=== PATIENT | male | born 1955 | race Caucasian/White ===

== ENCOUNTER 2019-08-01 16:35 | Inpatient (IN) | payer MEDICAID ==
[~2019-08-01] VITALS: Ht 182.9 cm; Wt 83.2 kg
[2019-08-01 17:11] LABS: BASO # 0.1 x10^3/uL (0.0-0.2); BASO % 1 % (0-3); EOS # 0.1 x10^3/uL (0.0-0.7); EOS % 1 % (0-3); HEMATOCRIT 40.9 % (39.0-53.0); HEMOGLOBIN 14.5 g/dL (13.0-17.5); LYMPH # 2.7 x10^3/uL (1.0-4.8); LYMPH % 33 % (24-48); MEAN CORPUSCULAR HEMOGLOBIN 32 pg (25-35); MEAN CORPUSCULAR HGB CONC 36 g/dL (31-37); MEAN CORPUSCULAR VOLUME 89 fL (79-100); MONO # 0.9 x10^3/uL (0.0-1.1); MONO % 11 % (0-9); NEUT # 4.4 x10^3/uL (1.8-7.7); NEUT % 54 % (31-73); PLATELET COUNT 96 x10^3/uL (140-400); RED BLOOD COUNT 4.58 x10^6/uL (4.30-5.70); RED CELL DISTRIBUTION WIDTH 13.9 % (11.5-14.5); WHITE BLOOD COUNT 8.2 x10^3/uL (4.0-11.0)
[2019-08-01] MEDS ORDERED: IV NORMAL SALINE 1000ML BAG 1,000 ML IV ONE (17:15)
[2019-08-01 17:21] LABS: PROTHROMBIN TIME PATIENT 13.3 SEC (11.7-14.0)
[2019-08-01 17:48] LABS: ALBUMIN 2.9 g/dL (3.4-5.0); ALBUMIN/GLOBULIN RATIO 0.9 (1.0-1.7); CALCIUM 7.8 mg/dL (8.5-10.1); CREATININE 0.8 mg/dL (0.7-1.3); TOTAL BILIRUBIN 0.6 mg/dL (0.2-1.0); TOTAL PROTEIN 6.3 g/dL (6.4-8.2)
[2019-08-01 17:53] LABS: POTASSIUM 2.7 mmol/L (3.5-5.1)
[2019-08-01 17:57] LABS: FREE T4 0.86 ng/dL (0.76-1.46); THYROID STIM HORMONE (TSH) 0.34 uIU/mL (0.358-3.74)
--- NOTE | 2019-08-01 18:23 | PHYS DOC ---
Past Medical History Past Medical History: A-Fib, Arthritis, Hypertension Additional Past Medical Histor: DDD Past Surgical History: No Surgical History Smoking Status: Never Smoker Alcohol Use: Heavy General Adult EDM: Chief Complaint: ALCOHOL INTOXICATION HPI: HPI: Patient is a 64 year old male who was brought here by EMS due to alcohol intoxication. Patient was found sleeping in front of a liquor store. EMS were called, he admitted to drinking heavy amount of whiskey today. Patient is h omeless he been outside in the heat, sustained some sunburn on his extremities. Patient said he has a history of hypertension, atrial fibrillation. Patient denies any abdominal pain, no nausea vomiting, no suicidal ideation. Patient denies any cough or fever. Patient denies any headache, no neck pain. Patient denies being fallen after he drank alcohol. Review of Systems: Review of Systems: Constitutional: Denies fever or chills. [] Eyes: Denies change in visual acuity. [] HENT: Denies nasal congestion or sore throat. [] Respiratory: Denies cough or shortness of breath. [] Cardiovascular: Denies chest pain or edema. [] GI: Denies abdominal pain, nausea, vomiting, bloody stools or diarrhea. [] : Denies dysuria. [] Musculoskeletal: Denies back pain or joint pain. [] Integument: Denies rash. [] Neurologic: Denies headache, focal weakness or sensory changes. [] Endocrine: Denies polyuria or polydipsia. [] Lymphatic: Denies swollen glands. [] Psychiatric: Denies depression or anxiety. [] Heart Score: Risk Factors: Risk Factors: DM, Current or recent (<one month) smoker, HTN, HLP, family history of CAD, obesity. Risk Scores: Score 0 - 3: 2.5% MACE over next 6 weeks - Discharge Home Score 4 - 6: 20.3% MACE over next 6 weeks - Admit for Clinical Observation Score 7 - 10: 72.7% MACE over next 6 weeks - Early Invasive Strategies Current Medications: Current Medications Medications (Trade) Dose Ordered Sig/Zander Start Time Stop Time Status Last Admin Dose Admin Calcium Chloride (Calcium Chloride) 1,000 mg 1X ONCE 08/01/19 18:30 08/01/19 18:31 Diltiazem HCl (Cardizem Iv Push) 20 mg 1X ONCE 08/01/19 18:30 08/01/19 18:31 Lorazepam (Ativan Inj) 1 mg 1X ONCE 08/01/19 18:00 08/01/19 18:01 DC Potassium Chloride (Klor-Con) 80 meq 1X ONCE 08/01/19 18:30 08/01/19 18:31 Sodium Chloride 1,000 ml @ 1,000 mls/hr 1X ONCE 08/01/19 17:15 08/01/19 18:14 DC 08/01/19 17:15 1,000 MLS/HR Allergies: Allergies: Allergies Coded Allergies Type Severity Reaction Last Updated Verified No Known Drug Allergies 08/01/19 No Physical Exam: PE: Constitutional: Well developed, well nourished, no acute distress, non-toxic appearance. [] HENT: Normocephalic, atraumatic, bilateral external ears normal, oropharynx moist, no oral exudates, nose normal. [] Eyes: PERRLA, EOMI, conjunctiva normal, no discharge. [] Neck: Normal range of motion, no tenderness, supple, no stridor. [] Cardiovascular: Rapid heart rate with irregular rhythm, no murmur [] Lungs & Thorax: Bilateral breath sounds clear to auscultation [] Abdomen: Bowel sounds normal, soft, no tenderness, no masses, no pulsatile masses. [] Skin: Warm, dry,erythema, sunburn pattern, 1st degree on upper and lower extremities, no blisters. Back: No tenderness, no CVA tenderness. [] Extremities: pitting edema in lower extremities, 3 plus. No bony tenderness, no deformity. Neurologic: Alert and oriented X 3, normal motor function, normal sensory function, no focal deficits noted. [] Psychologic: Affect normal, judgement normal, mood normal. [] Current Patient Data: Labs: Laboratory Tests Test 08/01/19 16:45 08/01/19 17:15 White Blood Count 8.2 x10^3/uL (4.0-11.0) Red Blood Count 4.58 x10^6/uL (4.30-5.70) Hemoglobin 14.5 g/dL (13.0-17.5) Hematocrit 40.9 % (39.0-53.0) Mean Corpuscular Volume 89 fL (79-100) Mean Corpuscular Hemoglobin 32 pg (25-35) Mean Corpuscular Hemoglobin Concent 36 g/dL (31-37) Red Cell Distribution Width 13.9 % (11.5-14.5) Platelet Count 96 x10^3/uL (140-400) L Neutrophils (%) (Auto) 54 % (31-73) Lymphocytes (%) (Auto) 33 % (24-48) Monocytes (%) (Auto) 11 % (0-9) H Eosinophils (%) (Auto) 1 % (0-3) Basophils (%) (Auto) 1 % (0-3) Neutrophils # (Auto) 4.4 x10^3/uL (1.8-7.7) Lymphocytes # (Auto) 2.7 x10^3/uL (1.0-4.8) Monocytes # (Auto) 0.9 x10^3/uL (0.0-1.1) Eosinophils # (Auto) 0.1 x10^3/uL (0.0-0.7) Basophils # (Auto) 0.1 x10^3/uL (0.0-0.2) Prothrombin Time 13.3 SEC (11.7-14.0) Prothrombin Time INR 1.1 (0.8-1.1) Activated Partial Thromboplast Time 26 SEC (24-38) Sodium Level 147 mmol/L (136-145) H Potassium Level 2.7 mmol/L (3.5-5.1) *L Chloride Level 109 mmol/L (98-107) H Carbon Dioxide Level 22 mmol/L (21-32) Anion Gap 16 (6-14) H Blood Urea Nitrogen 8 mg/dL (8-26) Creatinine 0.8 mg/dL (0.7-1.3) Estimated GFR (Cockcroft-Gault) 98.0 BUN/Creatinine Ratio 10 (6-20) Glucose Level 101 mg/dL (70-99) H Calcium Level 7.8 mg/dL (8.5-10.1) L Total Bilirubin 0.6 mg/dL (0.2-1.0) Aspartate Amino Transferase (AST) 44 U/L (15-37) H Alanine Aminotransferase (ALT) 32 U/L (16-63) Alkaline Phosphatase 106 U/L (46-116) Troponin I Quantitative 0.037 ng/mL (0.000-0.055) DQ-Brw-U-Type Natriuretic Peptide 543 pg/mL (0-124) H Total Protein 6.3 g/dL (6.4-8.2) L Albumin 2.9 g/dL (3.4-5.0) L Albumin/Globulin Ratio 0.9 (1.0-1.7) L Lipase 144 U/L (73-393) Thyroid Stimulating Hormone (TSH) 0.340 uIU/mL (0.358-3.74) L Free Thyroxine 0.86 ng/dL (0.76-1.46) Ethyl Alcohol Level 384 mg/dL (0-10) H Laboratory Tests 08/01/19 16:45 Laboratory Tests 08/01/19 17:15 Vital Signs: Vital Signs Date Time Temp Pulse Resp B/P (MAP) Pulse Ox O2 Delivery O2 Flow Rate FiO2 08/01/19 17:11 99 16 128/72 (90) 95 Room Air 08/01/19 16:35 99.4 99.4 EKG: EKG: EKG was done at 1647, heart rate of 138 bpm, atrial fibrillation with RVR. No ST segment elevation. [] Radiology/Procedures: Radiology/Procedures: [][facility] [address] [place] [address] IMAGING REPORT Signed PATIENT: THONY GRIGGS ACCOUNT: [id number] : 1955 LOCATION: ER AGE: 64 SEX: M EXAM STATUS: PRE ER ORD. PHYSICIAN: WINDY DE JESUS DO REASON: soa PROCEDURE: CHEST AP ONLY CHEST AP ONLY 08/01/2019 6:03 PM INDICATION: Shortness of air COMPARISON: None available TECHNIQUE: Portable frontal view of the chest is provided. FINDINGS: The cardiomediastinal silhouette is within normal limits. Lungs are clear. There are no significant pleural effusions. There is no pulmonary vascular congestion. No pneumothorax. No suspicious osseous abnormality. IMPRESSION: There is no acute cardiopulmonary process. Electronically signed by: Collin Ortiz MD (08/01/2019 6:29 PM) [facility] DICTATED and SIGNED BY: COLLIN ORTIZ MD DATE: 08/01/19 1829 Course & Med Decision Making: Course & Med Decision Making Pertinent Labs and Imaging studies reviewed. (See chart for details) Patient is a 64-year-old male who is homeless, intoxicated, found to have atrial fibrillation with RVR, history of A. fib. His potassium level was low, patient was given 80 mEq of potassium p.o., he was given Cardizem IV bolus and drip. Patient was given IV fluids, he will be admitted to hospital for treatment. Critical care time was [45] minutes which includes time at bedside, spent in discussion of patient's care with specialist and/or family members, with interpretation of laboratory and/or radiological studies and is exclusive of procedures. Dragon Disclaimer: Dragon Disclaimer: This electronic medical record was generated, in whole or in part, using a voice recognition dictation system. Departure Departure Impression: Primary Impression: Atrial fibrillation with RVR Additional Impressions: Alcohol intoxication Hypokalemia Disposition: ADMITTED INPATIENT Admitting Physician: APRYL (Dr. Schultz) Condition: IMPROVED Justicifation of Admission Dx: Justifications for Admission: Justification of Admission Dx: N/A WINDY DE JESUS DO Aug 01, 2019 18:23
[2019-08-01] MEDS ORDERED: ALBUTEROL SULFATE 2.5 MG/3 ML NEBU. NEB PRN (18:30)
[2019-08-01] MEDS ORDERED: ONDANSETRON PF 4 MG/2 ML VIAL. IV PRN ×2 (18:30)
[2019-08-01] MEDS ORDERED: chlordiazePOXIDE HCL 25 MG CAPSULE PO PRN (18:30)
[2019-08-01] MEDS ORDERED: CALCIUM CHLORIDE 1,000 MG/10 ML DISP.SYRIN IV ONE (18:30)
[2019-08-01] MEDS ORDERED: POTASSIUM CHLORIDE 20 MEQ TABLET.ER. PO ONE (18:30)
[2019-08-01] MEDS ORDERED: DOCUSATE SODIUM 100 MG CAPSULE. PO PRN (18:30)
[2019-08-01] MEDS ORDERED: DILTIAZEM HCL 125 MG in IV NORMAL SALINE 100ML 100 ML IV PRN (18:30)
[2019-08-01] MEDS ORDERED: ZOLPIDEM 5 MG TABLET. PO PRN (18:30)
[2019-08-01] MEDS ORDERED: cloNIDine HCL 0.1 MG TABLET PO PRN (18:30)
[2019-08-01] MEDS ORDERED: ACETAMINOPHEN 325 MG TABLET. PO PRN (18:30)
[2019-08-01] MEDS ORDERED: guaiFENesin ORAL 200 MG/10 ML LIQUID. PO PRN (18:30)
[2019-08-01] MEDS ORDERED: dilTIAZem IV PUSH 25 MG/5 ML VIAL IVP ONE (18:30)
--- NOTE | 2019-08-01 18:32 | RAD ---
CHEST AP ONLY 08/01/2019 6:03 PM INDICATION: Shortness of air COMPARISON: None available TECHNIQUE: Portable frontal view of the chest is provided. FINDINGS: The cardiomediastinal silhouette is within normal limits. Lungs are clear. There are no significant pleural effusions. There is no pulmonary vascular congestion. No pneumothorax. No suspicious osseous abnormality. IMPRESSION: There is no acute cardiopulmonary process. Electronically signed by: Briseida Butt MD (08/01/2019 6:29 PM) [facility]
[2019-08-01] MEDS ORDERED: MULTIVIT INFUSN,ADULT 4,VIT K 10 ML, THIAMINE INJ 100 MG, FOLIC ACID INJ 1 MG in IV NOR... IV ONE (19:00)
[2019-08-01] MEDS: MULTIVIT INFUSN,ADULT 4,VIT K 10 ML, THIAMINE INJ 100 MG, FOLIC ACID INJ 1 MG in IV NOR... IV SCH (19:15)
[2019-08-01] MEDS: DILTIAZEM HCL 125 MG in IV NORMAL SALINE 100ML 100 ML IV PRN ×6 (19:15→21:44)
[2019-08-01 20:24] VITALS: BP 168/81
--- NOTE | 2019-08-01 20:47 | PDOC1 ---
History and Physical Date of Admission Date of Admission July Identification/Chief Complaint Chief Complaint My legs are hurting Source Source: Chart review, Patient History of Present Illness History of Present Illness Patient is a 64 year old male with a significant cardiac history for which he has been evaluated at [facility]. He had a cardiac cath aproximately a month ago, he does not report having stents placed, was told he had blocakges but di not warrant stents at this time. Today he was found outside of a [employer] store asleep and was brought by EMS after a concerned citizen decided to call the ambulance. He was evaluated in the ED and found to be acutely intoxicated, he developed rapid ventricular response of his underlying Atrial fibrillation reason why we were asked to admit to the hospital At the time of my visit. the patient's only complain is burning sensation over his bilateral legs due to sunburn that he endured while fishing with his buddies 2 days ago. He had been sober since and tells me he was a daily drinker of beer and bourbon but decided to "quit" in january until this fishing trip when he was prompted to drink again. He denies chest pain palpitations no shorness of breath, no nausea vomiting or diarrhea. He denies headache blurred vision or neurological deficits. Plan of care discussed in detail. Past Medical History Cardiovascular: AFIB, CAD, CHF Past Surgical History Past Surgical History: No pertinent history Family History Family History: Other (reviewed and found non contributory to the present ) Current Problem List Problem List Problems Medical Problems: (1) Alcohol intoxication Status: Acute (2) Atrial fibrillation with RVR Status: Acute (3) Hypokalemia Status: Acute Current Medications Current Medications Current Medications Medications (Trade) Dose Ordered Sig/Zander Start Time Stop Time Status Last Admin Dose Admin Acetaminophen (Tylenol) 650 mg PRN Q4HRS PRN 08/01/19 18:30 Albuterol Sulfate (Ventolin Neb Soln) 2.5 mg PRN Q4HRS PRN 08/01/19 18:30 Calcium Chloride (Calcium Chloride) 1,000 mg 1X ONCE 08/01/19 18:30 08/01/19 18:31 DC 08/01/19 18:31 1,000 MG Chlordiazepoxide (Librium) 100 mg PRN Q1HR PRN 08/01/19 18:30 Clonidine HCl (Catapres) 0.1 mg PRN Q1HR PRN 08/01/19 18:30 Diltiazem HCl (Cardizem Iv Push) 20 mg 1X ONCE 08/01/19 18:30 08/01/19 18:31 DC 08/01/19 18:31 20 MG Diltiazem HCl 125 mg/Sodium Chloride 125 ml @ 5 mls/hr CONT PRN 08/01/19 18:30 UNV Docusate Sodium (Colace) 100 mg PRN BID PRN 08/01/19 18:30 Enoxaparin Sodium (Lovenox 60mg Syringe) 60 mg Q12HR 08/01/19 21:00 Guaifenesin (Robitussin) 200 mg PRN Q4HRS PRN 08/01/19 18:30 Lorazepam (Ativan Inj) 2 mg PRN Q15MIN PRN 08/01/19 18:30 08/01/19 19:27 DC Lorazepam (Ativan) 0.5 mg PRN Q4HRS PRN 08/01/19 18:30 Multivitamins 10 ml/Thiamine HCl 100 mg/Folic Acid 1 mg/Sodium Chloride 1,011.2 ml @ 100 mls/ hr DAILY 08/02/19 09:00 08/06/19 19:07 Ondansetron HCl (Zofran) 4 mg PRN Q4HRS PRN 08/01/19 18:30 Potassium Chloride (Klor-Con) 80 meq 1X ONCE 08/01/19 18:30 08/01/19 18:31 DC 08/01/19 18:32 80 MEQ Sodium Chloride 1,000 ml @ 1,000 mls/hr 1X ONCE 08/01/19 17:15 08/01/19 18:14 DC 08/01/19 17:15 1,000 MLS/HR Zolpidem Tartrate (Ambien) 5 mg PRN QHS PRN 08/01/19 18:30 Allergies Allergies Allergies Coded Allergies Type Severity Reaction Last Updated Verified No Known Drug Allergies 08/01/19 No ROS Review of System CONSTITUTIONAL: No fever or chills EYES: No recent changes SKIN: No rash or itching CARDIOVASCULAR: No chest pain, syncope, palpitations, or edema RESPIRATORY: No SOB or cough GASTROINTESTINAL: No nausea, vomiting or abdominal pain NEUROLOGICAL: No headaches or weakness ENDOCRINE: No cold or heat intolerance GENITOURINARY: No urgency or frequency of urination MUSCULOSKELETAL: No back pain or joint pain LYMPHATICS: No enlarged lymph nodes PSYCHIATRIC: No anxiety or depression Physical Exam Physical Exam GEN.: No apparent distress. Alert and oriented. HEENT: Head is normocephalic, atraumatic NECK: Supple. LUNGS: Clear to auscultation. HEART: RRR, S1, S2 present. Peripheral pulses intact ABDOMEN: Soft, nontender. Positive bowel sounds. EXTREMITIES: Without any cyanosis. NEUROLOGIC: Normal speech, normal tone PSYCHIATRIC: Normal affect, normal mood. SKIN: No ulcerations Vitals Vitals Vital Signs Date Time Temp Pulse Resp B/P (MAP) Pulse Ox O2 Delivery O2 Flow Rate FiO2 08/01/19 20:24 97.5 130 20 168/81 (110) 94 Room Air 97.5 Labs Labs Laboratory Tests Test 08/01/19 16:45 08/01/19 17:15 White Blood Count 8.2 x10^3/uL (4.0-11.0) Red Blood Count 4.58 x10^6/uL (4.30-5.70) Hemoglobin 14.5 g/dL (13.0-17.5) Hematocrit 40.9 % (39.0-53.0) Mean Corpuscular Volume 89 fL (79-100) Mean Corpuscular Hemoglobin 32 pg (25-35) Mean Corpuscular Hemoglobin Concent 36 g/dL (31-37) Red Cell Distribution Width 13.9 % (11.5-14.5) Platelet Count 96 x10^3/uL (140-400) Neutrophils (%) (Auto) 54 % (31-73) Lymphocytes (%) (Auto) 33 % (24-48) Monocytes (%) (Auto) 11 % (0-9) Eosinophils (%) (Auto) 1 % (0-3) Basophils (%) (Auto) 1 % (0-3) Neutrophils # (Auto) 4.4 x10^3/uL (1.8-7.7) Lymphocytes # (Auto) 2.7 x10^3/uL (1.0-4.8) Monocytes # (Auto) 0.9 x10^3/uL (0.0-1.1) Eosinophils # (Auto) 0.1 x10^3/uL (0.0-0.7) Basophils # (Auto) 0.1 x10^3/uL (0.0-0.2) Prothrombin Time 13.3 SEC (11.7-14.0) Prothromb Time International Ratio 1.1 (0.8-1.1) Activated Partial Thromboplast Time 26 SEC (24-38) Sodium Level 147 mmol/L (136-145) Potassium Level 2.7 mmol/L (3.5-5.1) Chloride Level 109 mmol/L (98-107) Carbon Dioxide Level 22 mmol/L (21-32) Anion Gap 16 (6-14) Blood Urea Nitrogen 8 mg/dL (8-26) Creatinine 0.8 mg/dL (0.7-1.3) Estimated GFR (Cockcroft-Gault) 98.0 BUN/Creatinine Ratio 10 (6-20) Glucose Level 101 mg/dL (70-99) Calcium Level 7.8 mg/dL (8.5-10.1) Magnesium Level 1.6 mg/dL (1.8-2.4) Total Bilirubin 0.6 mg/dL (0.2-1.0) Aspartate Amino Transf (AST/SGOT) 44 U/L (15-37) Alanine Aminotransferase (ALT/SGPT) 32 U/L (16-63) Alkaline Phosphatase 106 U/L (46-116) Troponin I Quantitative 0.037 ng/mL (0.000-0.055) IZ-Llu-T-Type Natriuretic Peptide 543 pg/mL (0-124) Total Protein 6.3 g/dL (6.4-8.2) Albumin 2.9 g/dL (3.4-5.0) Albumin/Globulin Ratio 0.9 (1.0-1.7) Lipase 144 U/L (73-393) Thyroid Stimulating Hormone (TSH) 0.340 uIU/mL (0.358-3.74) Free Thyroxine 0.86 ng/dL (0.76-1.46) Ethyl Alcohol Level 384 mg/dL (0-10) Laboratory Tests Test 08/01/19 16:45 08/01/19 17:15 White Blood Count 8.2 x10^3/uL (4.0-11.0) Red Blood Count 4.58 x10^6/uL (4.30-5.70) Hemoglobin 14.5 g/dL (13.0-17.5) Hematocrit 40.9 % (39.0-53.0) Mean Corpuscular Volume 89 fL (79-100) Mean Corpuscular Hemoglobin 32 pg (25-35) Mean Corpuscular Hemoglobin Concent 36 g/dL (31-37) Red Cell Distribution Width 13.9 % (11.5-14.5) Platelet Count 96 x10^3/uL (140-400) Neutrophils (%) (Auto) 54 % (31-73) Lymphocytes (%) (Auto) 33 % (24-48) Monocytes (%) (Auto) 11 % (0-9) Eosinophils (%) (Auto) 1 % (0-3) Basophils (%) (Auto) 1 % (0-3) Neutrophils # (Auto) 4.4 x10^3/uL (1.8-7.7) Lymphocytes # (Auto) 2.7 x10^3/uL (1.0-4.8) Monocytes # (Auto) 0.9 x10^3/uL (0.0-1.1) Eosinophils # (Auto) 0.1 x10^3/uL (0.0-0.7) Basophils # (Auto) 0.1 x10^3/uL (0.0-0.2) Prothrombin Time 13.3 SEC (11.7-14.0) Prothromb Time International Ratio 1.1 (0.8-1.1) Activated Partial Thromboplast Time 26 SEC (24-38) Sodium Level 147 mmol/L (136-145) Potassium Level 2.7 mmol/L (3.5-5.1) Chloride Level 109 mmol/L (98-107) Carbon Dioxide Level 22 mmol/L (21-32) Anion Gap 16 (6-14) Blood Urea Nitrogen 8 mg/dL (8-26) Creatinine 0.8 mg/dL (0.7-1.3) Estimated GFR (Cockcroft-Gault) 98.0 BUN/Creatinine Ratio 10 (6-20) Glucose Level 101 mg/dL (70-99) Calcium Level 7.8 mg/dL (8.5-10.1) Magnesium Level 1.6 mg/dL (1.8-2.4) Total Bilirubin 0.6 mg/dL (0.2-1.0) Aspartate Amino Transf (AST/SGOT) 44 U/L (15-37) Alanine Aminotransferase (ALT/SGPT) 32 U/L (16-63) Alkaline Phosphatase 106 U/L (46-116) Troponin I Quantitative 0.037 ng/mL (0.000-0.055) WB-Evs-B-Type Natriuretic Peptide 543 pg/mL (0-124) Total Protein 6.3 g/dL (6.4-8.2) Albumin 2.9 g/dL (3.4-5.0) Albumin/Globulin Ratio 0.9 (1.0-1.7) Lipase 144 U/L (73-393) Thyroid Stimulating Hormone (TSH) 0.340 uIU/mL (0.358-3.74) Free Thyroxine 0.86 ng/dL (0.76-1.46) Ethyl Alcohol Level 384 mg/dL (0-10) VTE Prophylaxis Ordered VTE Prophylaxis Devices: Yes VTE Pharmacological Prophylaxi: Yes Assessment/Plan Assessment/Plan Atrial fibrillation with RVR. Probably aggravated by the effects of alcohol Hypokalemia Hyperglycemia of no clinical significance Acute alcohol intoxication History of CAD currently asymptomatic Plan: cardizem for rate control resume medications once available for review admit to [facility] floor request records from [facility] DVT prophylaxis: Lovenox Justicifation of Admission Dx: Justifications for Admission: Justification of Admission Dx: Comment: (atrial fibrillation RVR) OMAYRA WOODS MD Aug 01, 2019 20:47
[2019-08-01] MEDS: LORazepam 0.5 MG TABLET PO PRN (20:55)
[2019-08-01] MEDS: ENOXAPARIN 40 MG/0.4 ML SYRINGE. SQ SCH (21:00)
[2019-08-01] MEDS ORDERED: fentaNYL PF VIAL 100 MCG/2 ML VIAL IVP PRN (21:45)
[2019-08-01] MEDS: HYDROCORTISONE 1% TOPICAL CREAM 30GM TUBE. TP SCH (21:46)
[2019-08-01] MEDS: traZODone 50 MG TABLET. PO PRN (22:47)
[2019-08-01 23:30] VITALS: BP 130/62
[2019-08-02] MEDS: DILTIAZEM HCL 125 MG in IV NORMAL SALINE 100ML 100 ML IV PRN ×2 (03:07→22:55)
[2019-08-02 03:55] VITALS: BP 138/72
--- NOTE | 2019-08-02 04:23 | EKG ---
[facility] [address] [place] [address] Test Date: 2019-08-01 Test Time: 16:47:48 Pat Name: THONY GRIGGS Department: Room: 201 1 Gender: M Manager New Product: : 1955 Requested By: WINDY DE JESUS Order Number: [id number] Reading MD: Michael Manning MD Measurements Intervals [place] Rate: 138 P: TN: QRS: 11 QRSD: 74 T: -1 QT: 284 QTc: 437 Interpretive Statements ATRIAL FIBRILLATION WITH RVR NON-SPECIFIC ST/T CHANGES Electronically Signed On 08-06-2019 11:47:27 CDT by Michael Manning MD
[2019-08-02] MEDS: chlordiazePOXIDE HCL 25 MG CAPSULE PO PRN ×2 (05:41→12:38)
[2019-08-02 05:42] LABS: BASO # 0.1 x10^3/uL (0.0-0.2); BASO % 1 % (0-3); EOS # 0.2 x10^3/uL (0.0-0.7); EOS % 2 % (0-3); HEMATOCRIT 39.6 % (39.0-53.0); HEMOGLOBIN 13.6 g/dL (13.0-17.5); LYMPH # 2.2 x10^3/uL (1.0-4.8); LYMPH % 30 % (24-48); MEAN CORPUSCULAR HEMOGLOBIN 31 pg (25-35); MEAN CORPUSCULAR HGB CONC 34 g/dL (31-37); MEAN CORPUSCULAR VOLUME 90 fL (79-100); MONO # 0.8 x10^3/uL (0.0-1.1); MONO % 11 % (0-9); NEUT # 4.1 x10^3/uL (1.8-7.7); NEUT % 57 % (31-73); PLATELET COUNT 70 x10^3/uL (140-400); RED BLOOD COUNT 4.39 x10^6/uL (4.30-5.70); RED CELL DISTRIBUTION WIDTH 13.9 % (11.5-14.5); WHITE BLOOD COUNT 7.3 x10^3/uL (4.0-11.0)
[2019-08-02] MEDS ORDERED: FAMO-63 PO (05:45)
[2019-08-02] MEDS ORDERED: CARV6.25 PO (05:45)
[2019-08-02 05:53] LABS: CREATININE 0.8 mg/dL (0.7-1.3); MAGNESIUM 1.2 mg/dL (1.8-2.4); POTASSIUM 3.3 mmol/L (3.5-5.1)
[2019-08-02 07:00] VITALS: BP 154/74
[2019-08-02] MEDS: LORazepam 0.5 MG TABLET PO PRN (08:33)
[2019-08-02] MEDS: MULTIVIT INFUSN,ADULT 4,VIT K 10 ML, THIAMINE INJ 100 MG, FOLIC ACID INJ 1 MG in IV NOR... IV SCH (10:39)
[2019-08-02] MEDS ORDERED: OXYC1TAB19 PO (10:46)
[2019-08-02 10:57] VITALS: BP 171/88
[2019-08-02] MEDS ORDERED: POTASSIUM CHLORIDE 20 MEQ TABLET.ER. PO ONE (12:30)
[2019-08-02] MEDS: MAGNESIUM OXIDE 400 MG TABLET PO SCH (12:37)
[2019-08-02] MEDS: FAMOTIDINE 20 MG TABLET. PO SCH ×2 (12:37→19:53)
[2019-08-02] MEDS: CARVEDILOL 6.25 MG TABLET. PO SCH ×2 (12:38→17:13)
--- NOTE | 2019-08-02 12:58 | PDOC ---
GENERAL General: Patient examined chart reviewed discussed with nursing at bedside. Patient found down and intoxicated outside of an alcohol package store yesterday. He says that he had been sober for over a year until yesterday. He was living in a [facility]ci facility in [place] over the entire last year and then he left because he was angry that he was not able to keep his disability checks. He went fishing with a friend and unfortunately drank enough to become intoxicated. He was found to be in rapid atrial fibrillation in the emergency department. He tells us that he was admitted to [facility] with chest pain about a month ago we are requesting those records. He believes that he had a cardiac catheterization but no stents were placed. He has several business cards in his wallet [address] Poncho Doshi from cardiology at [facility] that he tells me he is planning on seeing. Patient has been homeless for much of the last decade except for that 1 year that he was living in the fci. He is currently homeless. We will consult social work for their assistance. We will continue his alcohol withdrawal protocol and intravenous vitamin supplementation. I have called for cardiology consultation though we may be able to avoid that if we can get his heart rate back to a stable rate off of Cardizem. We have restarted his home medications and titrating off his Cardizem infusion. We will need thick emollient for his sunburned legs patient does seem motivated to get his life back on track and he certainly is hoping to avoid continued homelessness. Total time today is 30 minutes with greater than 50% in counseling and coordination of care most of which in discussion with patient and nursing Problems: (1) Homelessness (2) Atrial fibrillation with RVR (3) Alcohol intoxication (4) Hypokalemia VITAL SIGNS Vital Signs/I&O: Vital Signs Date Time Temp Pulse Resp B/P (MAP) Pulse Ox O2 Delivery O2 Flow Rate FiO2 08/02/19 10:57 98.1 84 16 171/88 (115) 98 Room Air 98.1 I & O 08/01/19 08/01/19 08/02/19 15:00 23:00 07:00 Intake Total 240 ml 2791 ml Output Total 600 ml Balance 240 ml 2191 ml In general the patient is pleasant very chatty tremulous alert and oriented x3 no acute distress HEENT exam is unremarkable for acute abnormality Neck is soft and supple no adenopathy or thyromegaly noted Chest bilateral equal air entry though diminished throughout no crackles or wheezes are noted Heart S1-S2 normal tachycardic irregularly irregular no murmurs or gallops are noted Abdomen soft nontender nondistended no masses organomegaly noted Extremity exam is notable for significant sunburn over both anterior lower extremities without any blistering or superimposed rash. ALLERGIES Allergies: Allergies Coded Allergies Type Severity Reaction Last Updated Verified No Known Drug Allergies 08/01/19 No MEDS Medications: Current Medications Medications (Trade) Dose Ordered Sig/Zander Route PRN Reason Start Time Stop Time Status Last Admin Dose Admin Sodium Chloride 1,000 ml @ 1,000 mls/hr 1X ONCE IV 08/01/19 17:15 08/01/19 18:14 DC 08/01/19 17:15 Lorazepam (Ativan Inj) 1 mg 1X ONCE IVP 08/01/19 18:00 08/01/19 18:01 DC 08/01/19 18:31 Calcium Chloride (Calcium Chloride) 1,000 mg 1X ONCE IV 08/01/19 18:30 08/01/19 18:31 DC 08/01/19 18:31 Potassium Chloride (Klor-Con) 80 meq 1X ONCE PO 08/01/19 18:30 08/01/19 18:31 DC 08/01/19 18:32 Diltiazem HCl (Cardizem Iv Push) 20 mg 1X ONCE IVP 08/01/19 18:30 08/01/19 18:31 DC 08/01/19 18:31 Diltiazem HCl 125 mg/Sodium Chloride 125 ml @ 5 mls/hr CONT PRN IV SEE I/O RECORD 08/01/19 18:30 08/02/19 03:07 Multivitamins 10 ml/Thiamine HCl 100 mg/Folic Acid 1 mg/Sodium Chloride 1,011.2 ml @ 1,000.088 mls/hr 1X ONCE IV 08/01/19 19:00 08/01/19 20:00 DC 08/01/19 19:00 Lorazepam (Ativan) 0.5 mg PRN Q4HRS PRN PO ANXIETY / AGITATION 08/01/19 18:30 08/02/19 08:33 Multivitamins 10 ml/Thiamine HCl 100 mg/Folic Acid 1 mg/Sodium Chloride 1,011.2 ml @ 100 mls/ hr DAILY IV 08/02/19 09:00 08/06/19 19:07 08/02/19 10:39 Chlordiazepoxide (Librium) 50 mg PRN Q1HR PRN PO For CIWA 8-14 08/01/19 18:30 08/02/19 05:41 Hydrocortisone (Cortaid) 1 neftaly TID TP 08/02/19 09:00 08/01/19 21:46 Fentanyl Citrate (Fentanyl 2ml Vial) 50 mcg PRN Q3HRS PRN IVP SEVERE PAIN 7-10 08/01/19 21:45 08/02/19 08:33 Trazodone HCl (Desyrel) 50 mg PRN QHS PRN PO INSOMNIA 08/01/19 22:45 08/01/19 22:47 LAB Lab: Laboratory Tests Test 08/01/19 16:45 08/01/19 17:15 08/02/19 05:00 White Blood Count 8.2 x10^3/uL (4.0-11.0) 7.3 x10^3/uL (4.0-11.0) Red Blood Count 4.58 x10^6/uL (4.30-5.70) 4.39 x10^6/uL (4.30-5.70) Hemoglobin 14.5 g/dL (13.0-17.5) 13.6 g/dL (13.0-17.5) Hematocrit 40.9 % (39.0-53.0) 39.6 % (39.0-53.0) Mean Corpuscular Volume 89 fL (79-100) 90 fL (79-100) Mean Corpuscular Hemoglobin 32 pg (25-35) 31 pg (25-35) Mean Corpuscular Hemoglobin Concent 36 g/dL (31-37) 34 g/dL (31-37) Red Cell Distribution Width 13.9 % (11.5-14.5) 13.9 % (11.5-14.5) Platelet Count 96 x10^3/uL (140-400) L 70 x10^3/uL (140-400) L Neutrophils (%) (Auto) 54 % (31-73) 57 % (31-73) Lymphocytes (%) (Auto) 33 % (24-48) 30 % (24-48) Monocytes (%) (Auto) 11 % (0-9) H 11 % (0-9) H Eosinophils (%) (Auto) 1 % (0-3) 2 % (0-3) Basophils (%) (Auto) 1 % (0-3) 1 % (0-3) Neutrophils # (Auto) 4.4 x10^3/uL (1.8-7.7) 4.1 x10^3/uL (1.8-7.7) Lymphocytes # (Auto) 2.7 x10^3/uL (1.0-4.8) 2.2 x10^3/uL (1.0-4.8) Monocytes # (Auto) 0.9 x10^3/uL (0.0-1.1) 0.8 x10^3/uL (0.0-1.1) Eosinophils # (Auto) 0.1 x10^3/uL (0.0-0.7) 0.2 x10^3/uL (0.0-0.7) Basophils # (Auto) 0.1 x10^3/uL (0.0-0.2) 0.1 x10^3/uL (0.0-0.2) Prothrombin Time 13.3 SEC (11.7-14.0) Prothrombin Time INR 1.1 (0.8-1.1) Activated Partial Thromboplast Time 26 SEC (24-38) Sodium Level 147 mmol/L (136-145) H 142 mmol/L (136-145) Potassium Level 2.7 mmol/L (3.5-5.1) *L 3.3 mmol/L (3.5-5.1) L Chloride Level 109 mmol/L (98-107) H 106 mmol/L (98-107) Carbon Dioxide Level 22 mmol/L (21-32) 21 mmol/L (21-32) Anion Gap 16 (6-14) H 15 (6-14) H Blood Urea Nitrogen 8 mg/dL (8-26) 6 mg/dL (8-26) L Creatinine 0.8 mg/dL (0.7-1.3) 0.8 mg/dL (0.7-1.3) Estimated GFR (Cockcroft-Gault) 98.0 98.0 BUN/Creatinine Ratio 10 (6-20) Glucose Level 101 mg/dL (70-99) H 114 mg/dL (70-99) H Calcium Level 7.8 mg/dL (8.5-10.1) L 8.0 mg/dL (8.5-10.1) L Magnesium Level 1.6 mg/dL (1.8-2.4) L 1.2 mg/dL (1.8-2.4) L Total Bilirubin 0.6 mg/dL (0.2-1.0) Aspartate Amino Transferase (AST) 44 U/L (15-37) H Alanine Aminotransferase (ALT) 32 U/L (16-63) Alkaline Phosphatase 106 U/L (46-116) Troponin I Quantitative 0.037 ng/mL (0.000-0.055) RB-Jow-F-Type Natriuretic Peptide 543 pg/mL (0-124) H Total Protein 6.3 g/dL (6.4-8.2) L Albumin 2.9 g/dL (3.4-5.0) L Albumin/Globulin Ratio 0.9 (1.0-1.7) L Lipase 144 U/L (73-393) Thyroid Stimulating Hormone (TSH) 0.340 uIU/mL (0.358-3.74) L Free Thyroxine 0.86 ng/dL (0.76-1.46) Ethyl Alcohol Level 384 mg/dL (0-10) H Laboratory Tests 08/01/19 16:45 08/02/19 05:00 Laboratory Tests 08/01/19 17:15 08/02/19 05:00 IMAGING Imaging: PATIENT: THONY GRIGGS ACCOUNT: [id number] : 1955 LOCATION: ER AGE: 64 SEX: M EXAM STATUS: PRE ER ORD. PHYSICIAN: WINDY DE JESUS DO REASON: soa PROCEDURE: CHEST AP ONLY CHEST AP ONLY 08/01/2019 6:03 PM INDICATION: Shortness of air COMPARISON: None available TECHNIQUE: Portable frontal view of the chest is provided. FINDINGS: The cardiomediastinal silhouette is within normal limits. Lungs are clear. There are no significant pleural effusions. There is no pulmonary vascular congestion. No pneumothorax. No suspicious osseous abnormality. IMPRESSION: There is no acute cardiopulmonary process. 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 JODI BRAXTON MD Aug 02, 2019 12:58
[2019-08-02] MEDS ORDERED: ASPI-612 PO (13:17)
[2019-08-02] MEDS: HYDROCORTISONE 1% TOPICAL CREAM 30GM TUBE. TP SCH ×2 (13:27→19:53)
[2019-08-02] MEDS: ASPIRIN ENTERIC COATED 81 MG TABLET.DR. PO SCH (13:27)
[2019-08-02 14:53] VITALS: BP 154/84
[2019-08-02] MEDS: oxyCODONE/APAP 7.5/325 1 TAB TABLET PO PRN ×2 (16:10→22:58)
[2019-08-02 19:38] VITALS: BP 156/85
[2019-08-02] MEDS: ENOXAPARIN 40 MG/0.4 ML SYRINGE. SQ SCH (19:53)
[2019-08-02 22:30] VITALS: BP 152/88
[2019-08-03 02:30] VITALS: BP 139/79
[2019-08-03 07:00] VITALS: BP 132/81
[2019-08-03 07:44] LABS: ALBUMIN 3.1 g/dL (3.4-5.0); ALBUMIN/GLOBULIN RATIO 0.8 (1.0-1.7); CALCIUM 8.1 mg/dL (8.5-10.1); CREATININE 0.7 mg/dL (0.7-1.3); GFR 114.3; POTASSIUM 3.4 mmol/L (3.5-5.1); TOTAL BILIRUBIN 1.2 mg/dL (0.2-1.0)
[2019-08-03 07:51] LABS: BASO # 0.1 x10^3/uL (0.0-0.2); BASO % 1 % (0-3); EOS # 0.2 x10^3/uL (0.0-0.7); EOS % 4 % (0-3); HEMATOCRIT 43.1 % (39.0-53.0); HEMOGLOBIN 14.8 g/dL (13.0-17.5); LYMPH # 1.8 x10^3/uL (1.0-4.8); LYMPH % 28 % (24-48); MEAN CORPUSCULAR HEMOGLOBIN 31 pg (25-35); MEAN CORPUSCULAR HGB CONC 34 g/dL (31-37); MEAN CORPUSCULAR VOLUME 90 fL (79-100); MONO # 0.5 x10^3/uL (0.0-1.1); MONO % 8 % (0-9); NEUT # 3.8 x10^3/uL (1.8-7.7); NEUT % 59 % (31-73); PLATELET COUNT 70 x10^3/uL (140-400); RED BLOOD COUNT 4.78 x10^6/uL (4.30-5.70); RED CELL DISTRIBUTION WIDTH 14.2 % (11.5-14.5); WHITE BLOOD COUNT 6.5 x10^3/uL (4.0-11.0)
--- NOTE | 2019-08-03 08:02 | PDOC ---
PROGRESS NOTES Chief Complaint Chief Complaint A/P: Atrial fibrillation with RVR. Probably aggravated by the effects of alcohol Hypokalemia Hypomagnesemia Weakness Hyperglycemia of no clinical significance Acute alcohol intoxication History of CAD currently asymptomatic Housing insecure FEN - Cardiac diet PPX - heparin FULL CODE Dispo - cont inpatient History of Present Illness History of Present Illness Mr Retana is a 64yo M w/ PMHX Afib, CAD, CHF who was found outside of a liquor store asleep and was brought by EMS after a concerned citizen decided to call the ambulance. He was evaluated in the ED and found to be acutely intoxicated, he developed rapid ventricular response of his underlying Atrial fibrillation He denies chest pain palpitations no shorness of breath, no nausea vomiting or diarrhea. He denies headache blurred vision or neurological deficits. Plan of care discussed in detail. Still very weak today. K 3.4, Mg 1.2. He is currently homeless, but is willing to find sober living. He is worried about SNF as he feels he lost most his money last time he was placed in SNF. Vitals Vitals Vital Signs Date Time Temp Pulse Resp B/P (MAP) Pulse Ox O2 Delivery O2 Flow Rate FiO2 08/03/19 02:30 98.3 75 18 139/79 (99) 93 Room Air 98.3 Physical Exam General: Alert, Oriented X3, Cooperative Heart: Other (Irregularly irregular) Lungs: Wheezing Abdomen: Normal bowel sounds, Soft Extremities: No clubbing, No cyanosis Skin: No rashes, No breakdown Labs LABS Laboratory Tests Test 08/03/19 06:45 White Blood Count 6.5 x10^3/uL (4.0-11.0) Red Blood Count 4.78 x10^6/uL (4.30-5.70) Hemoglobin 14.8 g/dL (13.0-17.5) Hematocrit 43.1 % (39.0-53.0) Mean Corpuscular Volume 90 fL (79-100) Mean Corpuscular Hemoglobin 31 pg (25-35) Mean Corpuscular Hemoglobin Concent 34 g/dL (31-37) Red Cell Distribution Width 14.2 % (11.5-14.5) Platelet Count 70 x10^3/uL (140-400) Neutrophils (%) (Auto) 59 % (31-73) Lymphocytes (%) (Auto) 28 % (24-48) Monocytes (%) (Auto) 8 % (0-9) Eosinophils (%) (Auto) 4 % (0-3) Basophils (%) (Auto) 1 % (0-3) Neutrophils # (Auto) 3.8 x10^3/uL (1.8-7.7) Lymphocytes # (Auto) 1.8 x10^3/uL (1.0-4.8) Monocytes # (Auto) 0.5 x10^3/uL (0.0-1.1) Eosinophils # (Auto) 0.2 x10^3/uL (0.0-0.7) Basophils # (Auto) 0.1 x10^3/uL (0.0-0.2) Sodium Level 137 mmol/L (136-145) Potassium Level 3.4 mmol/L (3.5-5.1) Chloride Level 99 mmol/L (98-107) Carbon Dioxide Level 30 mmol/L (21-32) Anion Gap 8 (6-14) Blood Urea Nitrogen 4 mg/dL (8-26) Creatinine 0.7 mg/dL (0.7-1.3) Estimated GFR (Cockcroft-Gault) 114.3 BUN/Creatinine Ratio 6 (6-20) Glucose Level 121 mg/dL (70-99) Calcium Level 8.1 mg/dL (8.5-10.1) Total Bilirubin 1.2 mg/dL (0.2-1.0) Aspartate Amino Transf (AST/SGOT) 35 U/L (15-37) Alanine Aminotransferase (ALT/SGPT) 30 U/L (16-63) Alkaline Phosphatase 100 U/L (46-116) Total Protein 7.0 g/dL (6.4-8.2) Albumin 3.1 g/dL (3.4-5.0) Albumin/Globulin Ratio 0.8 (1.0-1.7) Assessment and Plan Assessmemt and Plan Problems Medical Problems: (1) Alcohol intoxication Status: Acute (2) Atrial fibrillation with RVR Status: Acute (3) Hypokalemia Status: Acute Comment Review of Relevant I have reviewed the following items patti (where applicable) has been applied. Labs Laboratory Tests Test 08/01/19 16:45 08/01/19 17:15 08/02/19 05:00 08/03/19 06:45 White Blood Count 8.2 x10^3/uL (4.0-11.0) 7.3 x10^3/uL (4.0-11.0) 6.5 x10^3/uL (4.0-11.0) Red Blood Count 4.58 x10^6/uL (4.30-5.70) 4.39 x10^6/uL (4.30-5.70) 4.78 x10^6/uL (4.30-5.70) Hemoglobin 14.5 g/dL (13.0-17.5) 13.6 g/dL (13.0-17.5) 14.8 g/dL (13.0-17.5) Hematocrit 40.9 % (39.0-53.0) 39.6 % (39.0-53.0) 43.1 % (39.0-53.0) Mean Corpuscular Volume 89 fL (79-100) 90 fL (79-100) 90 fL (79-100) Mean Corpuscular Hemoglobin 32 pg (25-35) 31 pg (25-35) 31 pg (25-35) Mean Corpuscular Hemoglobin Concent 36 g/dL (31-37) 34 g/dL (31-37) 34 g/dL (31-37) Red Cell Distribution Width 13.9 % (11.5-14.5) 13.9 % (11.5-14.5) 14.2 % (11.5-14.5) Platelet Count 96 x10^3/uL (140-400) 70 x10^3/uL (140-400) 70 x10^3/uL (140-400) Neutrophils (%) (Auto) 54 % (31-73) 57 % (31-73) 59 % (31-73) Lymphocytes (%) (Auto) 33 % (24-48) 30 % (24-48) 28 % (24-48) Monocytes (%) (Auto) 11 % (0-9) 11 % (0-9) 8 % (0-9) Eosinophils (%) (Auto) 1 % (0-3) 2 % (0-3) 4 % (0-3) Basophils (%) (Auto) 1 % (0-3) 1 % (0-3) 1 % (0-3) Neutrophils # (Auto) 4.4 x10^3/uL (1.8-7.7) 4.1 x10^3/uL (1.8-7.7) 3.8 x10^3/uL (1.8-7.7) Lymphocytes # (Auto) 2.7 x10^3/uL (1.0-4.8) 2.2 x10^3/uL (1.0-4.8) 1.8 x10^3/uL (1.0-4.8) Monocytes # (Auto) 0.9 x10^3/uL (0.0-1.1) 0.8 x10^3/uL (0.0-1.1) 0.5 x10^3/uL (0.0-1.1) Eosinophils # (Auto) 0.1 x10^3/uL (0.0-0.7) 0.2 x10^3/uL (0.0-0.7) 0.2 x10^3/uL (0.0-0.7) Basophils # (Auto) 0.1 x10^3/uL (0.0-0.2) 0.1 x10^3/uL (0.0-0.2) 0.1 x10^3/uL (0.0-0.2) Prothrombin Time 13.3 SEC (11.7-14.0) Prothromb Time International Ratio 1.1 (0.8-1.1) Activated Partial Thromboplast Time 26 SEC (24-38) Sodium Level 147 mmol/L (136-145) 142 mmol/L (136-145) 137 mmol/L (136-145) Potassium Level 2.7 mmol/L (3.5-5.1) 3.3 mmol/L (3.5-5.1) 3.4 mmol/L (3.5-5.1) Chloride Level 109 mmol/L (98-107) 106 mmol/L (98-107) 99 mmol/L (98-107) Carbon Dioxide Level 22 mmol/L (21-32) 21 mmol/L (21-32) 30 mmol/L (21-32) Anion Gap 16 (6-14) 15 (6-14) 8 (6-14) Blood Urea Nitrogen 8 mg/dL (8-26) 6 mg/dL (8-26) 4 mg/dL (8-26) Creatinine 0.8 mg/dL (0.7-1.3) 0.8 mg/dL (0.7-1.3) 0.7 mg/dL (0.7-1.3) Estimated GFR (Cockcroft-Gault) 98.0 98.0 114.3 BUN/Creatinine Ratio 10 (6-20) 6 (6-20) Glucose Level 101 mg/dL (70-99) 114 mg/dL (70-99) 121 mg/dL (70-99) Calcium Level 7.8 mg/dL (8.5-10.1) 8.0 mg/dL (8.5-10.1) 8.1 mg/dL (8.5-10.1) Magnesium Level 1.6 mg/dL (1.8-2.4) 1.2 mg/dL (1.8-2.4) Total Bilirubin 0.6 mg/dL (0.2-1.0) 1.2 mg/dL (0.2-1.0) Aspartate Amino Transf (AST/SGOT) 44 U/L (15-37) 35 U/L (15-37) Alanine Aminotransferase (ALT/SGPT) 32 U/L (16-63) 30 U/L (16-63) Alkaline Phosphatase 106 U/L (46-116) 100 U/L (46-116) Troponin I Quantitative 0.037 ng/mL (0.000-0.055) XF-Txn-K-Type Natriuretic Peptide 543 pg/mL (0-124) Total Protein 6.3 g/dL (6.4-8.2) 7.0 g/dL (6.4-8.2) Albumin 2.9 g/dL (3.4-5.0) 3.1 g/dL (3.4-5.0) Albumin/Globulin Ratio 0.9 (1.0-1.7) 0.8 (1.0-1.7) Lipase 144 U/L (73-393) Thyroid Stimulating Hormone (TSH) 0.340 uIU/mL (0.358-3.74) Free Thyroxine 0.86 ng/dL (0.76-1.46) Ethyl Alcohol Level 384 mg/dL (0-10) Laboratory Tests Test 08/03/19 06:45 White Blood Count 6.5 x10^3/uL (4.0-11.0) Red Blood Count 4.78 x10^6/uL (4.30-5.70) Hemoglobin 14.8 g/dL (13.0-17.5) Hematocrit 43.1 % (39.0-53.0) Mean Corpuscular Volume 90 fL (79-100) Mean Corpuscular Hemoglobin 31 pg (25-35) Mean Corpuscular Hemoglobin Concent 34 g/dL (31-37) Red Cell Distribution Width 14.2 % (11.5-14.5) Platelet Count 70 x10^3/uL (140-400) Neutrophils (%) (Auto) 59 % (31-73) Lymphocytes (%) (Auto) 28 % (24-48) Monocytes (%) (Auto) 8 % (0-9) Eosinophils (%) (Auto) 4 % (0-3) Basophils (%) (Auto) 1 % (0-3) Neutrophils # (Auto) 3.8 x10^3/uL (1.8-7.7) Lymphocytes # (Auto) 1.8 x10^3/uL (1.0-4.8) Monocytes # (Auto) 0.5 x10^3/uL (0.0-1.1) Eosinophils # (Auto) 0.2 x10^3/uL (0.0-0.7) Basophils # (Auto) 0.1 x10^3/uL (0.0-0.2) Sodium Level 137 mmol/L (136-145) Potassium Level 3.4 mmol/L (3.5-5.1) Chloride Level 99 mmol/L (98-107) Carbon Dioxide Level 30 mmol/L (21-32) Anion Gap 8 (6-14) Blood Urea Nitrogen 4 mg/dL (8-26) Creatinine 0.7 mg/dL (0.7-1.3) Estimated GFR (Cockcroft-Gault) 114.3 BUN/Creatinine Ratio 6 (6-20) Glucose Level 121 mg/dL (70-99) Calcium Level 8.1 mg/dL (8.5-10.1) Total Bilirubin 1.2 mg/dL (0.2-1.0) Aspartate Amino Transf (AST/SGOT) 35 U/L (15-37) Alanine Aminotransferase (ALT/SGPT) 30 U/L (16-63) Alkaline Phosphatase 100 U/L (46-116) Total Protein 7.0 g/dL (6.4-8.2) Albumin 3.1 g/dL (3.4-5.0) Albumin/Globulin Ratio 0.8 (1.0-1.7) Medications Current Medications Sodium Chloride 1,000 ml @ 1,000 mls/hr 1X ONCE IV Last administered on 08/01/19at 17:15; Start 08/01/19 at 17:15; Stop 08/01/19 at 18:14; Status DC Lorazepam (Ativan Inj) 1 mg 1X ONCE IVP Last administered on 08/01/19at 18:31; Start 08/01/19 at 18:00; Stop 08/01/19 at 18:01; Status DC Calcium Chloride (Calcium Chloride) 1,000 mg 1X ONCE IV Last administered on 08/01/19at 18:31; Start 08/01/19 at 18:30; Stop 08/01/19 at 18:31; Status DC Potassium Chloride (Klor-Con) 80 meq 1X ONCE PO Last administered on 08/01/19at 18:32; Start 08/01/19 at 18:30; Stop 08/01/19 at 18:31; Status DC Diltiazem HCl (Cardizem Iv Push) 20 mg 1X ONCE IVP Last administered on 08/01/19at 18:31; Start 08/01/19 at 18:30; Stop 08/01/19 at 18:31; Status DC Diltiazem HCl 125 mg/Sodium Chloride 125 ml @ 5 mls/hr CONT PRN IV SEE I/O RECORD Last administered on 08/02/19at 22:55; Start 08/01/19 at 18:30 Ondansetron HCl (Zofran) 4 mg PRN Q8HRS PRN IV NAUSEA/VOMITING; Start 08/01/19 at 18:30; Stop 08/02/19 at 18:29; Status UNV Multivitamins 10 ml/Thiamine HCl 100 mg/Folic Acid 1 mg/Sodium Chloride 1,011.2 ml @ 1,000.088 mls/hr 1X ONCE IV Last administered on 08/01/19at 19:00; Start 08/01/19 at 19:00; Stop 08/01/19 at 20:00; Status DC Ondansetron HCl (Zofran) 4 mg PRN Q4HRS PRN IV NAUSEA/VOMITING Last administered on 08/02/19at 16:10; Start 08/01/19 at 18:30 Zolpidem Tartrate (Ambien) 5 mg PRN QHS PRN PO INSOMNIA Last administered on 08/02/19at 22:58; Start 08/01/19 at 18:30 Acetaminophen (Tylenol) 650 mg PRN Q4HRS PRN PO TEMP OVER 100.4F OR MILD PAIN; Start 08/01/19 at 18:30 Docusate Sodium (Colace) 100 mg PRN BID PRN PO HARD STOOLS; Start 08/01/19 at 18:30 Albuterol Sulfate (Ventolin Neb Soln) 2.5 mg PRN Q4HRS PRN NEB SHORTNESS OF BREATH; Start 08/01/19 at 18:30 Guaifenesin (Robitussin) 200 mg PRN Q4HRS PRN PO COUGH; Start 08/01/19 at 18:30 Lorazepam (Ativan) 0.5 mg PRN Q4HRS PRN PO ANXIETY / AGITATION Last administered on 08/02/19at 08:33; Start 08/01/19 at 18:30 Enoxaparin Sodium (Lovenox 60mg Syringe) 60 mg Q12HR SQ ; Start 08/01/19 at 21:00; Status Cancel Multivitamins 10 ml/Thiamine HCl 100 mg/Folic Acid 1 mg/Sodium Chloride 1,011.2 ml @ 100 mls/ hr DAILY IV Last administered on 08/02/19at 10:39; Start 08/02/19 at 09:00; Stop 08/06/19 at 19:07 Chlordiazepoxide (Librium) 50 mg PRN Q1HR PRN PO For CIWA 8-14 Last administered on 08/02/19at 12:38; Start 08/01/19 at 18:30 Chlordiazepoxide (Librium) 100 mg PRN Q1HR PRN PO For CIWA 15 or greater; Start 08/01/19 at 18:30 Clonidine HCl (Catapres) 0.1 mg PRN Q1HR PRN PO SBP > 180 or DBP > 100, MRX3; Start 08/01/19 at 18:30 Lorazepam (Ativan Inj) 2 mg PRN Q15MIN PRN IV SEE COMMENTS; Start 08/01/19 at 18:30; Stop 08/01/19 at 19:27; Status DC Diltiazem HCl 125 mg/Sodium Chloride 125 ml @ 5 mls/hr CONT PRN IV SEE I/O RECORD; Start 08/01/19 at 18:30; Status UNV Enoxaparin Sodium (Lovenox 40mg Syringe) 40 mg Q24H SQ Last administered on 08/02/19 19:53; Start 08/01/19 at 21:00 Hydrocortisone (Cortaid) 1 neftaly TID TP Last administered on 08/02/19 19:53; Start 08/02/19 at 09:00 Fentanyl Citrate (Fentanyl 2ml Vial) 50 mcg PRN Q3HRS PRN IVP SEVERE PAIN 7-10 Last administered on 08/02/19 08:33; Start 08/01/19 at 21:45 Trazodone HCl (Desyrel) 50 mg PRN QHS PRN PO INSOMNIA Last administered on 08/01/19at 22:47; Start 08/01/19 at 22:45 Carvedilol (Coreg) 6.25 mg BIDWMEALS PO Last administered on 08/02/19 17:13; Start 08/02/19 at 12:00 Famotidine (Pepcid) 20 mg BID PO Last administered on 08/02/19 19:53; Start 08/02/19 at 12:00 Oxycodone/ Acetaminophen (Percocet 7.5/ 325) 1 tab PRN Q6HRS PRN PO MODERATE TO SEVERE PAIN Last administered on 08/02/19 22:58; Start 08/02/19 at 12:15 Potassium Chloride (Klor-Con) 20 meq 1X ONCE PO Last administered on 08/02/19 12:37; Start 08/02/19 at 12:30; Stop 08/02/19 at 12:31; Status DC Magnesium Oxide (Magnesium Oxide) 400 mg DAILY PO Last administered on 6/7/20at 12:37; Start 08/02/19 at 12:30 Aspirin (Ecotrin) 81 mg DAILY PO Last administered on 08/02/19at 13:27; Start 08/02/19 at 13:30 Active Scripts Active Reported Aspirin Ec (Aspirin) 81 Mg Tablet. 1 Tab PO DAILY Percocet 7.5-325 Mg Tablet (Oxycodone/Acetaminophen) 1 Each Tablet 1 Tab PO PRN Q6HRS PRN Pepcid (Famotidine) 20 Mg Tablet 20 Mg PO BID Coreg (Carvedilol) 6.25 Mg Tablet 6.25 Mg PO BIDWMEALS Vitals/I & O Vital Sign - Last 24 Hours 08/02/19 08/02/19 08/02/19 08/02/19 09:13 10:57 12:38 14:53 Temp 98.1 97.9 98.1 97.9 Pulse 84 84 85 Resp 16 16 B/P (MAP) 171/88 (115) 171/88 154/84 (107) Pulse Ox 94 98 95 O2 Delivery Room Air Room Air Room Air 08/02/19 08/02/19 08/02/19 08/02/19 17:13 19:38 20:00 22:30 Temp 97.8 98.3 97.8 98.3 Pulse 85 81 77 Resp 18 18 B/P (MAP) 154/84 156/85 (108) 152/88 (109) Pulse Ox 96 94 O2 Delivery Room Air Room Air Room Air 08/02/19 08/03/19 22:58 02:30 Temp 98.3 98.3 Pulse 75 Resp 18 B/P (MAP) 139/79 (99) Pulse Ox 93 O2 Delivery Room Air Room Air Intake and Output 08/02/19 08/02/19 08/03/19 15:00 23:00 07:00 Intake Total 380 ml 0 ml 120 ml Output Total 550 ml 350 ml 900 ml Balance -170 ml -350 ml -780 ml PERRY DAVIS MD Aug 03, 2019 08:02
[2019-08-03] MEDS: chlordiazePOXIDE HCL 25 MG CAPSULE PO PRN ×2 (08:58→13:41)
[2019-08-03] MEDS: oxyCODONE/APAP 7.5/325 1 TAB TABLET PO PRN ×3 (08:59→22:20)
[2019-08-03] MEDS: MAGNESIUM OXIDE 400 MG TABLET PO SCH (09:00)
[2019-08-03] MEDS: FAMOTIDINE 20 MG TABLET. PO SCH ×2 (09:00→20:31)
[2019-08-03] MEDS: MULTIVIT INFUSN,ADULT 4,VIT K 10 ML, THIAMINE INJ 100 MG, FOLIC ACID INJ 1 MG in IV NOR... IV SCH (09:00)
[2019-08-03] MEDS: ASPIRIN ENTERIC COATED 81 MG TABLET.DR. PO SCH (09:00)
[2019-08-03] MEDS: CARVEDILOL 6.25 MG TABLET. PO SCH (09:00)
[2019-08-03] MEDS: HYDROCORTISONE 1% TOPICAL CREAM 30GM TUBE. TP SCH ×3 (09:01→20:34)
[2019-08-03 11:00] VITALS: BP 133/83
--- NOTE | 2019-08-03 12:51 | PDOC2 ---
RAMILA KEYES NOUGAT CANDY MAKER HELPER 08/03/19 1251: CARDIAC CONSULT DATE OF CONSULT Date of Consult DATE: 08/03/19 TIME: 12:41 REASON FOR CONSULT Reason for Consult: AFIB RVR REFERRING PHYSICIAN Referring Physician: Dr. Head SOURCE Source: Chart review, Patient HISTORY OF PRESENT ILLNESS HISTORY OF PRESENT ILLNESS This is a 64 yo male who presented secondary to alcohol intoxication. Was found sleeping in front of liquor store. Was noted in AFIB with RVR, which prompted this consult. Patient reports h/o AFIB and valvular disease. Follows closely with [facility] cardiology, Dr. Doshi. Has had extensive cardiac workup. Has history of ETOH abuse. Is homeless. Reports that he began drinking over the weekend with friend out on the [place], but had been sober since before [place] of last year. Denies any chest pain, dizziness, diaphoresis, or nausea/vomiting. Did notice palpitations when he first arrived, which have resolved. PAST MEDICAL HISTORY Cardiovascular: AFIB, CHF, HTN CENTRAL NERVOUS SYSTEM: CVA, Periperal neuropathy Psych: Anxiety, Depression Musculoskeletal: Osteoarthritis, Other (DDD, chronic pain) PAST SURGICAL HISTORY Past Surgical History: No pertinent history FAMILY HISTORY Family History: Hypertension SOCIAL HISTORY ALCOHOL: heavy (periods of sobriety) Drugs: None Lives: Homeless CURRENT MEDICATIONS CURRENT MEDICATIONS Current Medications Medications (Trade) Dose Ordered Sig/Zander Route PRN Reason Start Time Stop Time Status Last Admin Dose Admin Aspirin (Ecotrin) 81 mg DAILY PO 08/02/19 13:30 08/03/19 09:00 ALLERGIES ALLERGIES: Coded Allergies: Penicillins (Verified Allergy, Unknown, Unknown, 08/03/19) BEEN SO LONG NOT SURE WAS 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 ROS Review of System 14 point ROS conducted with pertinent positives noted above in HPI PHYSICAL EXAM General: Alert, Oriented X3, Cooperative, No acute distress HEENT: Atraumatic, Mucous membr. moist/pink Lungs: Clear to auscultation Heart: Regular rate, Other (2/6 systolic murmur) Abdomen: Soft, No tenderness Extremities: Normal pulses, Other (trace bilateral LE edema. ) Neuro: Normal speech, Sensation intact Psych/Mental Status: Other (anxious ) MUSCULOSKELETAL: Osteoarthritic changes both hands VITALS/I&O VITALS/I&O: Vital Signs Date Time Temp Pulse Resp B/P (MAP) Pulse Ox O2 Delivery O2 Flow Rate FiO2 08/03/19 11:00 98.2 74 18 133/83 (100) 93 Room Air 98.2 I & O 08/02/19 08/02/19 08/03/19 15:00 23:00 07:00 Intake Total 380 ml 0 ml 120 ml Output Total 550 ml 350 ml 900 ml Balance -170 ml -350 ml -780 ml LABS Lab: Laboratory Tests Test 08/03/19 06:45 White Blood Count 6.5 x10^3/uL (4.0-11.0) Red Blood Count 4.78 x10^6/uL (4.30-5.70) Hemoglobin 14.8 g/dL (13.0-17.5) Hematocrit 43.1 % (39.0-53.0) Mean Corpuscular Volume 90 fL (79-100) Mean Corpuscular Hemoglobin 31 pg (25-35) Mean Corpuscular Hemoglobin Concent 34 g/dL (31-37) Red Cell Distribution Width 14.2 % (11.5-14.5) Platelet Count 70 x10^3/uL (140-400) L Neutrophils (%) (Auto) 59 % (31-73) Lymphocytes (%) (Auto) 28 % (24-48) Monocytes (%) (Auto) 8 % (0-9) Eosinophils (%) (Auto) 4 % (0-3) H Basophils (%) (Auto) 1 % (0-3) Neutrophils # (Auto) 3.8 x10^3/uL (1.8-7.7) Lymphocytes # (Auto) 1.8 x10^3/uL (1.0-4.8) Monocytes # (Auto) 0.5 x10^3/uL (0.0-1.1) Eosinophils # (Auto) 0.2 x10^3/uL (0.0-0.7) Basophils # (Auto) 0.1 x10^3/uL (0.0-0.2) Sodium Level 137 mmol/L (136-145) Potassium Level 3.4 mmol/L (3.5-5.1) L Chloride Level 99 mmol/L (98-107) Carbon Dioxide Level 30 mmol/L (21-32) Anion Gap 8 (6-14) Blood Urea Nitrogen 4 mg/dL (8-26) L Creatinine 0.7 mg/dL (0.7-1.3) Estimated GFR (Cockcroft-Gault) 114.3 BUN/Creatinine Ratio 6 (6-20) Glucose Level 121 mg/dL (70-99) H Calcium Level 8.1 mg/dL (8.5-10.1) L Total Bilirubin 1.2 mg/dL (0.2-1.0) H Aspartate Amino Transferase (AST) 35 U/L (15-37) Alanine Aminotransferase (ALT) 30 U/L (16-63) Alkaline Phosphatase 100 U/L (46-116) Total Protein 7.0 g/dL (6.4-8.2) Albumin 3.1 g/dL (3.4-5.0) L Albumin/Globulin Ratio 0.8 (1.0-1.7) L Laboratory Tests 08/03/19 06:45 Laboratory Tests 08/03/19 06:45 ASSESSMENT/PLAN ASSESSMENT/PLAN 1. ETOH abuse, intoxication 2. PAFIB; with RVR upon arrival. Follows with [facility] cardiology, Dr. Doshi. Reports recent echocardiogram and angiogram. Converted back to SR. Rate controlled on Cardizem gtt 3. Chronic presumed systolic CHF 4. Hypertension; controlled 5. Hyperlipidemia 6. Hypokalemia, hypomagnesemia 7. H/o CVA 8. Depression, anxiety 9. Chronic pain associated with DDD Recommendations Replace Mg, K Stop Coreg. Will start Toprol for rate control. Titrate off Cardizem gtt ASA therapy. Reports he was previously on OAC, but this has been discontinued. Probable poor candidate due to ETOH abuse. Will defer to primary plaster form maker. Add ACEi for HF optimization Obtain records from [facility] Consult social media community manager for homelessness. Supportive care BEV BUNDY MD 08/03/19 4591: CARDIAC CONSULT ASSESSMENT/PLAN ASSESSMENT/PLAN Patient seen and examined Discussed with our nurse practitioner I agree with her assessment and plan. Paroxysmal atrial fibrillation with initial rapid ventricular response. Patient converted to sinus rhythm overnight. Will use Toprol for rate control. Reportedly previously on OAC's but discontinued possibly due to his history of alcohol abuse. We will follow-up with his primary plaster form maker. EtOH abuse. Continue routine withdrawal protocols. Controlled hypertension. Hyperlipidemia with continuation of present medications. Social service evaluation. Thank you for allowing us to participate in the care of your patient. RAMILA KEYES APRN Aug 03, 2019 12:51 BEV BUNDY MD Aug 03, 2019 16:55
[2019-08-03 13:33] LABS: CHOLESTEROL/HDL RATIO 1.8
[2019-08-03] MEDS: METOPROLOL SUCC 24HR ER 50 MG TAB.ER.24H. PO SCH (13:42)
[2019-08-03 15:00] VITALS: BP 128/78
[2019-08-03] MEDS ORDERED: MAGNESIUM SULFATE 2GM 50 ML IV ONE (15:15)
[2019-08-03] MEDS: LORazepam 0.5 MG TABLET PO PRN ×2 (15:40→20:31)
[2019-08-03] MEDS ORDERED: POTASSIUM CHLORIDE 20 MEQ TABLET.ER. PO ONE (16:00)
[2019-08-03] MEDS ORDERED: MAGNESIUM SULFATE 4GM 100 ML IV ONE (18:00)
[2019-08-03 19:00] VITALS: BP 132/79
[2019-08-03] MEDS: ENOXAPARIN 40 MG/0.4 ML SYRINGE. SQ SCH (20:32)
[2019-08-03] MEDS: traZODone 50 MG TABLET. PO PRN (22:20)
[2019-08-03 23:04] VITALS: BP 176/97
[2019-08-04 03:02] VITALS: BP 125/63
[2019-08-04 05:43] LABS: CALCIUM 8.3 mg/dL (8.5-10.1); CREATININE 0.9 mg/dL (0.7-1.3); GFR 85.5; POTASSIUM 3.8 mmol/L (3.5-5.1)
[2019-08-04 07:00] VITALS: BP 129/82
[2019-08-04] MEDS: METOPROLOL SUCC 24HR ER 50 MG TAB.ER.24H. PO SCH (08:43)
[2019-08-04] MEDS: LISINOPRIL 5 MG TABLET. PO SCH (08:43)
[2019-08-04] MEDS: ASPIRIN ENTERIC COATED 81 MG TABLET.DR. PO SCH (08:44)
[2019-08-04] MEDS: oxyCODONE/APAP 7.5/325 1 TAB TABLET PO PRN (08:44)
[2019-08-04] MEDS: FAMOTIDINE 20 MG TABLET. PO SCH ×2 (08:44→20:16)
[2019-08-04] MEDS: chlordiazePOXIDE HCL 25 MG CAPSULE PO PRN ×2 (08:44→21:16)
[2019-08-04] MEDS: MAGNESIUM OXIDE 400 MG TABLET PO SCH (08:44)
[2019-08-04] MEDS: HYDROCORTISONE 1% TOPICAL CREAM 30GM TUBE. TP SCH ×2 (08:45→14:00)
[2019-08-04] MEDS: MULTIVIT INFUSN,ADULT 4,VIT K 10 ML, THIAMINE INJ 100 MG, FOLIC ACID INJ 1 MG in IV NOR... IV SCH ×2 (09:00→15:55)
--- NOTE | 2019-08-04 10:18 | PDOC ---
PROGRESS NOTES Chief Complaint Chief Complaint A/P: Atrial fibrillation with RVR. Probably aggravated by the effects of alcohol Hypokalemia Hypomagnesemia Weakness Hyperglycemia of no clinical significance Acute alcohol intoxication History of CAD currently asymptomatic Housing insecure FEN - Cardiac diet PPX - heparin FULL CODE Dispo - cont inpatient History of Present Illness History of Present Illness Mr Retana is a 64yo M w/ PMHX Afib, CAD, CHF who was found outside of a liquor store asleep and was brought by EMS after a concerned citizen decided to call the ambulance. He was evaluated in the ED and found to be acutely intoxicated, he developed rapid ventricular response of his underlying Atrial fibrillation He denies chest pain palpitations no shorness of breath, no nausea vomiting or diarrhea. He denies headache blurred vision or neurological deficits. Plan of care discussed in detail. 08/02: Still very weak today. K 3.4, Mg 1.2. He is currently homeless, but is willing to find sober living. He is worried about SNF as he feels he lost most his money last time he was placed in SNF. He is a bit more confused now, trying to leave the hospital. Responsive to redirection and ativan. Vitals Vitals Vital Signs Date Time Temp Pulse Resp B/P (MAP) Pulse Ox O2 Delivery O2 Flow Rate FiO2 08/04/19 09:44 Room Air 08/04/19 08:43 78 129/82 08/04/19 07:00 97.8 18 97 97.8 Physical Exam General: Alert, Oriented X3, Cooperative Heart: Other (Irregularly irregular) Lungs: Wheezing Abdomen: Normal bowel sounds, Soft Extremities: No clubbing, No cyanosis Skin: No rashes, No breakdown Labs LABS Laboratory Tests Test 08/04/19 04:30 Sodium Level 136 mmol/L (136-145) Potassium Level 3.8 mmol/L (3.5-5.1) Chloride Level 101 mmol/L (98-107) Carbon Dioxide Level 26 mmol/L (21-32) Anion Gap 9 (6-14) Blood Urea Nitrogen 6 mg/dL (8-26) Creatinine 0.9 mg/dL (0.7-1.3) Estimated GFR (Cockcroft-Gault) 85.5 Glucose Level 104 mg/dL (70-99) Calcium Level 8.3 mg/dL (8.5-10.1) Magnesium Level 2.0 mg/dL (1.8-2.4) Assessment and Plan Assessmemt and Plan Problems Medical Problems: (1) Alcohol intoxication Status: Acute (2) Atrial fibrillation with RVR Status: Acute (3) Hypokalemia Status: Acute Comment Review of Relevant I have reviewed the following items patti (where applicable) has been applied. Labs Laboratory Tests Test 08/03/19 06:45 08/04/19 04:30 White Blood Count 6.5 x10^3/uL (4.0-11.0) Red Blood Count 4.78 x10^6/uL (4.30-5.70) Hemoglobin 14.8 g/dL (13.0-17.5) Hematocrit 43.1 % (39.0-53.0) Mean Corpuscular Volume 90 fL (79-100) Mean Corpuscular Hemoglobin 31 pg (25-35) Mean Corpuscular Hemoglobin Concent 34 g/dL (31-37) Red Cell Distribution Width 14.2 % (11.5-14.5) Platelet Count 70 x10^3/uL (140-400) Neutrophils (%) (Auto) 59 % (31-73) Lymphocytes (%) (Auto) 28 % (24-48) Monocytes (%) (Auto) 8 % (0-9) Eosinophils (%) (Auto) 4 % (0-3) Basophils (%) (Auto) 1 % (0-3) Neutrophils # (Auto) 3.8 x10^3/uL (1.8-7.7) Lymphocytes # (Auto) 1.8 x10^3/uL (1.0-4.8) Monocytes # (Auto) 0.5 x10^3/uL (0.0-1.1) Eosinophils # (Auto) 0.2 x10^3/uL (0.0-0.7) Basophils # (Auto) 0.1 x10^3/uL (0.0-0.2) Sodium Level 137 mmol/L (136-145) 136 mmol/L (136-145) Potassium Level 3.4 mmol/L (3.5-5.1) 3.8 mmol/L (3.5-5.1) Chloride Level 99 mmol/L (98-107) 101 mmol/L (98-107) Carbon Dioxide Level 30 mmol/L (21-32) 26 mmol/L (21-32) Anion Gap 8 (6-14) 9 (6-14) Blood Urea Nitrogen 4 mg/dL (8-26) 6 mg/dL (8-26) Creatinine 0.7 mg/dL (0.7-1.3) 0.9 mg/dL (0.7-1.3) Estimated GFR (Cockcroft-Gault) 114.3 85.5 BUN/Creatinine Ratio 6 (6-20) Glucose Level 121 mg/dL (70-99) 104 mg/dL (70-99) Calcium Level 8.1 mg/dL (8.5-10.1) 8.3 mg/dL (8.5-10.1) Magnesium Level 1.2 mg/dL (1.8-2.4) 2.0 mg/dL (1.8-2.4) Total Bilirubin 1.2 mg/dL (0.2-1.0) Aspartate Amino Transf (AST/SGOT) 35 U/L (15-37) Alanine Aminotransferase (ALT/SGPT) 30 U/L (16-63) Alkaline Phosphatase 100 U/L (46-116) Total Protein 7.0 g/dL (6.4-8.2) Albumin 3.1 g/dL (3.4-5.0) Albumin/Globulin Ratio 0.8 (1.0-1.7) Triglycerides Level 109 mg/dL (0-150) Cholesterol Level 154 mg/dL (0-200) LDL Cholesterol, Calculated 48 mg/dL (0-100) VLDL Cholesterol, Calculated 22 mg/dL (0-40) Non-HDL Cholesterol Calculated 70 mg/dL (0-129) HDL Cholesterol 84 mg/dL (40-60) Cholesterol/HDL Ratio 1.8 Laboratory Tests Test 08/04/19 04:30 Sodium Level 136 mmol/L (136-145) Potassium Level 3.8 mmol/L (3.5-5.1) Chloride Level 101 mmol/L (98-107) Carbon Dioxide Level 26 mmol/L (21-32) Anion Gap 9 (6-14) Blood Urea Nitrogen 6 mg/dL (8-26) Creatinine 0.9 mg/dL (0.7-1.3) Estimated GFR (Cockcroft-Gault) 85.5 Glucose Level 104 mg/dL (70-99) Calcium Level 8.3 mg/dL (8.5-10.1) Magnesium Level 2.0 mg/dL (1.8-2.4) Medications Current Medications Sodium Chloride 1,000 ml @ 1,000 mls/hr 1X ONCE IV Last administered on 08/01/19at 17:15; Start 08/01/19 at 17:15; Stop 08/01/19 at 18:14; Status DC Lorazepam (Ativan Inj) 1 mg 1X ONCE IVP Last administered on 08/01/19at 18:31; Start 08/01/19 at 18:00; Stop 08/01/19 at 18:01; Status DC Calcium Chloride (Calcium Chloride) 1,000 mg 1X ONCE IV Last administered on 08/01/19at 18:31; Start 08/01/19 at 18:30; Stop 08/01/19 at 18:31; Status DC Potassium Chloride (Klor-Con) 80 meq 1X ONCE PO Last administered on 08/01/19at 18:32; Start 08/01/19 at 18:30; Stop 08/01/19 at 18:31; Status DC Diltiazem HCl (Cardizem Iv Push) 20 mg 1X ONCE IVP Last administered on 08/01/19at 18:31; Start 08/01/19 at 18:30; Stop 08/01/19 at 18:31; Status DC Diltiazem HCl 125 mg/Sodium Chloride 125 ml @ 5 mls/hr CONT PRN IV SEE I/O R ECORD Last administered on 08/02/19at 22:55; Start 08/01/19 at 18:30; Stop 08/03/19 at 15:23; Status DC Ondansetron HCl (Zofran) 4 mg PRN Q8HRS PRN IV NAUSEA/VOMITING; Start 08/01/19 at 18:30; Stop 08/02/19 at 18:29; Status UNV Multivitamins 10 ml/Thiamine HCl 100 mg/Folic Acid 1 mg/Sodium Chloride 1,011.2 ml @ 1,000.088 mls/hr 1X ONCE IV Last administered on 08/01/19at 19:00; Start 08/01/19 at 19:00; Stop 08/01/19 at 20:00; Status DC Ondansetron HCl (Zofran) 4 mg PRN Q4HRS PRN IV NAUSEA/VOMITING Last adminis tered on 08/02/19at 16:10; Start 08/01/19 at 18:30 Zolpidem Tartrate (Ambien) 5 mg PRN QHS PRN PO INSOMNIA Last administered on 08/02/19at 22:58; Start 08/01/19 at 18:30 Acetaminophen (Tylenol) 650 mg PRN Q4HRS PRN PO TEMP OVER 100.4F OR MILD PAIN; Start 08/01/19 at 18:30 Docusate Sodium (Colace) 100 mg PRN BID PRN PO HARD STOOLS; Start 08/01/19 at 18:30 Albuterol Sulfate (Ventolin Neb Soln) 2.5 mg PRN Q4HRS PRN NEB SHORTNESS OF BREATH; Start 08/01/19 at 18:30 Guaifenesin (Robitussin) 200 mg PRN Q4HRS PRN PO COUGH; Start 08/01/19 at 18:30 Lorazepam (Ativan) 0.5 mg PRN Q4HRS PRN PO ANXIETY / AGITATION Last administered on 08/03/19at 20:31; Start 08/01/19 at 18:30 Enoxaparin Sodium (Lovenox 60mg Syringe) 60 mg Q12HR SQ ; Start 08/01/19 at 21:00; Status Cancel Multivitamins 10 ml/Thiamine HCl 100 mg/Folic Acid 1 mg/Sodium Chloride 1,011.2 ml @ 100 mls/ hr DAILY IV Last administered on 08/03/19at 09:00; Start 08/02/19 at 09:00; Stop 08/06/19 at 19:07 Chlordiazepoxide (Librium) 50 mg PRN Q1HR PRN PO For CIWA 8-14 Last ad ministered on 08/04/19at 08:44; Start 08/01/19 at 18:30 Chlordiazepoxide (Librium) 100 mg PRN Q1HR PRN PO For CIWA 15 or greater; Start 08/01/19 at 18:30 Clonidine HCl (Catapres) 0.1 mg PRN Q1HR PRN PO SBP > 180 or DBP > 100, MRX3; Start 08/01/19 at 18:30 Lorazepam (Ativan Inj) 2 mg PRN Q15MIN PRN IV SEE COMMENTS; Start 08/01/19 at 18:30; Stop 08/01/19 at 19:27; Status DC Diltiazem HCl 125 mg/Sodium Chloride 125 ml @ 5 mls/hr CONT PRN IV SEE I/O RECORD; Start 08/01/19 at 18:30; Status UNV Enoxaparin Sodium (Lovenox 40mg Syringe) 40 mg Q24H SQ Last administered on 08/03/19 20:32; Start 08/01/19 at 21:00 Hydrocortisone (Cortaid) 1 neftaly TID TP Last administered on 08/04/19 08:45; Start 08/02/19 at 09:00 Fentanyl Citrate (Fentanyl 2ml Vial) 50 mcg PRN Q3HRS PRN IVP SEVERE PAIN 7-10 Last administered on 08/02/19 08:33; Start 08/01/19 at 21:45 Trazodone HCl (Desyrel) 50 mg PRN QHS PRN PO INSOMNIA Last administered on 08/03/19 22:20; Start 08/01/19 at 22:45 Carvedilol (Coreg) 6.25 mg BIDWMEALS PO Last administered on 08/03/19 09:00; Start 08/02/19 at 12:00; Stop 08/03/19 at 13:27; Status DC Famotidine (Pepcid) 20 mg BID PO Last administered on 08/04/19 08:44; Start 08/02/19 at 12:00 Oxycodone/ Acetaminophen (Percocet 7.5/ 325) 1 tab PRN Q6HRS PRN PO MODERATE TO SEVERE PAIN Last administered on 08/04/19 08:44; Start 08/02/19 at 12:15 Potassium Chloride (Klor-Con) 20 meq 1X ONCE PO Last administered on 08/02/19 12:37; Start 08/02/19 at 12:30; Stop 08/02/19 at 12:31; Status DC Magnesium Oxide (Magnesium Oxide) 400 mg DAILY PO Last administered on 08/04/19 08:44; Start 08/02/19 at 12:30 Aspirin (Ecotrin) 81 mg DAILY PO Last administered on 08/04/19 08:44; Start 08/02/19 at 13:30 Metoprolol Succinate (Toprol Xl) 50 mg DAILY PO Last administered on 08/04/19at 08:43; Start 08/03/19 at 13:30 Magnesium Sulfate 50 ml @ 25 mls/hr 1X ONCE IV Last administered on 08/03/19at 15:37; Start 08/03/19 at 15:15; Stop 08/03/19 at 17:14; Status DC Lisinopril (Prinivil) 5 mg DAILY PO Last administered on 08/04/19at 08:43; Start 08/04/19 at 09:00 Potassium Chloride (Klor-Con) 40 meq 1X ONCE PO Last administered on 08/03/19at 17:21; Start 08/03/19 at 16:00; Stop 08/03/19 at 16:01; Status DC Magnesium Sulfate 100 ml @ 25 mls/hr 1X ONCE IV Last administered on 08/03/19at 17:20; Start 08/03/19 at 18:00; Stop 08/03/19 at 21:59; Status DC Active Scripts Active Reported Aspirin Ec (Aspirin) 81 Mg Tablet.dr 1 Tab PO DAILY Percocet 7.5-325 Mg Tablet (Oxycodone/Acetaminophen) 1 Each Tablet 1 Tab PO PRN Q6HRS PRN Pepcid (Famotidine) 20 Mg Tablet 20 Mg PO BID Coreg (Carvedilol) 6.25 Mg Tablet 6.25 Mg PO BIDWMEALS Vitals/I & O Vital Sign - Last 24 Hours 08/03/19 08/03/19 08/03/19 08/03/19 11:00 13:42 15:00 15:40 Temp 98.2 97.7 98.2 97.7 Pulse 74 74 72 Resp 18 18 B/P (MAP) 133/83 (100) 142/85 128/78 (95) Pulse Ox 93 94 O2 Delivery Room Air Room Air Room Air 08/03/19 08/03/19 08/03/19 08/03/19 19:00 20:00 22:20 23:04 Temp 98.0 97.8 98.0 97.8 Pulse 78 81 Resp 22 19 B/P (MAP) 132/79 (96) 176/97 (123) Pulse Ox 95 95 91 O2 Delivery Room Air Room Air Room Air Room Air 08/03/19 08/04/19 08/04/19 08/04/19 23:20 03:02 07:00 07:39 Temp 97.7 97.8 97.7 97.8 Pulse 74 78 Resp 18 18 B/P (MAP) 125/63 (83) 129/82 (98) Pulse Ox 91 93 97 O2 Delivery Room Air Room Air Room Air Room Air 08/04/19 08/04/19 08/04/19 08/04/19 08:43 08:43 08:44 09:44 Pulse 78 78 B/P (MAP) 129/82 129/82 O2 Delivery Room Air Room Air Intake and Output 08/03/19 08/03/19 08/04/19 15:00 23:00 07:00 Intake Total 720 ml 2020 ml 100 ml Output Total 1050 ml 850 ml Balance -330 ml 1170 ml 100 ml PERRY DAVIS MD Aug 04, 2019 10:18
--- NOTE | 2019-08-04 10:33 | PDOC ---
CARDIO Progress Notes Date and Time Date of Service 08/04/19 Time of Evaluation 1030 Subjective Subjective: Other (drowsy. No chest pain ) Vitals Vitals Vital Signs Date Time Temp Pulse Resp B/P (MAP) Pulse Ox O2 Delivery O2 Flow Rate FiO2 08/04/19 09:44 Room Air 08/04/19 08:43 78 129/82 08/04/19 07:00 97.8 18 97 97.8 Weight Weight [ ] Input and Output Intake and Output Intake and Output 08/04/19 07:00 Intake Total 2840 ml Output Total 1900 ml Balance 940 ml Intake Oral 1640 ml IV Total 1200 ml Output Urine Total 1900 ml Laboratory Labs Laboratory Tests Test 08/04/19 04:30 Sodium Level 136 mmol/L (136-145) Potassium Level 3.8 mmol/L (3.5-5.1) Chloride Level 101 mmol/L (98-107) Carbon Dioxide Level 26 mmol/L (21-32) Anion Gap 9 (6-14) Blood Urea Nitrogen 6 mg/dL (8-26) Creatinine 0.9 mg/dL (0.7-1.3) Estimated GFR (Cockcroft-Gault) 85.5 Glucose Level 104 mg/dL (70-99) Calcium Level 8.3 mg/dL (8.5-10.1) Magnesium Level 2.0 mg/dL (1.8-2.4) Physical Exam HEENT: Neck Supple W Full Motion Chest: Symmetric LUNGS: Clear to Auscultation Heart: S1S2, RRR Abdomen: Soft N/T Extremities: Other (trace bilateral LE edema) Neurology: alert, confused, other (drowsy) Assessment Assessment 1. ETOH abuse, intoxication. now confused 2. PAFIB; with RVR upon arrival. Follows with [facility]'s cardiology, Dr. Doshi. Reports recent echocardiogram and angiogram without intervention. Converted back to SR and has been maintaining 3. Chronic presumed systolic CHF; appears compensated 4. Hypertension; controlled 5. Hyperlipidemia; LDL 48 6. Hypokalemia, hypomagnesemia; replaced 7. H/o CVA 8. Depression, anxiety 9. Chronic pain associated with DDD Recommendations Toprol for rate control. ASA therapy. Reports he was previously on OAC, but this has been discontinued. Probable poor candidate due to ETOH abuse. Will defer to primary adding machine mechanic. ACEi for HF optimization Awaiting records from [facility] Withdrawal as per PCP Supportive care Justicifation of Admission Dx: Justifications for Admission: Justification of Admission Dx: Comment: (atrial fibrillation RVR) RAMILA KEYES APRN Aug 04, 2019 10:33
[2019-08-04 11:00] VITALS: BP 119/70
[2019-08-04 15:00] VITALS: BP 128/77
[2019-08-04 19:31] VITALS: BP 147/72
[2019-08-04] MEDS: ENOXAPARIN 40 MG/0.4 ML SYRINGE. SQ SCH (20:15)
[2019-08-04] MEDS: HYDROCORTISONE 1% TOPICAL OINTMENT 30GM TUBE. TP SCH (21:13)
[2019-08-04] MEDS: traZODone 50 MG TABLET. PO PRN (21:16)
[2019-08-04 22:40] VITALS: BP 141/70
[2019-08-05] MEDS: oxyCODONE/APAP 7.5/325 1 TAB TABLET PO PRN ×2 (00:05→19:43)
[2019-08-05] MEDS: chlordiazePOXIDE HCL 25 MG CAPSULE PO PRN (02:42)
[2019-08-05 02:43] VITALS: BP 116/63
[2019-08-05 06:35] VITALS: BP 113/77
[2019-08-05] MEDS: MULTIVIT INFUSN,ADULT 4,VIT K 10 ML, THIAMINE INJ 100 MG, FOLIC ACID INJ 1 MG in IV NOR... IV SCH (07:15)
--- NOTE | 2019-08-05 08:04 | PDOC ---
PROGRESS NOTES Chief Complaint Chief Complaint A/P: Atrial fibrillation with RVR. Probably aggravated by the effects of alcohol Acute toxic encephalopathy sunburn Hypokalemia Hypomagnesemia Weakness Hyperglycemia of no clinical significance Acute alcohol intoxication History of CAD currently asymptomatic Housing insecure FEN - Cardiac diet PPX - heparin FULL CODE Dispo - cont inpatient History of Present Illness History of Present Illness Mr Retana is a 64yo M w/ PMHX Afib, CAD, CHF who was found outside of a liquor store asleep and was brought by EMS after a concerned citizen decided to call the ambulance. He was evaluated in the ED and found to be acutely intoxicated, he developed rapid ventricular response of his underlying Atrial fibrillation. ETOH was 384 on 08/01/2019 on admission He denies chest pain palpitations no shortness of breath, no nausea vomiting or diarrhea. He denies headache blurred vision or neurological deficits. Plan of care discussed in detail. 08/02: Still very weak today. K 3.4, Mg 1.2. He is currently homeless, but is willing to find sober living. He is worried about SNF as he feels he lost most his money last time he was placed in SNF. 08/03: He is a bit more confused now, trying to leave the hospital. Responsive to redirection and ativan. This morning he thinks he has only been in the hospital 1 day. K3.8, heart rate controlled. 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 Vitals Vitals Vital Signs Date Time Temp Pulse Resp B/P (MAP) Pulse Ox O2 Delivery O2 Flow Rate FiO2 08/05/19 07:40 95 Room Air 08/05/19 06:35 97.8 75 18 113/77 (89) 97.8 Physical Exam General: Alert, Oriented X3, Cooperative Heart: Other (Irregularly irregular) Lungs: Wheezing Abdomen: Normal bowel sounds, Soft Extremities: No clubbing, No cyanosis Skin: No rashes, No breakdown Assessment and Plan Assessmemt and Plan Problems Medical Problems: (1) Alcohol intoxication Status: Acute (2) Atrial fibrillation with RVR Status: Acute (3) Hypokalemia Status: Acute Comment Review of Relevant I have reviewed the following items patti (where applicable) has been applied. Labs Laboratory Tests Test 08/04/19 04:30 Sodium Level 136 mmol/L (136-145) Potassium Level 3.8 mmol/L (3.5-5.1) Chloride Level 101 mmol/L (98-107) Carbon Dioxide Level 26 mmol/L (21-32) Anion Gap 9 (6-14) Blood Urea Nitrogen 6 mg/dL (8-26) Creatinine 0.9 mg/dL (0.7-1.3) Estimated GFR (Cockcroft-Gault) 85.5 Glucose Level 104 mg/dL (70-99) Calcium Level 8.3 mg/dL (8.5-10.1) Magnesium Level 2.0 mg/dL (1.8-2.4) Medications Current Medications Sodium Chloride 1,000 ml @ 1,000 mls/hr 1X ONCE IV Last administered on at 17:15; Start 08/01/19 at 17:15; Stop 08/01/19 at 18:14; Status DC Lorazepam (Ativan Inj) 1 mg 1X ONCE IVP Last administered on 08/01/19at 18:31; Start 08/01/19 at 18:00; Stop 08/01/19 at 18:01; Status DC Calcium Chloride (Calcium Chloride) 1,000 mg 1X ONCE IV Last administered on 08/01/19at 18:31; Start 08/01/19 at 18:30; Stop 08/01/19 at 18:31; Status DC Potassium Chloride (Klor-Con) 80 meq 1X ONCE PO Last administered on 08/01/19at 18:32; Start 08/01/19 at 18:30; Stop 08/01/19 at 18:31; Status DC Diltiazem HCl (Cardizem Iv Push) 20 mg 1X ONCE IVP Last administered on 08/01/19at 18:31; Start 08/01/19 at 18:30; Stop 08/01/19 at 18:31; Status DC Diltiazem HCl 125 mg/Sodium Chloride 125 ml @ 5 mls/hr CONT PRN IV SEE I/O RECORD Last administered on 08/02/19at 22:55; Start 08/01/19 at 18:30; Stop 08/03/19 at 15:23; Status DC Ondansetron HCl (Zofran) 4 mg PRN Q8HRS PRN IV NAUSEA/VOMITING; Start 08/01/19 at 18:30; Stop 08/02/19 at 18:29; Status UNV Multivitamins 10 ml/Thiamine HCl 100 mg/Folic Acid 1 mg/Sodium Chloride 1,011.2 ml @ 1,000.088 mls/hr 1X ONCE IV Last administered on 08/01/19at 19:00; Start 08/01/19 at 19:00; Stop 08/01/19 at 20:00; Status DC Ondansetron HCl (Zofran) 4 mg PRN Q4HRS PRN IV NAUSEA/VOMITING Last administered on 08/02/19at 16:10; Start 08/01/19 at 18:30 Zolpidem Tartrate (Ambien) 5 mg PRN QHS PRN PO INSOMNIA Last administered on 08/02/19at 22:58; Start 08/01/19 at 18:30 Acetaminophen (Tylenol) 650 mg PRN Q4HRS PRN PO TEMP OVER 100.4F OR MILD PAIN; Start 08/01/19 at 18:30 Docusate Sodium (Colace) 100 mg PRN BID PRN PO HARD STOOLS; Start 08/01/19 at 18:30 Albuterol Sulfate (Ventolin Neb Soln) 2.5 mg PRN Q4HRS PRN NEB SHORTNESS OF BREATH; Start 08/01/19 at 18:30 Guaifenesin (Robitussin) 200 mg PRN Q4HRS PRN PO COUGH; Start 08/01/19 at 18:30 Lorazepam (Ativan) 0.5 mg PRN Q4HRS PRN PO ANXIETY / AGITATION Last administered on 08/03/19at 20:31; Start 08/01/19 at 18:30 Enoxaparin Sodium (Lovenox 60mg Syringe) 60 mg Q12HR SQ ; Start 08/01/19 at 21:00; Status Cancel Multivitamins 10 ml/Thiamine HCl 100 mg/Folic Acid 1 mg/Sodium Chloride 1,011.2 ml @ 100 mls/ hr DAILY IV Last administered on 08/04/19at 15:55; Start 08/02/19 at 09:00; Stop 08/06/19 at 19:07 Chlordiazepoxide (Librium) 50 mg PRN Q1HR PRN PO For CIWA 8-14 Last administered on 08/05/19at 02:42; Start 08/01/19 at 18:30 Chlordiazepoxide (Librium) 100 mg PRN Q1HR PRN PO For CIWA 15 or greater Last administered on 08/04/19at 15:13; Start 08/01/19 at 18:30 Clonidine HCl (Catapres) 0.1 mg PRN Q1HR PRN PO SBP > 180 or DBP > 100, MRX3; Start 08/01/19 at 18:30 Lorazepam (Ativan Inj) 2 mg PRN Q15MIN PRN IV SEE COMMENTS; Start 08/01/19 at 18:30; Stop 08/01/19 at 19:27; Status DC Diltiazem HCl 125 mg/Sodium Chloride 125 ml @ 5 mls/hr CONT PRN IV SEE I/O RECORD; Start 08/01/19 at 18:30; Status UNV Enoxaparin Sodium (Lovenox 40mg Syringe) 40 mg Q24H SQ Last administered on 08/04/19at 20:15; Start 08/01/19 at 21:00 Hydrocortisone (Cortaid) 1 neftaly TID TP Last administered on 08/04/19at 08:45; Start 08/02/19 at 09:00; Stop 08/04/19 at 20:33; Status DC Fentanyl Citrate (Fentanyl 2ml Vial) 50 mcg PRN Q3HRS PRN IVP SEVERE PAIN 7-10 Last administered on 08/02/19at 08:33; Start 08/01/19 at 21:45 Trazodone HCl (Desyrel) 50 mg PRN QHS PRN PO INSOMNIA- 1ST CHOICE Last administered on 08/04/19at 21:16; Start 08/01/19 at 22:45 Carvedilol (Coreg) 6.25 mg BIDWMEALS PO Last administered on 08/03/19at 09:00; Start 08/02/19 at 12:00; Stop 08/03/19 at 13:27; Status DC Famotidine (Pepcid) 20 mg BID PO Last administered on 08/04/19at 20:16; Start 08/02/19 at 12:00 Oxycodone/ Acetaminophen (Percocet 7.5/ 325) 1 tab PRN Q6HRS PRN PO MODERATE TO SEVERE PAIN Last administered on 08/05/19 00:05; Start 08/02/19 at 12:15 Potassium Chloride (Klor-Con) 20 meq 1X ONCE PO Last administered on 08/02/19at 12:37; Start 08/02/19 at 12:30; Stop 08/02/19 at 12:31; Status DC Magnesium Oxide (Magnesium Oxide) 400 mg DAILY PO Last administered on 08/04/19at 08:44; Start 08/02/19 at 12:30 Aspirin (Ecotrin) 81 mg DAILY PO Last administered on 08/04/19at 08:44; Start 08/02/19 at 13:30 Metoprolol Succinate (Toprol Xl) 50 mg DAILY PO Last administered on 08/04/19at 08:43; Start 08/03/19 at 13:30 Magnesium Sulfate 50 ml @ 25 mls/hr 1X ONCE IV Last administered on 08/03/19at 15:37; Start 08/03/19 at 15:15; Stop 08/03/19 at 17:14; Status DC Lisinopril (Prinivil) 5 mg DAILY PO Last administered on 08/04/19at 08:43; Start 08/04/19 at 09:00 Potassium Chloride (Klor-Con) 40 meq 1X ONCE PO Last administered on 08/03/19at 17:21; Start 08/03/19 at 16:00; Stop 08/03/19 at 16:01; Status DC Magnesium Sulfate 100 ml @ 25 mls/hr 1X ONCE IV Last administered on 08/03/19at 17:20; Start 08/03/19 at 18:00; Stop 08/03/19 at 21:59; Status DC Lorazepam (Ativan Inj) 4 mg 1X ONCE IM Last administered on 08/04/19at 10:32; Start 08/04/19 at 10:30; Stop 08/04/19 at 10:31; Status DC Hydrocortisone (Cortaid) 1 neftaly TID TP Last administered on 08/04/19at 21:13; Start 08/04/19 at 21:00 Active Scripts Active Reported Aspirin Ec (Aspirin) 81 Mg Tablet.dr 1 Tab PO DAILY Percocet 7.5-325 Mg Tablet (Oxycodone/Acetaminophen) 1 Each Tablet 1 Tab PO PRN Q6HRS PRN Pepcid (Famotidine) 20 Mg Tablet 20 Mg PO BID Coreg (Carvedilol) 6.25 Mg Tablet 6.25 Mg PO BIDWMEALS Vitals/I & O Vital Sign - Last 24 Hours 08/04/19 08/04/19 08/04/19 08/04/19 08:43 08:43 08:44 09:44 Pulse 78 78 B/P (MAP) 129/82 129/82 O2 Delivery Room Air Room Air 08/04/19 08/04/19 08/04/19 08/04/19 11:00 15:00 19:31 20:00 Temp 97.9 97.8 98.0 97.9 97.8 98.0 Pulse 71 68 72 Resp 18 18 18 B/P (MAP) 119/70 (86) 128/77 (94) 147/72 (97) Pulse Ox 99 94 94 O2 Delivery Room Air Room Air Room Air Room Air 08/04/19 08/05/19 08/05/19 08/05/19 22:40 00:05 01:05 02:43 Temp 97.9 98.2 97.9 98.2 Pulse 75 78 Resp 18 18 18 18 B/P (MAP) 141/70 (93) 116/63 (80) Pulse Ox 96 96 96 91 O2 Delivery Room Air Room Air Room Air Room Air 08/05/19 08/05/19 06:35 07:40 Temp 97.8 97.8 Pulse 75 Resp 18 B/P (MAP) 113/77 (89) Pulse Ox 95 95 O2 Delivery Room Air Room Air Intake and Output 08/04/19 08/04/19 08/05/19 15:00 23:00 07:00 Intake Total 240 ml 240 ml 1300 ml Output Total 200 ml Balance 240 ml 240 ml 1100 ml PERRY DAVIS MD Aug 05, 2019 08:04
[2019-08-05] MEDS: MULTIVITAMIN with MINERAL TABLET. PO SCH (09:09)
[2019-08-05] MEDS: POTASSIUM CHLORIDE 20 MEQ TABLET.ER. PO SCH (09:09)
[2019-08-05] MEDS: FAMOTIDINE 20 MG TABLET. PO SCH ×2 (09:09→19:42)
[2019-08-05] MEDS: THIAMINE 100 MG TABLET. PO SCH (09:09)
[2019-08-05] MEDS: HYDROCORTISONE 1% TOPICAL OINTMENT 30GM TUBE. TP SCH ×3 (09:09→19:43)
[2019-08-05] MEDS: MAGNESIUM OXIDE 400 MG TABLET PO SCH (09:09)
[2019-08-05] MEDS: ASPIRIN ENTERIC COATED 81 MG TABLET.DR. PO SCH (09:09)
[2019-08-05] MEDS: LISINOPRIL 5 MG TABLET. PO SCH (09:09)
[2019-08-05] MEDS: FOLIC ACID 1 MG TABLET. PO SCH (09:09)
[2019-08-05] MEDS: METOPROLOL SUCC 24HR ER 50 MG TAB.ER.24H. PO SCH (09:10)
--- NOTE | 2019-08-05 10:04 | PDOC ---
RAMILA KEYES PHARMACY INNOVATION ASSISTANT 08/05/19 1004: CARDIO Progress Notes Date and Time Date of Service 08/05/19 Time of Evaluation 1000 Subjective Subjective: No Chest Pain, No shortness of breath, No Palpitations, Other (drowsy. No chest pain ) Vitals Vitals Vital Signs Date Time Temp Pulse Resp B/P (MAP) Pulse Ox O2 Delivery O2 Flow Rate FiO2 08/05/19 09:10 75 113/77 08/05/19 07:40 95 Room Air 08/05/19 06:35 97.8 18 97.8 Weight Weight [ ] Input and Output Intake and Output Intake and Output 08/05/19 07:00 Intake Total 2480 ml Output Total 200 ml Balance 2280 ml Intake Oral 1780 ml IV Total 700 ml Output Urine Total 200 ml Physical Exam HEENT: Neck Supple W Full Motion Chest: Symmetric LUNGS: Clear to Auscultation Heart: S1S2, RRR Abdomen: Soft N/T Extremities: Other (trace bilateral LE edema) Neurology: alert, confused, other (drowsy) Assessment Assessment 1. ETOH intoxication with h/o abuse. 2. PAFIB; with RVR upon arrival. Follows with [facility]'s cardiology, Dr. Doshi. Converted back to SR and has been maintaining 3. CAD; cath last fall with non-obstructive CAD. Echo with preserved LV systolic function 4. Hypertension; controlled 5. Hyperlipidemia; LDL 48 6. Hypokalemia, hypomagnesemia; replaced 7. H/o CVA 8. Depression, anxiety 9. Chronic pain associated with DDD 10. Hepatitis C 11. H/o Alcohol related seizure Recommendations Toprol for rate control. ASA therapy. Previously on OAC, but this was discontinued due to recurrent, traumatic falls. Withdrawal as per PCP Supportive care Follow up with primary medical or surgical instrument maker, Dr. Doshi upon discharge. Records from [facility] Coronary angiogram 02/17/2019 - LM normal, 40-50% mid LAD lesion, 50% diagonal, mild LCx disease, moderate diffuse disease of RCA. Justicifation of Admission Dx: Justifications for Admission: Justification of Admission Dx: Comment: (atrial fibrillation RVR) BEV BUNDY MD 08/05/19 1625: CARDIO Progress Notes Assessment Assessment Patient seen and examined I agree with our nurse practitioners plan and assessment as above. ETOH intoxication with h/o abuse. Following withdrawal precautions. PAFIB; with RVR upon arrival. Follows with [facility] cardiology, Dr. Doshi. Converted back to SR and has been maintaining CAD; cath last fall with non-obstructive CAD. Echo with preserved LV systolic function Hypertension; controlled Hyperlipidemia H/o CVA Hepatitis C RAMILA KEYES APRN Aug 05, 2019 10:04 BEV BUNDY MD Aug 05, 2019 16:25
[2019-08-05 10:09] VITALS: BP 142/77
[2019-08-05] MEDS ORDERED: AMLO5TAB10 PO (10:51)
[2019-08-05] MEDS ORDERED: OMEP-346 PO (10:51)
[2019-08-05] MEDS ORDERED: NITR0.4T22 SL (10:51)
[2019-08-05] MEDS ORDERED: ACET500T68 PO (10:51)
[2019-08-05] MEDS ORDERED: MULT-114 PO (10:51)
[2019-08-05] MEDS ORDERED: HYDR-2761 PO (10:51)
[2019-08-05] MEDS ORDERED: MIRT15TA PO (10:51)
[2019-08-05] MEDS ORDERED: TRAZ-118 PO (10:51)
[2019-08-05] MEDS ORDERED: ATOR80TA72 PO (10:51)
[2019-08-05] MEDS ORDERED: HYDR50TA PO (10:51)
[2019-08-05] MEDS ORDERED: DOCU-109 PO (10:51)
[2019-08-05] MEDS ORDERED: ISOS30TA4 PO (10:51)
[2019-08-05] MEDS ORDERED: HYDR28OI6 TP (12:49)
[2019-08-05] MEDS ORDERED: METO50TA4 PO (12:49)
--- NOTE | 2019-08-05 12:55 | PDOC3 ---
Discharge Summary Visit Information Date of Admission: Aug 01, 2019 Date of Discharge: Aug 06, 2019 Admitting Diagnosis: Atrial fibrillation with RVR Final Diagnosis Problems Medical Problems: (1) Alcohol intoxication Status: Acute (2) Atrial fibrillation with RVR Status: Acute (3) Hypokalemia Status: Acute Brief Hospital Course Allergies Allergies Coded Allergies Type Severity Reaction Last Updated Verified Penicillins Allergy Unknown Unknown 08/03/19 Yes Vital Signs Vital Signs Date Time Temp Pulse Resp B/P (MAP) Pulse Ox O2 Delivery O2 Flow Rate FiO2 08/05/19 10:09 98.0 18 142/77 (98) 96 Room Air 98.0 08/05/19 09:10 75 Lab Results Laboratory Tests Test 08/04/19 04:30 Sodium Level 136 mmol/L (136-145) Potassium Level 3.8 mmol/L (3.5-5.1) Chloride Level 101 mmol/L (98-107) Carbon Dioxide Level 26 mmol/L (21-32) Anion Gap 9 (6-14) Blood Urea Nitrogen 6 mg/dL (8-26) Creatinine 0.9 mg/dL (0.7-1.3) Estimated GFR (Cockcroft-Gault) 85.5 Glucose Level 104 mg/dL (70-99) Calcium Level 8.3 mg/dL (8.5-10.1) Magnesium Level 2.0 mg/dL (1.8-2.4) Brief Hospital Course Mr Retana is a 64yo M w/ PMHX Afib, CAD, CHF who was found outside of a liquor store asleep and was brought by EMS after a concerned citizen decided to call the ambulance. He was evaluated in the ED and found to be acutely intoxicated, he developed rapid ventricular response of his underlying Atrial fibrillation. ETOH was 384 on 08/01/2019 on admission He denies chest pain palpitations no shortness of breath, no nausea vomiting or diarrhea. He denies headache blurred vision or neurological deficits. Plan of care discussed in detail. 08/02: Still very weak today. K 3.4, Mg 1.2. He is currently homeless, but is willing to find sober living. He is worried about SNF as he feels he lost most his money last time he was placed in SNF. 08/03: He is a bit more confused now, trying to leave the hospital. Responsive to redirection and ativan. This morning he thinks he has only been in the hospital 1 day. K3.8, heart rate controlled. 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 Consulted Cardiology. Problem list: Atrial fibrillation with RVR. Probably aggravated by the effects of alcohol Acute toxic encephalopathy sunburn Hypokalemia Hypomagnesemia Weakness Hyperglycemia of no clinical significance Acute alcohol intoxication History of CAD currently asymptomatic Housing insecure Greater than 30 minutes spent on d/c Discharge Information Condition at Discharge: Improved Follow Up: Weeks (1) Disposition/Orders: D/C to Home Scheduled Aspirin (Aspirin Ec) 81 Mg Tablet.dr, 1 TAB PO DAILY for heart prevention, #30 Ref 3 (Reported) Entered as Reported by: BHARAT RUFFIN on 08/02/19 1317 Last Taken: Unknown Dose on 08/01/19 Last Action: Continued on 08/02/191317 by BHARAT RUFFIN Atorvastatin Calcium (Atorvastatin Calcium) 80 Mg Tablet, 80 MG PO QHS for FOR HIGH CHOLESTEROL, (Reported) Entered as Reported by: DAXA WOMACK on 08/05/19 1051 Last Action: New Order on 08/05/191050 by DAXA WOMACK Docusate Sodium (Colace) 100 Mg Capsule, 1 CAP PO BID for constipation for 30 Days, #60 Ref 0 (Reported) Entered as Reported by: DAXA WOMACK on 08/05/19 105 Last Action: New Order on 08/05/191050 by DAXA WOMACK Hydrocortisone Acetate (Anti-Itch) 28 Gm Oint...g., 1 MEY TP TID for Rash for 10 Days, #20 Prescribed by: PERRY DAVIS MD on 08/05/19 1249 Hydroxyzine Hcl (Hydroxyzine Hcl) 50 Mg Tablet, 50 MG PO BID for unknown, (Reported) Entered as Reported by: DAXA WOMACK on 08/05/19 105 Last Action: New Order on 08/05/19 105 by DAXA WOMACK Isosorbide Mononitrate (Isosorbide Mononitrate Er) 30 Mg Tab.er.24h, 1 TAB PO DAILY for htn, #30 Ref 5 (Reported) Entered as Reported by: DAXA WOMACK on 08/05/191050 Last Action: New Order on 08/05/191050 by DAXA WOMACK Metoprolol Succinate (Toprol XL) 50 Mg Tab.er.24h, 50 MG PO DAILY for Afib for 30 Days, #30 Ref 5 Prescribed by: PERRY DAVIS MD on 08/05/19 1249 Mirtazapine (Remeron) 15 Mg Tablet, 7.5 MG PO HS for unknown, (Reported) Entered as Reported by: DAXA WOMACK on 08/05/191050 Last Action: New Order on 08/05/191050 by DAXA WOMACK Multivitamin With Minerals (Multivitamins With Minerals) 1 Each Tablet, 1 TAB PO DAILY for supplement for 30 Days, #30 Ref 0 (Reported) Entered as Reported by: DAXA WOMACK on 08/05/191050 Last Action: New Order on 08/05/191050 by DAXA WOMACK Omeprazole (Omeprazole) 20 Mg Tab.rap.dr, 20 MG PO BID for gerd, (Reported) Entered as Reported by: DAXA WOMACK on 08/05/191050 Last Action: New Order on 08/05/191050 by DAXA WOMACK Trazodone Hcl (Trazodone Hcl) 50 Mg Tablet, 1 TAB PO QHS for insomnia, #30 Ref 1 (Reported) Entered as Reported by: DAXA WOMACK on 08/05/191050 Last Action: New Order on 08/05/191050 by DAXA WOMACK Scheduled PRN Acetaminophen (Acetaminophen) 500 Mg Tablet, 1 TAB PO PRN Q6HRS PRN for pain or fever for 15 Days, #60 Ref 0 (Reported) Entered as Reported by: DAXA WOMACK on 08/05/191050 Last Action: New Order on 08/05/191050 by DAXA WOMACK Hydrocodone Bit/Acetaminophen (Hydrocodone-Apap 5-325 ) 1 Tab Tablet, 1 TAB PO PRN Q6HRS PRN for PAIN, Ref 0 (Reported) Entered as Reported by: DAXA WOMACK on 08/05/191050 Last Action: New Order on 08/05/191050 by DAXA WOMACK Nitroglycerin (NITROGLYCERIN SubLingual) 0.4 Mg Tab.subl, 0.4 MG SL PRN Q5MIN PRN for CHEST PAIN, (Reported) Entered as Reported by: DAXA WOMACK on 08/05/191050 Last Action: New Order on 08/05/191050 by DAXA WOMACK Discontinued Medications Amlodipine Besylate (Amlodipine Besylate) 5 Mg Tablet, 5 MG PO BID for HTN, (Reported) Entered as Reported by: DAXA WOMACK on 08/05/191050 Last Action: New Order on 08/05/191050 by DAXA WOMACK Carvedilol (Coreg ) 6.25 Mg Tablet, 6.25 MG PO BIDWMEALS for CARDIAC, (Reported) Entered as Reported by: Rajinder Beltrán on 08/02/19 0545 Last Action: Continued on 08/02/19 121 by JODI Crandallicifation of Admission Dx: Justifications for Admission: Justification of Admission Dx: Comment: (atrial fibrillation RVR) PERRY DAVIS MD Aug 05, 2019 12:55
[2019-08-05 14:21] VITALS: BP 142/84
[2019-08-05 19:30] VITALS: BP 144/91
[2019-08-05] MEDS: ENOXAPARIN 40 MG/0.4 ML SYRINGE. SQ SCH (19:42)
[2019-08-05] MEDS: LORazepam 0.5 MG TABLET PO PRN ×2 (19:43→23:45)
[2019-08-05] MEDS: traZODone 50 MG TABLET. PO PRN (19:43)
[2019-08-05 23:48] VITALS: BP 158/91
[2019-08-06] MEDS: oxyCODONE/APAP 7.5/325 1 TAB TABLET PO PRN (01:44)
[2019-08-06 07:00] VITALS: BP 128/73
--- NOTE | 2019-08-06 08:34 | PDOC ---
PROGRESS NOTES Chief Complaint Chief Complaint A/P: Atrial fibrillation with RVR. Probably aggravated by the effects of alcohol Acute toxic encephalopathy sunburn Hypokalemia Hypomagnesemia Weakness Hyperglycemia of no clinical significance Acute alcohol intoxication History of CAD currently asymptomatic Housing insecure FEN - Cardiac diet PPX - heparin FULL CODE Dispo - cont inpatient History of Present Illness History of Present Illness Mr Retana is a 64yo M w/ PMHX Afib, CAD, CHF who was found outside of a liquor store asleep and was brought by EMS after a concerned citizen decided to call the ambulance. He was evaluated in the ED and found to be acutely intoxicated, he developed rapid ventricular response of his underlying Atrial fibrillation. ETOH was 384 on 08/01/2019 on admission He denies chest pain palpitations no shortness of breath, no nausea vomiting or diarrhea. He denies headache blurred vision or neurological deficits. Plan of care discussed in detail. 08/02: Still very weak today. K 3.4, Mg 1.2. He is currently homeless, but is willing to find sober living. He is worried about SNF as he feels he lost most his money last time he was placed in SNF. 08/03: He is a bit more confused now, trying to leave the hospital. Responsive to redirection and ativan. 08/04: This morning he thinks he has only been in the hospital 1 day. K3.8, heart rate controlled. 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 Overnight no events. Heart rate is controlled. Ambulated well with PT, r ecommended walker, however he does not wish to take one with him. He wishes to get shower and get dressed and leave the hospital. No chest pain no shortness of breath. His primary concern is his security check. Vitals Vitals Vital Signs Date Time Temp Pulse Resp B/P (MAP) Pulse Ox O2 Delivery O2 Flow Rate FiO2 08/06/19 07:00 97.7 67 16 128/73 (91) 95 Room Air 97.7 Physical Exam General: Alert, Oriented X3, Cooperative Heart: Other (Irregularly irregular) Lungs: Wheezing Abdomen: Normal bowel sounds, Soft Extremities: No clubbing, No cyanosis Skin: No rashes, No breakdown Assessment and Plan Assessmemt and Plan Problems Medical Problems: (1) Alcohol intoxication Status: Acute (2) Atrial fibrillation with RVR Status: Acute (3) Hypokalemia Status: Acute Comment Review of Relevant I have reviewed the following items patti (where applicable) has been applied. Medications Current Medications Sodium Chloride 1,000 ml @ 1,000 mls/hr 1X ONCE IV Last administered on 08/01/19at 17:15; Start 08/01/19 at 17:15; Stop 08/01/19 at 18:14; Status DC Lorazepam (Ativan Inj) 1 mg 1X ONCE IVP Last administered on 08/01/19 18:31; Start 08/01/19 at 18:00; Stop 08/01/19 at 18:01; Status DC Calcium Chloride (Calcium Chloride) 1,000 mg 1X ONCE IV Last administered on 08/01/19at 18:31; Start 08/01/19 at 18:30; Stop 08/01/19 at 18:31; Status DC Potassium Chloride (Klor-Con) 80 meq 1X ONCE PO Last administered on 08/01/19at 18:32; Start 08/01/19 at 18:30; Stop 08/01/19 at 18:31; Status DC Diltiazem HCl (Cardizem Iv Push) 20 mg 1X ONCE IVP Last administered on 07/31at 18:31; Start 08/01/19 at 18:30; Stop 08/01/19 at 18:31; Status DC Diltiazem HCl 125 mg/Sodium Chloride 125 ml @ 5 mls/hr CONT PRN IV SEE I/O RECORD Last administered on 08/02/19at 22:55; Start 08/01/19 at 18:30; Stop 08/03/19 at 15:23; Status DC Ondansetron HCl (Zofran) 4 mg PRN Q8HRS PRN IV NAUSEA/VOMITING; Start 08/01/19 at 18:30; Stop 08/02/19 at 18:29; Status UNV Multivitamins 10 ml/Thiamine HCl 100 mg/Folic Acid 1 mg/Sodium Chloride 1,011.2 ml @ 1,000.088 mls/hr 1X ONCE IV Last administered on 08/01/19at 19:00; Start 08/01/19 at 19:00; Stop 08/01/19 at 20:00; Status DC Ondansetron HCl (Zofran) 4 mg PRN Q4HRS PRN IV NAUSEA/VOMITING Last administered on 08/02/19at 16:10; Start 08/01/19 at 18:30 Zolpidem Tartrate (Ambien) 5 mg PRN QHS PRN PO INSOMNIA Last administered on 08/02/19at 22:58; Start 08/01/19 at 18:30 Acetaminophen (Tylenol) 650 mg PRN Q4HRS PRN PO TEMP OVER 100.4F OR MILD PAIN; Start 08/01/19 at 18:30 Docusate Sodium (Colace) 100 mg PRN BID PRN PO HARD STOOLS; Start 08/01/19 at 18:30 Albuterol Sulfate (Ventolin Neb Soln) 2.5 mg PRN Q4HRS PRN NEB SHORTNESS OF BREATH; Start 08/01/19 at 18:30 Guaifenesin (Robitussin) 200 mg PRN Q4HRS PRN PO COUGH; Start 08/01/19 at 18:30 Lorazepam (Ativan) 0.5 mg PRN Q4HRS PRN PO ANXIETY / AGITATION Last administere d on 08/05/19at 23:45; Start 08/01/19 at 18:30 Enoxaparin Sodium (Lovenox 60mg Syringe) 60 mg Q12HR SQ ; Start 08/01/19 at 21:00; Status Cancel Multivitamins 10 ml/Thiamine HCl 100 mg/Folic Acid 1 mg/Sodium Chloride 1,011.2 ml @ 100 mls/ hr DAILY IV Last administered on 08/04/19at 15:55; Start 08/02/19 at 09:00; Stop 08/05/19 at 08:52; Status DC Chlordiazepoxide (Librium) 50 mg PRN Q1HR PRN PO For CIWA 8-14 Last administered on 08/05/19at 02:42; Start 08/01/19 at 18:30; Stop 08/05/19 at 08:04; Status DC Chlordiazepoxide (Librium) 100 mg PRN Q1HR PRN PO For CIWA 15 or greater Last administered on 08/04/19at 15:13; Start 08/01/19 at 18:30; Stop 08/05/19 at 08:04; Status DC Clonidine HCl (Catapres) 0.1 mg PRN Q1HR PRN PO SBP > 180 or DBP > 100, MRX3; Start 08/01/19 at 18:30 Lorazepam (Ativan Inj) 2 mg PRN Q15MIN PRN IV SEE COMMENTS; Start 08/01/19 at 18:30; Stop 08/01/19 at 19:27; Status DC Diltiazem HCl 125 mg/Sodium Chloride 125 ml @ 5 mls/hr CONT PRN IV SEE I/O RECORD; Start 08/01/19 at 18:30; Status UNV Enoxaparin Sodium (Lovenox 40mg Syringe) 40 mg Q24H SQ Last administered on 08/05/19at 19:42; Start 08/01/19 at 21:00 Hydrocortisone (Cortaid) 1 adrian TID TP Last administered on 08/04/19 08:45; Start 08/02/19 at 09:00; Stop 08/04/19 at 20:33; Status DC Fentanyl Citrate (Fentanyl 2ml Vial) 50 mcg PRN Q3HRS PRN IVP SEVERE PAIN 7-10 Last administered on 08/02/19 08:33; Start 08/01/19 at 21:45 Trazodone HCl (Desyrel) 50 mg PRN QHS PRN PO INSOMNIA- 1ST CHOICE Last administered on 08/05/19at 19:43; Start 08/01/19 at 22:45 Carvedilol (Coreg) 6.25 mg BIDWMEALS PO Last administered on 08/03/19 09:00; Start 08/02/19 at 12:00; Stop 08/03/19 at 13:27; Status DC Famotidine (Pepcid) 20 mg BID PO Last administered on 08/05/19 19:42; Start 08/02/19 at 12:00 Oxycodone/ Acetaminophen (Percocet 7.5/ 325) 1 tab PRN Q6HRS PRN PO MODERATE TO SEVERE PAIN Last administered on 08/06/19at 01:44; Start 08/02/19 at 12:15 Potassium Chloride (Klor-Con) 20 meq 1X ONCE PO Last administered on 6/7/20at 12:37; Start 08/02/19 at 12:30; Stop 08/02/19 at 12:31; Status DC Magnesium Oxide (Magnesium Oxide) 400 mg DAILY PO Last administered on 08/05/19at 09:09; Start 08/02/19 at 12:30 Aspirin (Ecotrin) 81 mg DAILY PO Last administered on 08/05/19at 09:09; Start 08/02/19 at 13:30 Metoprolol Succinate (Toprol Xl) 50 mg DAILY PO Last administered on 08/05/19at 09:10; Start 08/03/19 at 13:30 Magnesium Sulfate 50 ml @ 25 mls/hr 1X ONCE IV Last administered on 08/03/19at 15:37; Start 08/03/19 at 15:15; Stop 08/03/19 at 17:14; Status DC Lisinopril (Prinivil) 5 mg DAILY PO Last administered on 08/05/19at 09:09; Start 08/04/19 at 09:00 Potassium Chloride (Klor-Con) 40 meq 1X ONCE PO Last administered on 08/03/19 17:21; Start 08/03/19 at 16:00; Stop 08/03/19 at 16:01; Status DC Magnesium Sulfate 100 ml @ 25 mls/hr 1X ONCE IV Last administered on 08/03/19at 17:20; Start 08/03/19 at 18:00; Stop 08/03/19 at 21:59; Status DC Lorazepam (Ativan Inj) 4 mg 1X ONCE IM Last administered on 08/04/19at 10:32; Start 08/04/19 at 10:30; Stop 08/04/19 at 10:31; Status DC Hydrocortisone (Cortaid) 1 adrian TID TP Last administered on 08/05/19at 19:43; Start 08/04/19 at 21:00 Potassium Chloride (Klor-Con) 20 meq DAILYWBKFT PO Last administered on 08/05/19at 09:09; Start 08/05/19 at 08:15 Multivitamins (Thera M Plus) 1 tab DAILY PO Last administered on 08/05/19 09:09; Start 08/05/19 at 09:00 Folic Acid (Folic Acid) 1 mg DAILY PO Last administered on 08/05/19at 09:09; Start 08/05/19 at 09:00 Thiamine Mononitrate (Vitamin B-1) 100 mg DAILY PO Last administered on 08/05/19at 09:09; Start 08/05/19 at 09:00 Active Scripts Active Anti-Itch (Hydrocortisone Acetate) 28 Gm Oint...g. 1 Adrian TP TID 10 Days Toprol XL (Metoprolol Succinate) 50 Mg Tab.er.24h 50 Mg PO DAILY 30 Days Reported Trazodone Hcl 50 Mg Tablet 1 Tab PO QHS Omeprazole 20 Mg Tab.rap.dr 20 Mg PO BID NITROGLYCERIN SubLingual (Nitroglycerin) 0.4 Mg Tab.subl 0.4 Mg SL PRN Q5MIN PRN Multivitamins With Minerals (Multivitamin With Minerals) 1 Each Tablet 1 Tab PO DAILY 30 Days Remeron (Mirtazapine) 15 Mg Tablet 7.5 Mg PO HS Isosorbide Mononitrate Er (Isosorbide Mononitrate) 30 Mg Tab.er.24h 1 Tab PO DAILY Hydroxyzine Hcl 50 Mg Tablet 50 Mg PO BID Hydrocodone-Apap 5-325 (Hydrocodone Bit/Acetaminophen) 1 Tab Tablet 1 Tab PO PRN Q6HRS PRN Colace (Docusate Sodium) 100 Mg Capsule 1 Cap PO BID 30 Days Atorvastatin Calcium 80 Mg Tablet 80 Mg PO QHS Acetaminophen 500 Mg Tablet 1 Tab PO PRN Q6HRS PRN 15 Days Aspirin Ec (Aspirin) 81 Mg Tablet. 1 Tab PO DAILY Vitals/I & O Vital Sign - Last 24 Hours 08/05/19 08/05/19 08/05/19 08/05/19 09:09 09:10 10:09 14:21 Temp 98.0 98.0 Pulse 75 75 Resp 18 18 B/P (MAP) 113/77 113/77 142/77 (98) 142/84 (103) Pulse Ox 96 95 O2 Delivery Room Air Room Air 08/05/19 08/05/19 08/05/19 08/05/19 19:30 19:43 20:00 20:43 Temp 98.0 98.0 Pulse 75 Resp 18 18 18 B/P (MAP) 144/91 (108) Pulse Ox 95 95 95 O2 Delivery Room Air Room Air Room Air Room Air 08/05/19 08/06/19 08/06/19 08/06/19 23:48 01:44 02:44 03:30 Temp 98.0 98.0 Pulse 75 Resp 18 18 18 20 B/P (MAP) 158/91 (113) Pulse Ox 98 98 98 O2 Delivery Room Air Room Air Room Air 08/06/19 07:00 Temp 97.7 97.7 Pulse 67 Resp 16 B/P (MAP) 128/73 (91) Pulse Ox 95 O2 Delivery Room Air Intake and Output 08/05/19 08/05/19 08/06/19 15:00 23:00 07:00 Intake Total 480 ml 1200 ml 360 ml Balance 480 ml 1200 ml 360 ml PERRY DAVIS MD Aug 06, 2019 08:34
[2019-08-06] MEDS: ASPIRIN ENTERIC COATED 81 MG TABLET.DR. PO SCH (09:46)
[2019-08-06] MEDS: MULTIVITAMIN with MINERAL TABLET. PO SCH (09:46)
[2019-08-06] MEDS: THIAMINE 100 MG TABLET. PO SCH (09:46)
[2019-08-06] MEDS: FAMOTIDINE 20 MG TABLET. PO SCH (09:46)
[2019-08-06] MEDS: POTASSIUM CHLORIDE 20 MEQ TABLET.ER. PO SCH (09:47)
[2019-08-06] MEDS: FOLIC ACID 1 MG TABLET. PO SCH (09:47)
[2019-08-06] MEDS: METOPROLOL SUCC 24HR ER 50 MG TAB.ER.24H. PO SCH (09:47)
[2019-08-06] MEDS: MAGNESIUM OXIDE 400 MG TABLET PO SCH (09:47)
[2019-08-06] MEDS: LISINOPRIL 5 MG TABLET. PO SCH (09:48)
[2019-08-06] MEDS: HYDROCORTISONE 1% TOPICAL OINTMENT 30GM TUBE. TP SCH ×2 (09:48→14:00)
--- NOTE | 2019-08-06 10:51 | PDOC ---
RAMILA KEYES MANAGER LABOR RELATIONS 08/06/19 1051: CARDIO Progress Notes Date and Time Date of Service 08/06/19 Time of Evaluation 1030 Subjective Subjective: No Chest Pain, No shortness of breath, No Palpitations, Other (much more awake, alert this am. C/o neck, back, and left ankle pain, which is chronic in nature.) Vitals Vitals Vital Signs Date Time Temp Pulse Resp B/P (MAP) Pulse Ox O2 Delivery O2 Flow Rate FiO2 08/06/19 09:48 67 128/73 08/06/19 07:30 Room Air 08/06/19 07:00 97.7 16 95 97.7 Weight Weight [ ] Input and Output Intake and Output Intake and Output 08/06/19 07:00 Intake Total 2040 ml Balance 2040 ml Intake Oral 2040 ml # Voids 5 Physical Exam HEENT: Neck Supple W Full Motion Chest: Symmetric LUNGS: Clear to Auscultation Heart: S1S2, RRR (heart tones regular. Not on tele) Abdomen: Soft N/T Extremities: No Edema, Other (trace bilateral LE edema) Neurology: alert, oriented, follow commands, confused Assessment Assessment 1. ETOH intoxication with h/o abuse. 2. PAFIB; with RVR upon arrival. Follows with [facility] cardiology, Dr. Doshi. Converted back to SR. HR controlled per VS review. Not on tele 3. CAD; cath last fall with non-obstructive CAD. Echo with preserved LV systolic function 4. Hypertension; controlled 5. Hyperlipidemia; LDL 48 6. Hypokalemia, hypomagnesemia; replaced 7. H/o CVA 8. Depression, anxiety 9. Chronic pain associated with DDD 10. Hepatitis C 11. H/o Alcohol related seizure Recommendations Toprol for rate control. ASA therapy. Previously on OAC, but this was discontinued due to recurrent, traumatic falls. Supportive care Follow up with primary video journalist, Dr. Doshi upon discharge. Records from [facility] Coronary angiogram 02/17/2019 - LM normal, 40-50% mid LAD lesion, 50% diagonal, mild LCx disease, moderate diffuse disease of RCA. Justicifation of Admission Dx: Justifications for Admission: Justification of Admission Dx: Comment: (atrial fibrillation RVR) BEV BUNDY MD 08/06/19 1711: CARDIO Progress Notes Assessment Assessment Patient seen and examined Agree with our nurse practitioners assessment and plan. ETOH intoxication with h/o abuse. PAFIB; with RVR upon arrival. Follows with [facility] cardiology, Dr. Doshi. Converted back to SR. HR controlled per VS review. Continue Toprol. CAD; cath last fall with non-obstructive CAD. Echo with preserved LV systolic function Hypertension; controlled Hyperlipidemia; LDL 48 RAMILA KEYES APRN Aug 06, 2019 10:51 BEV BUNDY MD Aug 06, 2019 17:11
[2019-08-06 10:56] VITALS: BP 119/76
== END 2019-08-06 16:32 | disposition home or self-care (01) | DRG 308 ==
LOC: ER 16:35 → 2 NORTH 18:30
PROVIDERS: ADMIT Internal Medicine; ATTEND Internal Medicine
DX: I48.0 Paroxysmal atrial fibrillation (principal); G92 Toxic encephalopathy; I50.22 Chronic systolic (congestive) heart failure; F10.129 Alcohol abuse with intoxication, unspecified; B19.20 Unspecified viral hepatitis C without hepatic coma; E78.5 Hyperlipidemia, unspecified; E83.42 Hypomagnesemia; E87.6 Hypokalemia; F32.9 Major depressive disorder, single episode, unspecified; F41.9 Anxiety disorder, unspecified; G89.29 Other chronic pain; I11.0 Hypertensive heart disease with heart failure; G62.9 Polyneuropathy, unspecified; M19.90 Unspecified osteoarthritis, unspecified site; Y90.8 Blood alcohol level of 240 mg/100 ml or more; M25.572 Pain in left ankle and joints of left foot; R73.9 Hyperglycemia, unspecified; I25.10 Atherosclerotic heart disease of native coronary artery without angina pectoris; L55.9 Sunburn, unspecified; Z59.0 Homelessness; Z82.49 Family history of ischemic heart disease and other diseases of the circulatory system; Z86.73 Personal history of transient ischemic attack (TIA), and cerebral infarction without residual deficits; Z88.0 Allergy status to penicillin
CPT/HCPCS: 36415; 71045; 80048; 80053; 80061; 83690; 83735; 83880; 84439; 84443; 84480; 84484; 85025; 85610; 85730; 93005; 94760; 96361; 96365; 96375; 99291; G0480; J1650; J2060; J2405; J3010; J3411; J3475; J3490; J7030; 97110-GP; 97116-GP; G0378

== ENCOUNTER 2019-08-07 17:38 | Inpatient (IN) | payer MEDICAID ==
[~2019-08-07] VITALS: Ht 182.9 cm; Wt 89.7 kg
[~2019-08-07 17:38] MED LIST: ACET500T68 PO; AMLO5TAB10 PO; ASPI-612 PO; ATOR80TA72 PO; CARV6.25 PO; DOCU-109 PO; FAMO-63 PO; HYDR-2761 PO; HYDR28OI6 TP; HYDR50TA PO; ISOS30TA4 PO; METO50TA4 PO; MIRT15TA PO; MULT-114 PO; NITR0.4T22 SL; OMEP-346 PO; OXYC1TAB19 PO; TRAZ-118 PO
[2019-08-07] MEDS ORDERED: IV NORMAL SALINE 1000ML BAG 1,000 ML IV SCH (18:10)
[2019-08-07 18:21] LABS: BASO # 0.1 x10^3/uL (0.0-0.2); BASO % 1 % (0-3); EOS # 0.1 x10^3/uL (0.0-0.7); EOS % 1 % (0-3); HEMATOCRIT 42.2 % (39.0-53.0); HEMOGLOBIN 14.6 g/dL (13.0-17.5); LYMPH % 20 % (24-48); MEAN CORPUSCULAR HEMOGLOBIN 32 pg (25-35); MEAN CORPUSCULAR HGB CONC 35 g/dL (31-37); MEAN CORPUSCULAR VOLUME 92 fL (79-100); MONO # 1.2 x10^3/uL (0.0-1.1); MONO % 12 % (0-9); NEUT # 6.4 x10^3/uL (1.8-7.7); NEUT % 66 % (31-73); PLATELET COUNT 165 x10^3/uL (140-400); RED BLOOD COUNT 4.58 x10^6/uL (4.30-5.70); RED CELL DISTRIBUTION WIDTH 15.4 % (11.5-14.5); WHITE BLOOD COUNT 9.7 x10^3/uL (4.0-11.0)
--- NOTE | 2019-08-07 18:40 | PHYS DOC ---
Past Medical History Past Medical History: A-Fib, Arthritis, Hypertension Additional Past Medical Histor: DDD Past Surgical History: No Surgical History Smoking Status: Former Smoker Alcohol Use: Heavy General Adult EDM: Chief Complaint: TRAUMA ALERT HPI: HPI: Patient is a 64 year old male who presents after reportedly falling while he was at [employer]. By history, there may have been a loss of consciousness. Patient does not recall everything surrounding the events but nursing staff reports that patient had been drinking alcohol today. Patient states that he hurts everywhere in his head to his toes. He states his pain is severe. He does indicate that he has significant history of cervical spine as well as back problems. He does deny any chest pain or shortness of breath. Additional history is somewhat limited as patient is very poor historian. [] Review of Systems: Review of Systems: Constitutional: Denies fever or chills. [] Respiratory: Denies cough or shortness of breath. [] Cardiovascular: Denies chest pain or edema. [] GI: Denies abdominal pain, nausea, vomiting or diarrhea. [] Musculoskeletal: Positive neck and back pain. [] Integument: Positive laceration. [] Neurologic: Complains of headache without focal weakness or sensory changes. [] A full 10 point review of systems has been reviewed and is otherwise negative. Heart Score: Risk Factors: Risk Factors: DM, Current or recent (<one month) smoker, HTN, HLP, family history of CAD, obesity. Risk Scores: Score 0 - 3: 2.5% MACE over next 6 weeks - Discharge Home Score 4 - 6: 20.3% MACE over next 6 weeks - Admit for Clinical Observation Score 7 - 10: 72.7% MACE over next 6 weeks - Early Invasive Strategies Current Medications: Current Medications Medications (Trade) Dose Ordered Sig/Zander Start Time Stop Time Status Last Admin Dose Admin Sodium Chloride 1,000 ml @ 1,000 mls/hr Q1H 08/07/19 18:10 08/07/19 19:09 08/07/19 18:01 1,000 MLS/HR Allergies: Allergies: Allergies Coded Allergies Type Severity Reaction Last Updated Verified Penicillins Allergy Intermediate Unknown 08/07/19 Yes Physical Exam: PE: Constitutional: Well developed, well nourished, no acute distress, non-toxic appearance. [] HENT: Normocephalic, with approximately 2 cm laceration to the right forehead, just above the eyebrow. Margins are somewhat jagged but no active bleeding is noted, bilateral external ears normal, oropharynx moist, no oral exudates, nose normal. [] Eyes: PERRLA, EOMI, conjunctiva normal, no discharge. [] Neck: Cervical collar in place by nursing staff prior to my evaluation. [] Cardiovascular: Regular rate and rhythm [] Lungs & Thorax: Bilateral breath sounds clear to auscultation [] Abdomen: Bowel sounds normal, soft, no tenderness. [] Skin: Warm, dry, no erythema, no rash. [] Extremities: No tenderness, no cyanosis, no clubbing, ROM intact, no edema. [] Neurologic: Awake and alert, no focal deficits noted. [] Current Patient Data: Labs: Laboratory Tests Test 08/07/19 17:56 White Blood Count 9.7 x10^3/uL (4.0-11.0) Red Blood Count 4.58 x10^6/uL (4.30-5.70) Hemoglobin 14.6 g/dL (13.0-17.5) Hematocrit 42.2 % (39.0-53.0) Mean Corpuscular Volume 92 fL (79-100) Mean Corpuscular Hemoglobin 32 pg (25-35) Mean Corpuscular Hemoglobin Concent 35 g/dL (31-37) Red Cell Distribution Width 15.4 % (11.5-14.5) H Platelet Count 165 x10^3/uL (140-400) Neutrophils (%) (Auto) 66 % (31-73) Lymphocytes (%) (Auto) 20 % (24-48) L Monocytes (%) (Auto) 12 % (0-9) H Eosinophils (%) (Auto) 1 % (0-3) Basophils (%) (Auto) 1 % (0-3) Neutrophils # (Auto) 6.4 x10^3/uL (1.8-7.7) Lymphocytes # (Auto) 2.0 x10^3/uL (1.0-4.8) Monocytes # (Auto) 1.2 x10^3/uL (0.0-1.1) H Eosinophils # (Auto) 0.1 x10^3/uL (0.0-0.7) Basophils # (Auto) 0.1 x10^3/uL (0.0-0.2) Laboratory Tests 08/07/19 17:56 Vital Signs: Vital Signs Date Time Temp Pulse Resp B/P (MAP) Pulse Ox O2 Delivery O2 Flow Rate FiO2 08/07/19 18:11 82 97/53 (68) 94 Room Air 08/07/19 17:38 98.3 14 98.3 EKG: EKG: [] Radiology/Procedures: Radiology/Procedures: [] Impression: PROCEDURE: CT HEAD AND CERVICAL SPINE WO Exam: CT head, face and cervical spine INDICATION: Fall TECHNIQUE: Sequential axial images through the head, face and cervical spine were obtained without the administration of IV contrast. Comparisons: None FINDINGS: Head: No focal parenchymal lesion or hemorrhage is identified. There is no midline shift or sulcal effacement. No acute vascular territory infarction is identified. Wray-white distinction is preserved. The ventricular system is within normal limits without compression hydrocephalus. The basal cisterns are well maintained. Mild extra cranial soft tissue scalp contusion in the occipital region. Face: The visualized portions of the paranasal sinuses and mastoid air cells are well-pneumatized. No acute fractures. Globes and intraorbital contents are normal. Cervical spine: Vertebral body heights and alignment are well-maintained. Fracture to the cervical spine is not identified. Mild multilevel spondylotic change in cervical spine with degenerative disc disease with degenerative disc disease greatest at C4-C5, C5-C6 and C6-C7. Mild bilateral facet arthropathy is also noted. Visualized paraspinal soft tissues are unremarkable. IMPRESSION: 1. No acute intracranial abnormality. 2. Extra cranial soft tissue scalp contusion/laceration in the occipital region without underlying osseous abnormality. 3. Negative CT C-spine for acute traumatic injury. Exposure: One or more of the following in the visualized dose reduction techniques were utilized for this examination: 1. Automated exposure control 2. Adjustment of the MA and/or KV according to patient size Use of iterative of reconstructive technique Electronically signed by: Jadon Winston MD (08/07/2019 6:49 PM) [id number] DICTATED and SIGNED BY: JADON WINSTON MD DATE: 08/07/19 1849 Course & Med Decision Making: Course & Med Decision Making Pertinent Labs and Imaging studies reviewed. (See chart for details) Patient moved to room upon arrival was evaluated by ER medical staff and c- collar placed by nurse. An IV was established and blood work was drawn. Patient sent down for CT imaging of the head, cervical spine and maxillofacial. CTs returned unremarkable with no acute findings. C-collar was removed by myself. Patient's creatinine noted to be 2.2. Patient had been discharged home from hospital on August 03 and creatinine at that time had been 0.9. Patient's blood alcohol noted to be 101. Patient does indicate that he suffers from alcohol withdrawal seizures. Findings of work-up have been reviewed with patient and patient will be admitted under care of hospitalist service. Dragon Disclaimer: Dragon Disclaimer: This electronic medical record was generated, in whole or in part, using a voice recognition dictation system. Departure Departure Impression: Primary Impression: Acute kidney injury Additional Impressions: Dehydration Alcohol withdrawal Qualified Codes: F10.230 - Alcohol dependence with withdrawal, uncomplicated Fall Qualified Codes: W19.XXXA - Unspecified fall, initial encounter Hyperkalemia Closed head injury Qualified Codes: S09.90XA - Unspecified injury of head, initial encounter Forehead laceration Qualified Codes: S01.81XA - Laceration without foreign body of other part of head, initial encounter Disposition: ADMITTED INPATIENT Admitting Physician: APRYL Condition: IMPROVED Referrals: UNKNOWN PCP NAME (PCP) Justicifation of Admission Dx: Justifications for Admission: Justification of Admission Dx: Yes ALESIA WINTER Jr. DO Aug 07, 2019 18:40
--- NOTE | 2019-08-07 18:52 | RAD ---
Exam: CT head, face and cervical spine INDICATION: Fall TECHNIQUE: Sequential axial images through the head, face and cervical spine were obtained without the administration of IV contrast. Comparisons: None FINDINGS: Head: No focal parenchymal lesion or hemorrhage is identified. There is no midline shift or sulcal effacement. No acute vascular territory infarction is identified. Wray-white distinction is preserved. The ventricular system is within normal limits without compression hydrocephalus. The basal cisterns are well maintained. Mild extra cranial soft tissue scalp contusion in the occipital region. Face: The visualized portions of the paranasal sinuses and mastoid air cells are well-pneumatized. No acute fractures. Globes and intraorbital contents are normal. Cervical spine: Vertebral body heights and alignment are well-maintained. Fracture to the cervical spine is not identified. Mild multilevel spondylotic change in cervical spine with degenerative disc disease with degenerative disc disease greatest at C4-C5, C5-C6 and C6-C7. Mild bilateral facet arthropathy is also noted. Visualized paraspinal soft tissues are unremarkable. IMPRESSION: 1. No acute intracranial abnormality. 2. Extra cranial soft tissue scalp contusion/laceration in the occipital region without underlying osseous abnormality. 3. Negative CT C-spine for acute traumatic injury. Exposure: One or more of the following in the visualized dose reduction techniques were utilized for this examination: 1. Automated exposure control 2. Adjustment of the MA and/or KV according to patient size Use of iterative of reconstructive technique Electronically signed by: Jadon Doe MD (08/07/2019 6:49 PM) [id number]
[2019-08-07 19:04] LABS: BILIRUBIN,URINE NEGATIVE (NEG); CLARITY,URINE CLEAR; COLOR,URINE YELLOW; NITRITE,URINE NEGATIVE (NEG); PROTEIN,URINE NEGATIVE (NEG-TRACE)
[2019-08-07 19:10] LABS: CREATININE 2.2 mg/dL (0.7-1.3); GFR 30.5; POTASSIUM 5.4 mmol/L (3.5-5.1)
[2019-08-07 19:11] LABS: AMPHETAMINE/METHAMPHETAMINE NEG (NEG); BARBITURATES NEG (NEG); BENZODIAZEPINES POS (NEG); CANNABINOIDS NEG (NEG); COCAINE NEG (NEG); METHADONE NEG (NEG); OPIATES NEG (NEG); PHENCYCLIDINE NEG (NEG)
[2019-08-07 19:13] LABS: BACTERIA,URINE 0 /HPF (0-FEW); RBC,URINE 0 /HPF (0-2)
[2019-08-07 19:16] LABS: ALBUMIN 3.6 g/dL (3.4-5.0); DIRECT BILIRUBIN 0.3 mg/dL (0.0-0.2); TOTAL BILIRUBIN 0.5 mg/dL (0.2-1.0); TOTAL PROTEIN 7.7 g/dL (6.4-8.2)
[2019-08-07] MEDS ORDERED: ONDANSETRON PF 4 MG/2 ML VIAL. IV PRN (20:00)
[2019-08-07] MEDS ORDERED: fentaNYL PF VIAL 100 MCG/2 ML VIAL IV PRN (20:00)
[2019-08-07] MEDS ORDERED: HYDROcodone/APAP 7.5/325MG 1 TAB TABLET PO ONE (21:30)
[2019-08-07] MEDS: IV NORMAL SALINE 1000ML BAG 1,000 ML IV SCH (21:32)
[2019-08-07] MEDS ORDERED: SODIUM POLYSTYRENE SULFON/SORB 15 GM/60 ML ORAL.SUSP PO ONE (21:45)
[2019-08-07] MEDS ORDERED: NEO/POLYMYX/DEXAMETH OPHTH SUSPENSION 5ML BOTTLE. OS ONE (21:45)
[2019-08-07 21:46] VITALS: BP 131/69
--- NOTE | 2019-08-07 22:49 | NUR ---
When filling out admission Alcohol scale, pt states he drank 3 days ago. He denied drinking today, and he declined to tell me how much he drank 3 days ago or how much he typically drinks when he does drink. The only answers he will give me is that he drank 3 days ago and that he is done drinking for good now. I encouraged him to answer questions truthfully as it will help us best know how to provide him with care. Pt was admitted to [facility] at 2115 by er bed. Pt arrived with the following belongings: Jeans, dana shirt, socks, belt, music CD player and sunglasses. He states he is missing a large green bag, a black bag and a flip phone cell phone that may have been left "in the [place]" where apparently he is residing due to homelessness. ER staff confirmed that the patient did not have any bags or a cell phone upon his arrival to the hospital, and they were not witnessed upon his arrival to the floor. ER staff talked with Rajinder up staff readiness officer on shift [facility], who stated ER contacted EMS, EMS states there were 2 individuals at the scene where patient was picked up and they had his belongings. These 2 individuals apparently told EMS they were the patient's friends and would return the belongings to the patient. Pt was relayed this information and verbalized understanding. Admission questions were answered to the best ability of the patient, although he is somewhat of a poor historian. High fall risk precautions were implemented and explained to the patient. Pt stated his reluctance to follow the high fall protocols and at one point even states "I am just going to turn the alarm off the bed and do whatever I want". Pt is alert and oriented x4, pupils equal round and reactive. I did education about why the high fall precautions were necessary, that they were for his safety so that he did not fall during his hospital stay. Pt verbalized understanding. Pt has multiple abraisons on the face, on bilat sides of the face, an open wound on the left elbow and a peeling healing sunburn on bilat arms and legs present on admission.
[2019-08-07 23:25] VITALS: BP 119/72
[2019-08-08] MEDS ORDERED: HALOPERIDOL LACTATE 5 MG/ML VIAL. IVP PRN (02:15)
[2019-08-08] MEDS ORDERED: traZODone 50 MG TABLET. PO SCH (02:15)
[2019-08-08] MEDS: LORazepam 1 MG TABLET PO PRN ×2 (02:45→17:13)
[2019-08-08] MEDS: MULTIVIT INFUSN,ADULT 4,VIT K 10 ML, THIAMINE INJ 100 MG, FOLIC ACID INJ 1 MG in IV NOR... IV SCH ×2 (02:45→09:28)
[2019-08-08 03:15] VITALS: BP 125/71
[2019-08-08 03:26] LABS: BASO # 0.1 x10^3/uL (0.0-0.2); BASO % 1 % (0-3); EOS # 0.1 x10^3/uL (0.0-0.7); EOS % 1 % (0-3); HEMATOCRIT 39.7 % (39.0-53.0); HEMOGLOBIN 13.6 g/dL (13.0-17.5); LYMPH # 1.9 x10^3/uL (1.0-4.8); LYMPH % 19 % (24-48); MEAN CORPUSCULAR HEMOGLOBIN 31 pg (25-35); MEAN CORPUSCULAR HGB CONC 34 g/dL (31-37); MEAN CORPUSCULAR VOLUME 92 fL (79-100); MONO # 2.3 x10^3/uL (0.0-1.1); MONO % 23 % (0-9); NEUT # 5.7 x10^3/uL (1.8-7.7); NEUT % 57 % (31-73); PLATELET COUNT 134 x10^3/uL (140-400); RED BLOOD COUNT 4.34 x10^6/uL (4.30-5.70); RED CELL DISTRIBUTION WIDTH 15.2 % (11.5-14.5)
[2019-08-08 03:32] LABS: CALCIUM 8.3 mg/dL (8.5-10.1); CREATININE 1.5 mg/dL (0.7-1.3); GFR 47.4; POTASSIUM 4.1 mmol/L (3.5-5.1)
[2019-08-08] MEDS: IV NORMAL SALINE 1000ML BAG 1,000 ML IV SCH ×2 (03:54→11:54)
[2019-08-08 07:00] VITALS: BP 139/81
[2019-08-08 07:21] LABS: % ATYL 1 % (0-0); % BANDS 3 % (0-9); % LYMPHS 17 % (24-48); % MONOS 17 % (0-10); % SEGS 62 % (35-66); PLT ESTIMATE ADEQUATE (ADEQUATE)
[2019-08-08 07:22] LABS: ANISOCYTOSIS SLIGHT
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
[2019-08-08] MEDS ORDERED: HYDROcodone/APAP 5/325MG 1 TAB TABLET PO PRN (08:45)
[2019-08-08] MEDS ORDERED: ACETAMINOPHEN 500 MG TABLET PO PRN (08:45)
[2019-08-08] MEDS ORDERED: ENOXAPARIN 30 MG/0.3 ML SYRINGE. SQ SCH (08:45)
[2019-08-08] MEDS ORDERED: ONDANSETRON PF 4 MG/2 ML VIAL. IV PRN (08:45)
[2019-08-08] MEDS ORDERED: NITROGLYCERIN SUBLINGUAL 0.4 MG BOTTLE OF 25. SL PRN (08:45)
[2019-08-08] MEDS ORDERED: MULTIVITAMIN with MINERAL TABLET. PO SCH (09:00)
[2019-08-08] MEDS: DOCUSATE SODIUM 100 MG CAPSULE. PO SCH ×2 (09:27→21:05)
[2019-08-08] MEDS: ISOSORBIDE MONONITRATE ER 30 MG TAB.ER.24H PO SCH (09:27)
[2019-08-08] MEDS: ASPIRIN ENTERIC COATED 81 MG TABLET.DR. PO SCH (09:27)
[2019-08-08] MEDS: METOPROLOL SUCC 24HR ER 50 MG TAB.ER.24H. PO SCH (09:28)
[2019-08-08] MEDS: PANTOPRAZOLE 40 MG TABLET.DR. PO SCH ×2 (09:28→21:05)
[2019-08-08 11:00] VITALS: BP 112/50
[2019-08-08] MEDS: ENOXAPARIN 40 MG/0.4 ML SYRINGE. SQ SCH (13:11)
[2019-08-08] MEDS: HYDROCORTISONE 1% TOPICAL OINTMENT 30GM TUBE. TP SCH ×2 (14:28→21:06)
[2019-08-08 15:00] VITALS: BP 98/53
[2019-08-08 19:25] VITALS: BP 108/63
[2019-08-08] MEDS: traZODone 50 MG TABLET. PO SCH (21:04)
[2019-08-08] MEDS: ATORVASTATIN CALCIUM 40 MG TABLET. PO SCH (21:05)
[2019-08-08] MEDS: MIRTAZAPINE 15 MG TABLET PO SCH (21:06)
[2019-08-08 22:40] VITALS: BP 119/74
[2019-08-09] MEDS: LORazepam 1 MG TABLET PO PRN ×3 (01:53→20:08)
[2019-08-09 07:00] VITALS: BP 131/78
[2019-08-09] MEDS: HYDROCORTISONE 1% TOPICAL OINTMENT 30GM TUBE. TP SCH ×3 (08:04→21:43)
[2019-08-09] MEDS: ISOSORBIDE MONONITRATE ER 30 MG TAB.ER.24H PO SCH (08:04)
[2019-08-09] MEDS: ASPIRIN ENTERIC COATED 81 MG TABLET.DR. PO SCH (08:04)
[2019-08-09] MEDS: DOCUSATE SODIUM 100 MG CAPSULE. PO SCH ×2 (08:05→20:08)
[2019-08-09] MEDS: PANTOPRAZOLE 40 MG TABLET.DR. PO SCH ×2 (08:05→20:08)
[2019-08-09] MEDS: METOPROLOL SUCC 24HR ER 50 MG TAB.ER.24H. PO SCH (08:05)
[2019-08-09] MEDS: ENOXAPARIN 40 MG/0.4 ML SYRINGE. SQ SCH (08:06)
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
[2019-08-09] MEDS ORDERED: traMADol 50 MG TABLET PO PRN (08:30)
[2019-08-09] MEDS: MULTIVIT INFUSN,ADULT 4,VIT K 10 ML, THIAMINE INJ 100 MG, FOLIC ACID INJ 1 MG in IV NOR... IV SCH (09:00)
[2019-08-09 09:52] LABS: ALBUMIN 2.8 g/dL (3.4-5.0); ALBUMIN/GLOBULIN RATIO 0.8 (1.0-1.7); CALCIUM 8.3 mg/dL (8.5-10.1); CREATININE 1.1 mg/dL (0.7-1.3); GFR 67.8; MAGNESIUM 1.9 mg/dL (1.8-2.4); POTASSIUM 3.5 mmol/L (3.5-5.1); TOTAL BILIRUBIN 0.4 mg/dL (0.2-1.0); TOTAL PROTEIN 6.4 g/dL (6.4-8.2)
[2019-08-09 11:00] VITALS: BP 108/63
[2019-08-09] MEDS ORDERED: POLYVINYL ALCOHOL 1.4% OPHTH SOLUTION 15ML BOTTLE. OU PRN (12:00)
[2019-08-09] MEDS ORDERED: POTASSIUM CHLORIDE 20 MEQ TABLET.ER. PO ONE (13:00)
[2019-08-09 15:00] VITALS: BP 150/87
[2019-08-09 19:15] VITALS: BP 158/94
[2019-08-09] MEDS: ATORVASTATIN CALCIUM 40 MG TABLET. PO SCH (20:08)
[2019-08-09] MEDS: MIRTAZAPINE 15 MG TABLET PO SCH (20:08)
[2019-08-09] MEDS: traZODone 50 MG TABLET. PO SCH (21:42)
[2019-08-09 23:00] VITALS: BP 145/93
[2019-08-10 04:28] LABS: CALCIUM 8.9 mg/dL (8.5-10.1); GFR 75.7; POTASSIUM 3.9 mmol/L (3.5-5.1)
[2019-08-10] MEDS: LORazepam 1 MG TABLET PO PRN ×2 (06:14→08:24)
[2019-08-10 07:03] VITALS: BP 149/88
[2019-08-10] MEDS: PANTOPRAZOLE 40 MG TABLET.DR. PO SCH (08:20)
[2019-08-10] MEDS: DOCUSATE SODIUM 100 MG CAPSULE. PO SCH (08:20)
[2019-08-10] MEDS: ASPIRIN ENTERIC COATED 81 MG TABLET.DR. PO SCH (08:20)
[2019-08-10] MEDS: ISOSORBIDE MONONITRATE ER 30 MG TAB.ER.24H PO SCH (08:20)
[2019-08-10] MEDS: HYDROCORTISONE 1% TOPICAL OINTMENT 30GM TUBE. TP SCH (08:21)
[2019-08-10] MEDS: METOPROLOL SUCC 24HR ER 50 MG TAB.ER.24H. PO SCH (08:21)
[2019-08-10] MEDS: MULTIVIT INFUSN,ADULT 4,VIT K 10 ML, THIAMINE INJ 100 MG, FOLIC ACID INJ 1 MG in IV NOR... IV SCH (09:00)
--- NOTE | 2019-08-10 09:47 | EKG ---
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
[2019-08-10 10:23] VITALS: BP 174/101
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
--- NOTE | 2019-08-10 13:35 | NUR ---
Discharge Note: THONY GRIGGS Discharge instructions and discharge home medications reviewed with Patient and a copy given. All questions have been answered and understanding verbalized. The following instructions and handouts were given: Alcohol intoxication and substance abuse. Discontinued iv line and catheter intact. Patient discharged to home with z-trip to [address], [place] [address] per patient request.
--- NOTE | 2019-08-10 16:40 | NUR ---
Wound Care: Pt dc home prior to wc eval.
[2019-08-12] MEDS ORDERED: MULTIVITAMIN with MINERAL TABLET. PO SCH (09:00)
== END 2019-08-10 16:45 | disposition home or self-care (01) | DRG 91 ==
LOC: ER 17:38 → 2 NORTH 20:25
PROVIDERS: ADMIT Internal Medicine; ATTEND Internal Medicine
DX: G92 Toxic encephalopathy (principal); N17.0 Acute kidney failure with tubular necrosis; F10.230 Alcohol dependence with withdrawal, uncomplicated; E86.0 Dehydration; E87.5 Hyperkalemia; F10.229 Alcohol dependence with intoxication, unspecified; F17.210 Nicotine dependence, cigarettes, uncomplicated; I11.0 Hypertensive heart disease with heart failure; I25.10 Atherosclerotic heart disease of native coronary artery without angina pectoris; I48.0 Paroxysmal atrial fibrillation; R73.9 Hyperglycemia, unspecified; I50.9 Heart failure, unspecified; S01.01XA Laceration without foreign body of scalp, initial encounter; S01.81XA Laceration without foreign body of other part of head, initial encounter; S51.012A Laceration without foreign body of left elbow, initial encounter; Z82.49 Family history of ischemic heart disease and other diseases of the circulatory system; Z86.73 Personal history of transient ischemic attack (TIA), and cerebral infarction without residual deficits; F32.9 Major depressive disorder, single episode, unspecified; F41.9 Anxiety disorder, unspecified; G62.9 Polyneuropathy, unspecified; M19.90 Unspecified osteoarthritis, unspecified site; Y90.8 Blood alcohol level of 240 mg/100 ml or more; W18.39XA Other fall on same level, initial encounter; Y93.89 Activity, other specified; Y92.89 Other specified places as the place of occurrence of the external cause; Y99.8 Other external cause status
CPT/HCPCS: 36415; 70450; 70486; 72125; 80048; 80053; 80076; 80307; 81001; 83735; 85007; 85025; 87086; 93005; 96361; 96374; 99285; G0480; J1630; J1650; J2060; J3010; J3411; J3490; J7030; G0378

== ENCOUNTER 2019-09-23 16:33 | Emergency (ER) | payer MEDICAID ==
[~2019-09-23] VITALS: Ht 182.9 cm; Wt 84.0 kg
--- NOTE | 2019-09-23 18:16 | PHYS DOC ---
Past Medical History Past Medical History: A-Fib, Alcoholism, Arthritis, Hypertension Additional Past Medical Histor: DDD Past Surgical History: No Surgical History Smoking Status: Never Smoker Alcohol Use: Heavy General Adult EDM: Chief Complaint: ALCOHOL INTOXICATION HPI: HPI: Patient is a 64 year old who was brought to the emergency department today by EMS stating that bystanders called when they seen him sleeping next to a bus st op. Patient has no complaints, states that he was drinking today, states he is homeless, states that he fell asleep by the bus stop. Patient denies any complaints and wishes to leave the emergency department. Patient does however state that he is hungry and would like some water to drink. Patient denies being around the COVID-19 virus, and denies any COVID-19 virus concerns. Denies homicidal or suicidal ideations. Review of Systems: Review of Systems: Constitutional: Denies fever or chills. Eyes: Denies change in visual acuity. HENT: Denies nasal congestion or sore throat. Respiratory: Denies cough or shortness of breath. Cardiovascular: Denies chest pain or edema. GI: Denies abdominal pain, nausea, vomiting, bloody stools or diarrhea. : Denies dysuria. Musculoskeletal: Denies back pain or joint pain. Integument: Denies rash. Neurologic: Denies headache, focal weakness or sensory changes. Endocrine: Denies polyuria or polydipsia. Lymphatic: Denies swollen glands. Psychiatric: Denies depression or anxiety. Denies homicidal or suicidal ideations. Heart Score: Risk Factors: Risk Factors: DM, Current or recent (<one month) smoker, HTN, HLP, family history of CAD, obesity. Risk Scores: Score 0 - 3: 2.5% MACE over next 6 weeks - Discharge Home Score 4 - 6: 20.3% MACE over next 6 weeks - Admit for Clinical Observation Score 7 - 10: 72.7% MACE over next 6 weeks - Early Invasive Strategies Allergies: Allergies: Allergies Coded Allergies Type Severity Reaction Last Updated Verified Penicillins Allergy Intermediate Unknown 08/07/19 Yes Physical Exam: PE: Constitutional: Well developed, well nourished, no acute distress, non-toxic appearance. HENT: Normocephalic, atraumatic, bilateral external ears normal, oropharynx moist, no oral exudates, nose normal. Eyes: PERRLA, EOMI, conjunctiva normal, no discharge. Neck: Normal range of motion, no tenderness, supple, no stridor. Cardiovascular:Heart rate regular rhythm, no murmur Lungs & Thorax: Bilateral breath sounds clear to auscultation Abdomen: Bowel sounds normal, soft, no tenderness, no masses, no pulsatile masses. Skin: Warm, dry, no erythema, no rash. Back: No tenderness, no CVA tenderness. Extremities: No tenderness, no cyanosis, no clubbing, ROM intact, no edema. Neurologic: Alert and oriented X 3, normal motor function, normal sensory function, no focal deficits noted. Psychologic: Affect normal, judgement normal, mood normal. Current Patient Data: Vital Signs: Vital Signs Date Time Temp Pulse Resp B/P (MAP) Pulse Ox O2 Delivery O2 Flow Rate FiO2 09/23/19 16:33 97.8 81 16 119/62 (81) 97 Room Air 97.8 EKG: EKG: [] Radiology/Procedures: Radiology/Procedures: [] Course & Med Decision Making: Course & Med Decision Making Pertinent Labs and Imaging studies reviewed. (See chart for details) 64-year-old patient brought to the emergency department today via EMS because he was sleeping next to a bus stop. Patient states that he has been drinking, denies any drug use. Patient states he is homeless. ED plan to let patient has something to eat status on for a period of time, let him drink some water. And discharge him when he is clinically sober. Patient gave verbal understanding of discharge instructions. Minnie Disclaimer: Minnie Disclaimer: This electronic medical record was generated, in whole or in part, using a voice recognition dictation system. Departure Departure Impression: Primary Impression: Alcoholism Additional Impression: Homelessness Disposition: HOME, SELF-CARE Condition: GOOD Referrals: UNKNOWN PCP NAME (PCP) Patient Instructions: Alcohol Problems Additional Instructions: Please try to get help to quit drinking, follow-up with your doctor soon. Justicifation of Admission Dx: Justifications for Admission: Justification of Admission Dx: N/A DEBORA BAEZ APRN Sep 23, 2019 18:16
[2019-09-23 18:18] LABS: BASO # 0.1 x10^3/uL (0.0-0.2); BASO % 2 % (0-3); EOS # 0.3 x10^3/uL (0.0-0.7); EOS % 5 % (0-3); HEMATOCRIT 37.9 % (39.0-53.0); HEMOGLOBIN 13.1 g/dL (13.0-17.5); LYMPH # 2.8 x10^3/uL (1.0-4.8); LYMPH % 37 % (24-48); MEAN CORPUSCULAR HEMOGLOBIN 32 pg (25-35); MEAN CORPUSCULAR HGB CONC 35 g/dL (31-37); MEAN CORPUSCULAR VOLUME 93 fL (79-100); MONO # 0.7 x10^3/uL (0.0-1.1); MONO % 10 % (0-9); NEUT # 3.4 x10^3/uL (1.8-7.7); NEUT % 47 % (31-73); PLATELET COUNT 232 x10^3/uL (140-400); RED BLOOD COUNT 4.09 x10^6/uL (4.30-5.70); RED CELL DISTRIBUTION WIDTH 17.2 % (11.5-14.5); WHITE BLOOD COUNT 7.4 x10^3/uL (4.0-11.0)
[2019-09-23 18:27] LABS: CALCIUM 8.4 mg/dL (8.5-10.1); GFR 75.7; POTASSIUM 3.1 mmol/L (3.5-5.1)
[2019-09-23 18:33] LABS: ALBUMIN 3.3 g/dL (3.4-5.0); ALBUMIN/GLOBULIN RATIO 0.8 (1.0-1.7); TOTAL BILIRUBIN 0.2 mg/dL (0.2-1.0); TOTAL PROTEIN 7.5 g/dL (6.4-8.2)
[2019-09-23 20:05] VITALS: BP 111/63
== END 2019-09-23 21:07 | disposition home or self-care (01) ==
LOC: ER 16:33
DX: F10.229 Alcohol dependence with intoxication, unspecified (principal); I48.20 Chronic atrial fibrillation, unspecified; M19.90 Unspecified osteoarthritis, unspecified site; I10 Essential (primary) hypertension; Z88.0 Allergy status to penicillin; Z59.0 Homelessness
CPT/HCPCS: 36415; 80053; 85025; 99285

== ENCOUNTER 2020-03-21 20:58 | Inpatient (IN) | payer MEDICAID ==
[~2020-03-21] VITALS: Ht 172.7 cm; Wt 89.5 kg
[~2020-03-21 20:58] MED LIST changes: +AMLO-186 PO; -AMLO5TAB10 PO; -ASPI-612 PO; +ASPI-886 PO; -ISOS30TA4 PO; +ISOS30TA68 PO; +MIRT-36 PO; -MIRT15TA PO
[2020-03-21] MEDS ORDERED: IV NORMAL SALINE 1000ML BAG 1,000 ML IV SCH (21:15)
[2020-03-21] MEDS ORDERED: ONDANSETRON PF 4 MG/2 ML VIAL. IVP ONE (21:15)
[2020-03-21 21:36] LABS: CALCIUM 8.7 mg/dL (8.5-10.1); CREATININE 1.2 mg/dL (0.7-1.3); GFR 61.3; POTASSIUM 3.6 mmol/L (3.5-5.1)
[2020-03-21 22:00] LABS: BASO # 0.1 x10^3/uL (0.0-0.2); BASO % 1 % (0-3); EOS # 0.2 x10^3/uL (0.0-0.7); EOS % 3 % (0-3); HEMATOCRIT 47.6 % (39.0-53.0); HEMOGLOBIN 15.9 g/dL (13.0-17.5); LYMPH # 4.1 x10^3/uL (1.0-4.8); LYMPH % 53 % (24-48); MEAN CORPUSCULAR HEMOGLOBIN 30 pg (25-35); MEAN CORPUSCULAR HGB CONC 33 g/dL (31-37); MEAN CORPUSCULAR VOLUME 89 fL (79-100); MONO # 0.6 x10^3/uL (0.0-1.1); MONO % 8 % (0-9); NEUT # 2.7 x10^3/uL (1.8-7.7); NEUT % 35 % (31-73); PLATELET COUNT 127 x10^3/uL (140-400); RED BLOOD COUNT 5.33 x10^6/uL (4.30-5.70); RED CELL DISTRIBUTION WIDTH 15.4 % (11.5-14.5); WHITE BLOOD COUNT 7.7 x10^3/uL (4.0-11.0)
[2020-03-21 22:01] LABS: PROTHROMBIN TIME PATIENT 12.6 SEC (11.7-14.0)
--- NOTE | 2020-03-21 22:12 | RAD ---
CT head without contrast: Reason for examination: Fell. Comparison is made to previous study dated 08/07/2019. Axial images were obtained through the brain. No contrast was administered. Reconstruction was perfor med in sagittal and coronal planes. Ventricular systems are prominent but symmetric consistent some generalized cerebral atrophy. No midl ine shift is seen. There is no evidence of intracranial hemorrhage. There are however chronic changes of encephalomalacia in the right occipital lobe which are stable. There are some patchy deep white m atter changes in the frontal lobes bilaterally which is unchanged. No acute hemorrhage, infarct, mass or edema is evident. No abnormalities of seen at the orbits. The paranasal sinuses and mastoid air c ells are clear. There does appear to be a left frontal scalp hematoma. IMPRESSION: Cerebral atrophy. 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 No acute intracranial abnormality evident. Left frontal scalp hematoma. CT cervical spine without contrast: Comparison is made to previous study dated 08/07/2019. Helical images were obtained through the cervical spine with no contrast administered. Reconstruction was performed in sagittal and coronal planes. The C1 ring is intact. The odontoid process is intact and normally centered between the lateral quirino s of C1. The vertebral bodies of the cervical spine are normally aligned anteriorly and posteriorly. No acute fracture or subluxation is seen. There are however chronic degenerative changes from C4 thro ugh T1 with degenerative disc disease from C4 through T1 which is unchanged. There continues to be mi ld to moderate stenosis at the C 5/6 disc level and mild stenosis at C6-7 disc level which is stable. IMPRESSION: Degenerative spondylosis from C4 through T1 with degenerative disc disease. No acute abnormality in the cervical spine. Exposure: One or more of the following individualized dose reduction techniques were utilized for thi s examination: 1. Automated exposure control 2. Adjustment of the mA and/or kV according to patient size 3. Use of iterative reconstruction technique. Electronically signed by: Yudy Reza MD (03/21/2020 10:09 PM) SAUNDRA
--- NOTE | 2020-03-21 22:24 | PHYS DOC ---
Past Medical History Past Medical History: A-Fib, Alcoholism, Arthritis, Hypertension, TIA Additional Past Medical Histor: DDD Past Surgical History: No Surgical History Smoking Status: Never Smoker Alcohol Use: Heavy Adult General Chief Complaint Chief Complaint: TRAUMA ALERT HPI HPI Patient is a 64 year old male with a known past medical history of alcohol dependence now presents emergency department for acute alcohol intoxication and presumed fall. Patient was found outside the bus station acutely intoxicated by EMS. Patient was noted to have tremulous three quarters of a part of the skin had another one on him. Patient was also noted to have evidence of head trauma. Patient cannot recall whether or not he fell but is a poor historian at this time because of acute intoxication. Denies any drug use. Admits to large alcohol consumption. Complains of headache. Review of Systems Review of Systems Constitutional: Denies fever or chills [] Eyes: Denies change in visual acuity, redness, or eye pain [] HENT: Denies nasal congestion or sore throat [] Respiratory: Denies cough or shortness of breath [] Cardiovascular: No additional information not addressed in HPI [] GI: Denies abdominal pain, nausea, vomiting, bloody stools or diarrhea [] : Denies dysuria or hematuria [] Musculoskeletal: Denies back pain or joint pain [] Integument: Denies rash or skin lesions [] Neurologic: Denies headache, focal weakness or sensory changes [] Endocrine: Denies polyuria or polydipsia [] All other systems were reviewed and found to be within normal limits, except as documented in this note. Current Medications Current Medications Current Medications Medications (Trade) Dose Ordered Sig/[facility] Start Time Stop Time Status Last Admin Dose Admin Ondansetron HCl (Zofran) 4 mg 1X ONCE 03/21/20 21:15 03/21/20 21:16 DC 03/21/20 21:33 4 MG Sodium Chloride 1,000 ml @ 100 mls/hr Q10H 03/21/20 21:15 03/22/20 07:14 03/21/20 21:33 100 MLS/HR Allergies Allergies Allergies Coded Allergies Type Severity Reaction Last Updated Verified Penicillins Allergy Intermediate Unknown 08/07/19 Yes Physical Exam Physical Exam Constitutional: Disheveled, well nourished, no acute distress, non-toxic appearance, appears acutely intoxicated HENT: Normocephalic, left eyebrow abrasion and contusion, bilateral external ears normal, oropharynx moist, no oral exudates, nose normal. [] Eyes: PERRLA, EOMI, conjunctiva normal, no discharge. [] Neck: Normal range of motion, no tenderness, supple, no stridor. [] Cardiovascular:Heart rate regular rhythm, no murmur [] Lungs & Thorax: Bilateral breath sounds clear to auscultation [] Abdomen: Bowel sounds normal, soft, no tenderness, no masses, no pulsatile masses. [] Skin: Warm, dry, no erythema, abdomen redness over the torso with raised Back: No tenderness, no CVA tenderness. [] Extremities: No tenderness, no cyanosis, no clubbing, ROM intact, no edema. Bilateral feet with significant whitening and mottling of the skin Neurologic: Alert and oriented X 3, normal motor function, normal sensory function, no focal deficits noted. [] Psychologic: Affect normal, judgement normal, mood normal. [] Current Patient Data Vital Signs Vital Signs Date Time Temp Pulse Resp B/P (MAP) Pulse Ox O2 Delivery O2 Flow Rate FiO2 03/21/20 21:51 84 16 Room Air 03/21/20 21:32 97.6 171/101 (124) 96 97.6 Lab Values Laboratory Tests Test 03/21/20 21:18 White Blood Count 7.7 x10^3/uL (4.0-11.0) Red Blood Count 5.33 x10^6/uL (4.30-5.70) Hemoglobin 15.9 g/dL (13.0-17.5) Hematocrit 47.6 % (39.0-53.0) Mean Corpuscular Volume 89 fL (79-100) Mean Corpuscular Hemoglobin 30 pg (25-35) Mean Corpuscular Hemoglobin Concent 33 g/dL (31-37) Red Cell Distribution Width 15.4 % (11.5-14.5) H Platelet Count 127 x10^3/uL (140-400) L Neutrophils (%) (Auto) 35 % (31-73) Lymphocytes (%) (Auto) 53 % (24-48) H Monocytes (%) (Auto) 8 % (0-9) Eosinophils (%) (Auto) 3 % (0-3) Basophils (%) (Auto) 1 % (0-3) Neutrophils # (Auto) 2.7 x10^3/uL (1.8-7.7) Lymphocytes # (Auto) 4.1 x10^3/uL (1.0-4.8) Monocytes # (Auto) 0.6 x10^3/uL (0.0-1.1) Eosinophils # (Auto) 0.2 x10^3/uL (0.0-0.7) Basophils # (Auto) 0.1 x10^3/uL (0.0-0.2) Prothrombin Time 12.6 SEC (11.7-14.0) Prothrombin Time INR 1.0 (0.8-1.1) Activated Partial Thromboplast Time 27 SEC (24-38) Sodium Level 146 mmol/L (136-145) H Potassium Level 3.6 mmol/L (3.5-5.1) Chloride Level 104 mmol/L (98-107) Carbon Dioxide Level 31 mmol/L (21-32) Anion Gap 11 (6-14) Blood Urea Nitrogen 13 mg/dL (8-26) Creatinine 1.2 mg/dL (0.7-1.3) Estimated GFR (Cockcroft-Gault) 61.3 Glucose Level 104 mg/dL (70-99) H Calcium Level 8.7 mg/dL (8.5-10.1) Troponin I Quantitative 0.019 ng/mL (0.000-0.055) Ethyl Alcohol Level 517 mg/dL (0-10) *H Laboratory Tests 03/21/20 21:18 Laboratory Tests 03/21/20 21:18 EKG EKG [] Radiology/Procedures Radiology/Procedures [] Course & Med Decision Making Course & Med Decision Making Pertinent Labs and Imaging studies reviewed. (See chart for details) 64M presenting with presumed acute head trauma from a fall at home history is uncertain. Patient was apparently acutely intoxicated and does appear to be alcohol dependent. There is outward evidence of head trauma to the left forehead. Therefore will obtain a CT scan of the head and neck to make sure th ere is no acute underlying fracture. In addition patient has evidence of trench foot with beginnings of frostbite to bilateral feet. Warming started immediately on arrival to the emergency department. No other evidence of chest wall tenderness, abdominal tenderness or back tenderness. No other evidence of trauma. 22:30 -CT head and C-spine negative. Alcohol level is 500 representing concern for alcohol poisoning. This time will admit the patient to the medical service. Dragon Disclaimer Dragon Disclaimer This electronic medical record was generated, in whole or in part, using a voice recognition dictation system. Departure Departure Impression: Primary Impression: Alcohol poisoning Disposition: ADMITTED INPT THIS HOSP Condition: GUARDED Referrals: NO PCP (PCP) CLOVIS DELANEY MD Mar 21, 2020 22:24
--- NOTE | 2020-03-22 00:25 | NUR ---
Pt arrived on the unit at approximately 0025 from ED on [facility]. Pt alert and oriented. Pt ambulated to bed with minimal assistance. Call light in reach, belongings noted. Will continue to monitor. MPRN
[2020-03-22 02:53] VITALS: BP 112/64
[2020-03-22 03:00] LABS: BILIRUBIN,URINE NEGATIVE (NEG); CLARITY,URINE CLEAR; COLOR,URINE YELLOW; NITRITE,URINE NEGATIVE (NEG); PH,URINE 5.5 (<5.0-8.0); PROTEIN,URINE 30 mg/dL (NEG-TRACE)
[2020-03-22 03:06] LABS: BARBITURATES NEG (NEG); BENZODIAZEPINES NEG (NEG); CANNABINOIDS NEG (NEG); COCAINE NEG (NEG); METHADONE NEG (NEG); OPIATES NEG (NEG); PHENCYCLIDINE NEG (NEG)
[2020-03-22 03:07] LABS: AMPHETAMINE/METHAMPHETAMINE NEG (NEG)
[2020-03-22 03:10] LABS: BACTERIA,URINE 0 /HPF (0-FEW); RBC,URINE 0 /HPF (0-2); WBC,URINE OCC /HPF (0-4)
[2020-03-22 07:00] VITALS: BP 123/67
[2020-03-22] MEDS: FOLIC ACID 1 MG TABLET. PO SCH (08:18)
[2020-03-22] MEDS: THIAMINE 100 MG TABLET. PO SCH (08:19)
[2020-03-22 08:24] LABS: BASO # 0.1 x10^3/uL (0.0-0.2); BASO % 1 % (0-3); EOS # 0.1 x10^3/uL (0.0-0.7); EOS % 2 % (0-3); HEMATOCRIT 38.9 % (39.0-53.0); HEMOGLOBIN 12.9 g/dL (13.0-17.5); LYMPH % 38 % (24-48); MEAN CORPUSCULAR HEMOGLOBIN 30 pg (25-35); MEAN CORPUSCULAR HGB CONC 33 g/dL (31-37); MEAN CORPUSCULAR VOLUME 90 fL (79-100); MONO # 0.6 x10^3/uL (0.0-1.1); MONO % 10 % (0-9); NEUT # 2.6 x10^3/uL (1.8-7.7); NEUT % 49 % (31-73); PLATELET COUNT 78 x10^3/uL (140-400); RED BLOOD COUNT 4.33 x10^6/uL (4.30-5.70); RED CELL DISTRIBUTION WIDTH 15.3 % (11.5-14.5); WHITE BLOOD COUNT 5.4 x10^3/uL (4.0-11.0)
[2020-03-22] MEDS: THIAMINE INJ 100 MG, FOLIC ACID INJ 1 MG in IV NORMAL SALINE 1000ML BAG 1,000 ML IV SCH (08:36)
[2020-03-22] MEDS ORDERED: THIAMINE INJ 100 MG, FOLIC ACID INJ 1 MG in IV NORMAL SALINE 1000ML BAG 1,000 ML IV SCH (09:00)
[2020-03-22 09:18] LABS: CALCIUM 7.8 mg/dL (8.5-10.1); CREATININE 0.9 mg/dL (0.7-1.3); GFR 85.5
[2020-03-22 09:21] LABS: POTASSIUM 2.9 mmol/L (3.5-5.1)
[2020-03-22] MEDS ORDERED: POTASSIUM BICARB 20 MEQ EFFERVESCENT TABLET. PO ONE (10:00)
[2020-03-22 11:00] VITALS: BP 156/97
--- NOTE | 2020-03-22 11:59 | HP ---
ADMIT DATE: 03/21/2020 CHIEF COMPLAINT: Alcohol intoxication. HISTORY OF PRESENT ILLNESS: The patient is a pleasant 64-year-old male who is homeless. He lives in a tent behind one of the local stores. Basically, he likes living there. He states he is happy living there, but yesterday, was partying after the football game and apparently fell, he suffered some head trauma. He has got the laceration to the left forehead above the left eye. He was also drunk when he got to the ER, Basically, he has been admitted overnight for [facility] protocol for alcohol intoxication and facial trauma. PAST MEDICAL HISTORY: Alcoholism, AFib, arthritis, hypertension, TIA, degenerative joint disease. ALLERGIES: PENICILLIN. FAMILY HISTORY: Alcoholism. SOCIAL HISTORY: He drinks heavily. No smoking or drugs. He is homeless, but states he likes living in his tent. MEDICATIONS: Reviewed, please refer to the MRAD. REVIEW OF SYSTEMS: Unable to obtain. He is too confused and sedated. PHYSICAL EXAMINATION: VITALS: Within normal limits and are stable. GENERAL: He is somewhat sedated. HEENT: Normal cephalic atraumatic, external auditory canals are patent EYES: He has a trauma above the left eye. Please see the pictures MUSCULOSKELETAL: Well developed, well nourished, good range of motion ENDOCRINE: No thyromegaly was palpated LYMPHATICS: No cervical chain or axillary nodes were noted HEMATOPOIETIC: No bruising NECK: Supple, no JVD, no thyromegaly was noted. LUNGS: Clear to auscultation in all lung velarde without rhonchi or wheezing. HEART: RRR, S1, S2 present. Peripheral pulses intact, no obvious murmurs were noted. ABDOMEN: Soft, nontender. Positive bowel sounds no organomegaly, normal bowel sounds. EXTREMITIES: Without any cyanosis, clubbing, or edema. Pedal pulses intact, Homans sign is negative. NEUROLOGIC: He is somewhat sedated. PSYCHIATRIC: He is somewhat sedated. SKIN: No ulcerations or rashes, good skin turgor, no jaundice. VASCULAR: Good capillary refill, neurovascular bundle appears to be intact. ASSESSMENT AND PLAN: Alcohol intoxication with fall and head trauma. The patient has been admitted. We were doing alcohol withdrawal protocol. Wound care, home meds, DVT prophylaxis. Full code. PROGNOSIS: Guarded. NIAL Fernando ALMANZAR DO DR: Kina JOB#: [id number] / [id number]
--- NOTE | 2020-03-22 13:36 | NUR ---
SS following for discharge planning. SS reviewed pt chart and discussed with pt5 RN. Pt is homeless and lives in the [facility] [place]. Pt reporting that he has a tent and a good set up. COVID19 test pending. Pt is currently on room air. Pt had ETOH of 517. PAT team referral made for ETOH and homelessness. Chao from PAT team to come visit with pt. SS will continue to follow for discharge planning.
[2020-03-22 15:00] VITALS: BP 167/94
[2020-03-22] MEDS: ISOSORBIDE MONONITRATE ER 30 MG TAB.ER.24H PO SCH (17:46)
[2020-03-22] MEDS: ASPIRIN ENTERIC COATED 81 MG TABLET.DR. PO SCH (17:47)
[2020-03-22] MEDS: METOPROLOL SUCC 24HR ER 50 MG TAB.ER.24H. PO SCH (17:47)
[2020-03-22 19:20] VITALS: BP 149/95
[2020-03-22] MEDS: ATORVASTATIN CALCIUM 40 MG TABLET. PO SCH (19:57)
[2020-03-22 22:50] VITALS: BP 177/104
--- NOTE | 2020-03-23 01:49 | NUR ---
PT states that he received his first COVID vaccine on Feb 28 in [place], but has not gotten his second one. Pt is COVID (-)
[2020-03-23 02:50] VITALS: BP 168/103
[2020-03-23] MEDS: cloNIDine HCL 0.1 MG TABLET PO PRN (03:00)
[2020-03-23 07:00] VITALS: BP 178/105
--- NOTE | 2020-03-23 09:07 | PDOC ---
[employer] PROGRESS NOTE Date of Service DOS: DATE: 03/23/20 TIME: 09:02 Chief Complaint Chief Complaint Alcohol intoxication History of Present Illness History of Present Illness The patient is a pleasant 64-year-old male who is homeless. He lives in a tent behind one of the local stores. Basically, he likes living there. He states he is happy living there, but yesterday, was partying after the football game and apparently fell, he suffered some head trauma. He has got the laceration to the left forehead above the left eye. He was also drunk when he got to the ER, Basically, he has been admitted overnight for [facility] protocol for alcohol intox ication and facial trauma. 03/23/2020 -Patient seen and examined -Jayden RN -Bruce negative -Chart reviewed Vitals/I&O Vitals/I&O: Vital Signs Date Time Temp Pulse Resp B/P (MAP) Pulse Ox O2 Delivery O2 Flow Rate FiO2 03/23/20 03:00 116 168/103 03/23/20 02:50 98.2 18 93 Room Air 98.2 I & O 03/22/20 03/22/20 03/23/20 15:00 23:00 07:00 Intake Total 240 ml 360 ml Output Total 1700 ml Balance 240 ml -1340 ml Physical Exam General: Alert, Oriented X3, No acute distress Heart: Regular rate, No murmurs Lungs: Wheezing Abdomen: Soft, No tenderness Extremities: No clubbing, No cyanosis, No edema Skin: Other (Healing laceration and ecchymosis noted in left perioral region) Labs Labs: Laboratory Tests Test 03/22/20 11:05 Coronavirus (PCR) Not detected (Not Detected) Review of Systems Review of Systems: Denies CP. Denies fever. Assessment and Plan Assessmemt and Plan Alcohol intoxication 03/23/2020 Plan 1. EtOH withdrawal protocol 2. Wound Care 3. Home meds 4. DVT prophylaxis 5. Full code 6. Hope to d/c in AM Comment Review of Relevant I have reviewed the following items patti (where applicable) has been applied. Medications: Current Medications Medications (Trade) Dose Ordered Sig/Zander Route PRN Reason Start Time Stop Time Status Last Admin Dose Admin Potassium Bicarbonate (Potassium Effervescent Tablet) 40 meq 1X ONCE PO 03/22/20 10:00 03/22/20 10:01 DC 03/22/20 10:00 Clonidine HCl (Catapres) 0.1 mg PRN Q1HR PRN PO SBP > 180 or DBP > 100, MRX3 03/22/20 16:30 03/23/20 03:00 Aspirin (Ecotrin) 81 mg DAILY PO 03/22/20 17:00 03/22/20 17:47 Isosorbide Mononitrate (Imdur) 30 mg DAILY PO 03/22/20 17:00 03/22/20 17:46 Metoprolol Succinate (Toprol Xl) 50 mg DAILY PO 03/22/20 17:00 03/22/20 17:47 Atorvastatin Calcium (Lipitor) 80 mg QHS PO 03/22/20 21:00 03/22/20 19:57 Justifications for Admission Other Justification MARIO ALMANZAR III DO Mar 23, 2020 09:07
[2020-03-23] MEDS: ASPIRIN ENTERIC COATED 81 MG TABLET.DR. PO SCH (09:54)
[2020-03-23 09:55] LABS: BASO # 0.1 x10^3/uL (0.0-0.2); BASO % 1 % (0-3); EOS # 0.2 x10^3/uL (0.0-0.7); EOS % 2 % (0-3); HEMATOCRIT 44.4 % (39.0-53.0); HEMOGLOBIN 15.1 g/dL (13.0-17.5); LYMPH # 1.7 x10^3/uL (1.0-4.8); LYMPH % 21 % (24-48); MEAN CORPUSCULAR HEMOGLOBIN 31 pg (25-35); MEAN CORPUSCULAR HGB CONC 34 g/dL (31-37); MEAN CORPUSCULAR VOLUME 90 fL (79-100); MONO # 0.6 x10^3/uL (0.0-1.1); MONO % 8 % (0-9); NEUT # 5.2 x10^3/uL (1.8-7.7); NEUT % 68 % (31-73); PLATELET COUNT 68 x10^3/uL (140-400); RED BLOOD COUNT 4.94 x10^6/uL (4.30-5.70); RED CELL DISTRIBUTION WIDTH 14.9 % (11.5-14.5); WHITE BLOOD COUNT 7.7 x10^3/uL (4.0-11.0)
[2020-03-23] MEDS: METOPROLOL SUCC 24HR ER 50 MG TAB.ER.24H. PO SCH (09:55)
[2020-03-23] MEDS: THIAMINE 100 MG TABLET. PO SCH (09:55)
[2020-03-23] MEDS: ISOSORBIDE MONONITRATE ER 30 MG TAB.ER.24H PO SCH (09:55)
[2020-03-23] MEDS: THIAMINE INJ 100 MG, FOLIC ACID INJ 1 MG in IV NORMAL SALINE 1000ML BAG 1,000 ML IV SCH (09:55)
[2020-03-23] MEDS: FOLIC ACID 1 MG TABLET. PO SCH (09:56)
[2020-03-23 10:07] LABS: CALCIUM 8.8 mg/dL (8.5-10.1); CREATININE 0.9 mg/dL (0.7-1.3); GFR 85.5; POTASSIUM 3.5 mmol/L (3.5-5.1)
[2020-03-23 11:00] VITALS: BP 144/89
--- NOTE | 2020-03-23 11:39 | NUR ---
SS following up with discharge planning. SS reviewed pt chart and discussed with pt RN. Pt is currently on room air. COVID19 negative. ETOH withdrawal. Chao from PAT team met with pt and provided resources for RESTART and Rediscover. Pt declined AA resources. Pt not wanting facility placement at this time. Pt wanting to return to his homeless situation in the [facility] [employer]. SS will continue to follow for discharge planning.
[2020-03-23 15:00] VITALS: BP 147/93
[2020-03-23 19:26] VITALS: BP 145/86
[2020-03-23] MEDS: ATORVASTATIN CALCIUM 40 MG TABLET. PO SCH (21:17)
[2020-03-23 22:48] VITALS: BP 135/89
[2020-03-24] MEDS: cloNIDine HCL 0.1 MG TABLET PO PRN (02:04)
[2020-03-24 02:38] VITALS: BP 139/95
[2020-03-24 07:00] VITALS: BP 163/104
[2020-03-24] MEDS: FOLIC ACID 1 MG TABLET. PO SCH (08:55)
[2020-03-24] MEDS: ASPIRIN ENTERIC COATED 81 MG TABLET.DR. PO SCH (08:55)
[2020-03-24] MEDS: ISOSORBIDE MONONITRATE ER 30 MG TAB.ER.24H PO SCH (08:56)
[2020-03-24] MEDS: METOPROLOL SUCC 24HR ER 50 MG TAB.ER.24H. PO SCH (08:56)
[2020-03-24] MEDS: THIAMINE 100 MG TABLET. PO SCH (08:56)
[2020-03-24 11:00] VITALS: BP 118/81
--- NOTE | 2020-03-24 11:14 | PDOC ---
[employer] PROGRESS NOTE Date of Service DOS: DATE: 03/24/20 TIME: 11:12 Chief Complaint Chief Complaint Alcohol intoxication History of Present Illness History of Present Illness The patient is a pleasant 64-year-old male who is homeless. He lives in a tent behind one of the local stores. Basically, he likes living there. He states he is happy living there, but yesterday, was partying after the football game and apparently fell, he suffered some head trauma. He has got the laceration to the left forehead above the left eye. He was also drunk when he got to the ER, Basically, he has been admitted overnight for [facility] protocol for alcohol intox ication and facial trauma. 03/23/2020 -Patient seen and examined -Dw RN -Covid negative -Chart reviewed 03/24/2020 -Patient seen and examined -Dw RN -Chart reviewed Vitals/I&O Vitals/I&O: Vital Signs Date Time Temp Pulse Resp B/P (MAP) Pulse Ox O2 Delivery O2 Flow Rate FiO2 03/24/20 08:56 115 163/104 03/24/20 08:00 Nasal Cannula 03/24/20 07:00 97.3 20 95 97.3 I & O 03/23/20 03/23/20 03/24/20 15:00 23:00 07:00 Intake Total 570 ml 1200 ml Output Total 901 ml 900 ml 650 ml Balance -331 ml 300 ml -650 ml Physical Exam General: Alert, Oriented X3, No acute distress Heart: Regular rate, No murmurs Lungs: Wheezing Abdomen: Soft, No tenderness, No hepatosplenomegaly Extremities: No clubbing, No cyanosis, No edema Skin: Other (Healing laceration and ecchymosis noted in left perioral region) Review of Systems Review of Systems: No clubbing, tremors present Assessment and Plan Assessmemt and Plan 03/24/2020 A: Alcohol intoxication P: 1. EtOH withdrawal protocol 2. Wound Care 3. Home meds 4. DVT prophylaxis 5. Full code Comment Review of Relevant I have reviewed the following items patti (where applicable) has been applied. Justifications for Admission Other Justification MARIO ALMANZAR III DO Mar 24, 2020 11:14
--- NOTE | 2020-03-24 12:51 | NUR ---
SS following up with discharge planning. SS reviewed pt chart and discussed with pt RN. Pt is currently on room air. COVID19 negative. PT/OT ordered. Pt on CIWA protocol. SS met with pt and discussed discharge planning. Pt reported that he has his camps[place] by [facility], [facility] and [place] in [place]. Pt reported that he will discharge back to his campsite at discharge. [facility]. SS will continue to follow for discharge planning.
[2020-03-24 15:00] VITALS: BP 103/74
[2020-03-24 19:00] VITALS: BP 125/76
[2020-03-24] MEDS: ATORVASTATIN CALCIUM 40 MG TABLET. PO SCH (19:32)
[2020-03-24 22:24] VITALS: BP 140/96
[2020-03-25 02:16] VITALS: BP 181/110
[2020-03-25] MEDS: cloNIDine HCL 0.1 MG TABLET PO PRN (02:21)
[2020-03-25 07:00] VITALS: BP 169/106
[2020-03-25] MEDS: ASPIRIN ENTERIC COATED 81 MG TABLET.DR. PO SCH (08:53)
[2020-03-25] MEDS: ISOSORBIDE MONONITRATE ER 30 MG TAB.ER.24H PO SCH (08:54)
[2020-03-25] MEDS: FOLIC ACID 1 MG TABLET. PO SCH (08:55)
[2020-03-25] MEDS: THIAMINE 100 MG TABLET. PO SCH (08:55)
[2020-03-25 08:56] VITALS: BP 169/106
[2020-03-25] MEDS: METOPROLOL SUCC 24HR ER 50 MG TAB.ER.24H. PO SCH (08:56)
--- NOTE | 2020-03-25 11:26 | PDOC ---
[employer] PROGRESS NOTE Date of Service DOS: DATE: 03/25/20 TIME: 11:23 Chief Complaint Chief Complaint Alcohol intoxication History of Present Illness History of Present Illness The patient is a pleasant 64-year-old male who is homeless. He lives in a tent behind one of the local stores. Basically, he likes living there. He states he is happy living there, but yesterday, was partying after the football game and apparently fell, he suffered some head trauma. He has got the laceration to the left forehead above the left eye. He was also drunk when he got to the ER, Basically, he has been admitted overnight for [facility] protocol for alcohol intox ication and facial trauma. 03/23/2020 -Patient seen and examined -Jayden RN -Covid negative -Chart reviewed 03/24/2020 -Patient seen and examined -Jayden RN -Chart reviewed 03/25/2020 -Patient seen and examined. -Jayden RN. 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 -Patient deciding between LTC and d/c home. -Chart reviewed Vitals/I&O Vitals/I&O: Vital Signs Date Time Temp Pulse Resp B/P (MAP) Pulse Ox O2 Delivery O2 Flow Rate FiO2 03/25/20 08:56 115 169/106 03/25/20 08:00 Nasal Cannula 03/25/20 07:00 97.8 20 98 97.8 I & O 03/24/20 03/24/20 03/25/20 15:00 23:00 07:00 Intake Total 550 ml 500 ml 100 ml Output Total 600 ml Balance 550 ml 500 ml -500 ml Physical Exam General: Alert, Oriented X3, No acute distress Heart: Regular rate, No murmurs Lungs: Wheezing Abdomen: Soft, No tenderness, No hepatosplenomegaly Extremities: No clubbing, No cyanosis, No edema Skin: Other (Healing laceration and ecchymosis noted in left perioral region) Review of Systems Review of Systems: Denies fever. Denies CP. Assessment and Plan Assessmemt and Plan 03/25/2020 Alcohol intoxication Plan 1. EtOH withdrawal protocol 2. Wound care 3. DVT prophylaxis 4. Full code 5. Trend labs 6. Probable d/c today, likely home but pt deciding between LTC and home Comment Review of Relevant I have reviewed the following items patti (where applicable) has been applied. Justifications for Admission Other Justification MARIO ALMANZAR III DO Mar 25, 2020 11:26
--- NOTE | 2020-03-25 11:43 | NUR ---
SS following up with discharge planning. SS reviewed pt chart and discussed with pt RN. Pt is currently on room air. PT/OT recommended assisted unit. COVID19 negative. SS met with pt and discussed discharge planning. Physician met with pt as well. Pt declining facility placement at this time. Pt requesting to return [place]. Discharge order for self care on the chart. Pt is requesting to be transported to [facility]. Pt will discharge today at 1200 via [facility] transport, [id number].
--- NOTE | 2020-03-25 12:54 | NUR ---
Discharge Note: THONY GRIGGS [address] Discharge instructions and discharge home medications reviewed with Patient and a copy given. All questions have been answered and understanding verbalized. The following instructions and handouts were given: alcohol intoxication. Discontinued iv line and catheter intact. Patient discharged to home-self care with [place] transportation to [facility] near [facility].
--- NOTE | 2020-03-25 13:17 | DS ---
DATE OF DISCHARGE: 03/25/2020 ADMISSION DIAGNOSES: Alcohol intoxication, fall, head trauma. DISCHARGE DIAGNOSES: Resolving alcohol intoxication, history of atrial fibrillation, arthritis, hypertension, transient ischemic attack, degenerative joint disease. HOSPITAL COURSE: The patient is a pleasant middle-aged male who basically drinks too much. He is homeless. He lives in a tent where he likes to live. He states he does not want any place else to live, basically presented after he fell. He was drunk. He has some facial trauma with laceration of the left eye. We did alcohol withdrawal protocol, did some wound care, physical therapy and occupational therapy. Today, I saw and examined him, he is at his baseline. We plan to discharge to home per his request. We did offer for him to go to residential, but he refuses. DISPOSITION: Home to his tent. ACTIVITY: As tolerated. DIET: Low sodium. MEDICATIONS: Please see the MRAD. TOTAL TIME: 34 minutes. MARIO ALMANZAR DO DR: PRADEEP/manjit JOB#: [id number] / [id number]
== END 2020-03-25 12:30 | disposition home or self-care (01) | DRG 605 ==
LOC: ER 20:58 → OBSVTOIN 22:23 → 2 SOUTH 22:23
PROVIDERS: ADMIT Family Medicine; ATTEND Family Medicine
DX: S01.81XA Laceration without foreign body of other part of head, initial encounter (principal); E87.1 Hypo-osmolality and hyponatremia; M19.90 Unspecified osteoarthritis, unspecified site; I10 Essential (primary) hypertension; I48.91 Unspecified atrial fibrillation; F10.229 Alcohol dependence with intoxication, unspecified; X58.XXXA Exposure to other specified factors, initial encounter; W19.XXXA Unspecified fall, initial encounter; Y90.8 Blood alcohol level of 240 mg/100 ml or more; Z20.822 Contact with and (suspected) exposure to COVID-19; Y93.89 Activity, other specified; Y92.89 Other specified places as the place of occurrence of the external cause; Y99.8 Other external cause status; Z59.0 Homelessness; Z88.0 Allergy status to penicillin; Z86.73 Personal history of transient ischemic attack (TIA), and cerebral infarction without residual deficits
CPT/HCPCS: 36415; 70450; 72125; 80048; 80307; 81001; 84484; 85025; 85610; 85730; 96361; 96374; 99285; G0480; J2060; J2405; J3411; J3490; J7030; U0003; 97116-GP; 97535-GO; G0378

== ENCOUNTER 2020-03-27 21:08 | Emergency (ER) | payer MEDICAID ==
[~2020-03-27] VITALS: Ht 182.9 cm; Wt 84.1 kg
--- NOTE | 2020-03-27 21:23 | ED.ADGEN ---
Past Medical History Past Medical History: A-Fib, Alcoholism, Arthritis, Hypertension, TIA Additional Past Medical Histor: DDD Past Surgical History: No Surgical History Smoking Status: Never Smoker Alcohol Use: Heavy General Adult HPI: HPI: Patient is a 65 year old male brought in by EMS from [employer]. He had been at the bar for about 6 hours and it had a beer and 2 shots, he also been drinking for that at home.. Patient had an episode of shaking which is what prompted the restaurant to call EMS. Patient states he had a seizure. States he has a history of seizures but does not have them very frequently and does not take any medications for it. Patient states he has a history of heart condition and cerebral palsy. Also complaining of right upper quad abdominal pain. Patient states he occasionally has blood in his stools but denies melena. Patient states he did not fall this time but fell last time when he was here about a week ago. Review of Systems: Review of Systems: All other systems within normal limits except for as noted in the HPI Current Medications: Current Medications Medications (Trade) Dose Ordered Sig/Zander Start Time Stop Time Status Last Admin Dose Admin Lorazepam (Ativan Inj) 2 mg 1X ONCE 03/28/20 01:00 03/28/20 01:01 DC 03/28/20 00:56 2 MG Sodium Chloride 1,000 ml @ 1,000 mls/hr 1X ONCE 03/27/20 23:30 03/28/20 00:29 DC 03/27/20 23:14 1,000 MLS/HR Allergies: Allergies: Allergies Coded Allergies Type Severity Reaction Last Updated Verified Penicillins Allergy Intermediate 03/24/20 Yes Physical Exam: PE: Constitutional: Well developed, well nourished, no acute distress, non-toxic a ppearance. [] HENT: Normocephalic, atraumatic, bilateral external ears normal, nose normal. [] Eyes: PERRLA, conjunctiva normal, no discharge. [] Neck: No rigidity, supple, no stridor. [] Cardiovascular: Regular rate and rhythm, brisk cap refill [] Lungs & Thorax: Non labored symmetric respirations, no tachypnea or respiratory distress [] Abdomen: Soft, nondistended, right upper quadrant tenderness. Skin: Warm, dry, no erythema, no rash. [] Back: Unremarkable Extremities: No deformities, range of motion grossly intact, no lower extremity edema [] Neurologic: Alert and oriented X 3, no focal deficits noted. [] Psychologic: Affect normal, intermittently cooperative and cantankerous, mood normal. [] Current Patient Data: Labs: Laboratory Tests Test 03/27/20 22:39 White Blood Count 6.7 x10^3/uL (4.0-11.0) Red Blood Count 4.88 x10^6/uL (4.30-5.70) Hemoglobin 15.1 g/dL (13.0-17.5) Hematocrit 44.1 % (39.0-53.0) Mean Corpuscular Volume 90 fL (79-100) Mean Corpuscular Hemoglobin 31 pg (25-35) Mean Corpuscular Hemoglobin Concent 34 g/dL (31-37) Red Cell Distribution Width 15.7 % (11.5-14.5) H Platelet Count 159 x10^3/uL (140-400) Neutrophils (%) (Auto) 67 % (31-73) Lymphocytes (%) (Auto) 23 % (24-48) L Monocytes (%) (Auto) 8 % (0-9) Eosinophils (%) (Auto) 1 % (0-3) Basophils (%) (Auto) 1 % (0-3) Neutrophils # (Auto) 4.5 x10^3/uL (1.8-7.7) Lymphocytes # (Auto) 1.6 x10^3/uL (1.0-4.8) Monocytes # (Auto) 0.5 x10^3/uL (0.0-1.1) Eosinophils # (Auto) 0.0 x10^3/uL (0.0-0.7) Basophils # (Auto) 0.1 x10^3/uL (0.0-0.2) Sodium Level 141 mmol/L (136-145) Potassium Level 3.8 mmol/L (3.5-5.1) Chloride Level 102 mmol/L (98-107) Carbon Dioxide Level 24 mmol/L (21-32) Anion Gap 15 (6-14) H Blood Urea Nitrogen 23 mg/dL (8-26) Creatinine 1.3 mg/dL (0.7-1.3) Estimated GFR (Cockcroft-Gault) 55.8 BUN/Creatinine Ratio 18 (6-20) Glucose Level 132 mg/dL (70-99) H Calcium Level 8.8 mg/dL (8.5-10.1) Magnesium Level 2.1 mg/dL (1.8-2.4) Total Bilirubin 0.5 mg/dL (0.2-1.0) Aspartate Amino Transferase (AST) 75 U/L (15-37) H Alanine Aminotransferase (ALT) 61 U/L (16-63) Alkaline Phosphatase 116 U/L (46-116) Total Protein 8.5 g/dL (6.4-8.2) H Albumin 3.9 g/dL (3.4-5.0) Albumin/Globulin Ratio 0.8 (1.0-1.7) L Lipase 94 U/L (73-393) Ethyl Alcohol Level 363 mg/dL (0-10) H Laboratory Tests 03/27/20 22:39 Laboratory Tests 03/27/20 22:39 Vital Signs: Vital Signs Date Time Temp Pulse Resp B/P (MAP) Pulse Ox O2 Delivery O2 Flow Rate FiO2 03/28/20 01:28 106 18 138/65 (89) 97 Room Air 03/27/20 21:08 98.6 98.6 EKG: EKG: [] Heart Score: Risk Factors: Risk Factors: DM, Current or recent (<one month) smoker, HTN, HLP, family history of CAD, obesity. Risk Scores: Score 0 - 3: 2.5% MACE over next 6 weeks - Discharge Home Score 4 - 6: 20.3% MACE over next 6 weeks - Admit for Clinical Observation Score 7 - 10: 72.7% MACE over next 6 weeks - Early Invasive Strategies Radiology/Procedures: Radiology/Procedures: Pain resolved, extent was then neck it might have resolved spontaneously. Patient is afebrile with no leukocytosis. Given return precautions for acute cholecystitis patient clinically sober and able to ambulate with a steady gait. He is requesting a cab voucher to go back to his tent, declined offer for place ment in a homeless facility [] Course & Med Decision Making: Course & Med Decision Making Pertinent Labs and Imaging studies reviewed. (See chart for details) Work-up unremarkable. Patient discharged in stable condition, and requesting to be able to leave. [] Dragon Disclaimer: Dragon Disclaimer: This electronic medical record was generated, in whole or in part, using a voice recognition dictation system. Departure Departure Impression: Primary Impression: RUQ abdominal pain Additional Impression: Seizure-like activity Disposition: 01 DC HOME SELF CARE/HOMELESS Condition: STABLE Referrals: NO PCP (PCP) Additional Instructions: [facility] [address] [place] [address] [facility] [address] [place] [address] [facility] [address] [facility] [place] [address] [facility] [address] [place] [address] [facility] [address] [place] [address] [facility] [address] [place] [address] [facility] [place] [address] [place] [address] [facility] [address] [place] [address] [facility] [address] [place] [address] [facility] [address] [place] [address] Problem Qualifiers SRINIVAS ALVARENGA MD Mar 27, 2020 21:23
[2020-03-27 22:48] LABS: BASO # 0.1 x10^3/uL (0.0-0.2); BASO % 1 % (0-3); EOS % 1 % (0-3); HEMATOCRIT 44.1 % (39.0-53.0); HEMOGLOBIN 15.1 g/dL (13.0-17.5); LYMPH # 1.6 x10^3/uL (1.0-4.8); LYMPH % 23 % (24-48); MEAN CORPUSCULAR HEMOGLOBIN 31 pg (25-35); MEAN CORPUSCULAR HGB CONC 34 g/dL (31-37); MEAN CORPUSCULAR VOLUME 90 fL (79-100); MONO # 0.5 x10^3/uL (0.0-1.1); MONO % 8 % (0-9); NEUT # 4.5 x10^3/uL (1.8-7.7); NEUT % 67 % (31-73); PLATELET COUNT 159 x10^3/uL (140-400); RED BLOOD COUNT 4.88 x10^6/uL (4.30-5.70); RED CELL DISTRIBUTION WIDTH 15.7 % (11.5-14.5); WHITE BLOOD COUNT 6.7 x10^3/uL (4.0-11.0)
[2020-03-27 23:07] LABS: CALCIUM 8.8 mg/dL (8.5-10.1); CREATININE 1.3 mg/dL (0.7-1.3); GFR 55.8; POTASSIUM 3.8 mmol/L (3.5-5.1)
[2020-03-27 23:11] LABS: ALBUMIN 3.9 g/dL (3.4-5.0); ALBUMIN/GLOBULIN RATIO 0.8 (1.0-1.7); MAGNESIUM 2.1 mg/dL (1.8-2.4); TOTAL BILIRUBIN 0.5 mg/dL (0.2-1.0); TOTAL PROTEIN 8.5 g/dL (6.4-8.2)
[2020-03-27] MEDS ORDERED: IV NORMAL SALINE 1000ML BAG 1,000 ML IV ONE (23:30)
--- NOTE | 2020-03-28 00:49 | RAD ---
Limited abdomen ultrasound HISTORY: Right quadrant abdominal pain. FINDINGS: Bowel gas shadowing completely obscures the pancreas, aorta and IVC not allowing visualizat ion. Increased liver echogenicity likely steatosis. The upper segments of the liver poorly visualized due to rib shadowing. No liver mass documented although sensitivity is likely limited due to the greatest degree of shadowing present. There may be hepatomegaly right hepatic lobe as a length of 18.3 cm. Th ere is gallbladder sludge, some tiny gravel-type gallstones gallbladder neck are possibly present, th e technical services specialist indicates there is a sonographic Cesar sign during examination. The technical services specialist worksh eet indicates pericholecystic fluid was present during the exam although the appearance is not eviden t on the saved images. No biliary ductal dilation common bile duct diameter 5 mm. Right renal length 10.0 cm. The right renal mass or hydronephrosis documented. Spleen and left kidney were not evaluated. IMPRESSION: 1. Gallbladder sludge, and possible tiny gallbladder calculi at the gallbladder neck. The technical services specialist indicates a Cesar sign was present during examination which could indicate early clinical features of acute cholecystitis, although no inflammatory changes are evident on the saved sonographic images. No biliary ductal dilation evident. 2. Increased liver echogenicity likely steatosis. Electronically signed by: Hero Burgess MD (03/28/2020 12:45 AM) [facility]
[2020-03-28 01:28] VITALS: BP 138/65
== END 2020-03-28 01:35 | disposition home or self-care (01) ==
LOC: ER 21:08
DX: R10.11 Right upper quadrant pain (principal); R56.9 Unspecified convulsions; I48.91 Unspecified atrial fibrillation; I10 Essential (primary) hypertension; F10.20 Alcohol dependence, uncomplicated; Y90.8 Blood alcohol level of 240 mg/100 ml or more; Z86.73 Personal history of transient ischemic attack (TIA), and cerebral infarction without residual deficits; Z88.0 Allergy status to penicillin
CPT/HCPCS: 36415; 76705; 80053; 83690; 83735; 85025; 96361; 96374; 96376; 99285; G0480; J2060; J7030

== ENCOUNTER 2020-03-30 10:35 | Inpatient (IN) | payer MEDICAID ==
[~2020-03-30] VITALS: Ht 177.8 cm; Wt 90.3 kg
--- NOTE | 2020-03-30 11:41 | ED.ADGEN ---
Past Medical History Past Medical History: A-Fib, Alcoholism, Arthritis, Hypertension, TIA Additional Past Medical Histor: DDD Past Surgical History: No Surgical History Smoking Status: Never Smoker Alcohol Use: Heavy General Adult EDM: Chief Complaint: ALCOHOL INTOXICATION HPI: HPI: Patient is a 65-year-old male who is a history of alcoholism presents to the emergency room intoxicated. According to EMS is social worker psychiatric called an ambu priscilla for him and wanted him taken to [facility] for detox. Patient states he does not know why he is here. He denies any complaints. He does not believe he has fallen today. He recently was discharged from the hospital after an evaluation for falls. When asked if he wants to detox patient states that it would be great if we can get him a shot of alcohol. Patient is intoxicated and history is severely limited due to slurred speech and intoxication. Review of Systems: Review of Systems: Negative other than noted Allergies: Allergies: Allergies Coded Allergies Type Severity Reaction Last Updated Verified Penicillins Allergy Intermediate 03/24/20 Yes Physical Exam: PE: General: Awake, alert, NAD. Well Nourished, well hydrated. Cooperative HEENT: Healing bruises under left eye, EOMI, PERRL, airway patent, moist oral mucosa Neck: Supple, trachea midline Respiratory: CTA bilaterally, normal effort, no wheezing/crackles CV: Tachycardic, no murmur, cap refill <2 GI: Soft, nondistended, nontender, no masses MSK: No obvious deformities Skin: Warm, dry, intact Neuro: Speech slurred, sensory and motor grossly intact, no focal deficits Psych: Intoxicated, slow response, not homicidal or suicidal. Current Patient Data: Vital Signs: Vital Signs Date Time Temp Pulse Resp B/P (MAP) Pulse Ox O2 Delivery O2 Flow Rate FiO2 03/30/20 17:45 114 177/119 (138) 95 Room Air 03/30/20 15:45 2.0 03/30/20 10:39 98.2 16 98.2 EKG: EKG: [] Heart Score: Risk Factors: Risk Factors: DM, Current or recent (<one month) smoker, HTN, HLP, family history of CAD, obesity. Risk Scores: Score 0 - 3: 2.5% MACE over next 6 weeks - Discharge Home Score 4 - 6: 20.3% MACE over next 6 weeks - Admit for Clinical Observation Score 7 - 10: 72.7% MACE over next 6 weeks - Early Invasive Strategies Radiology/Procedures: Radiology/Procedures: [] Course & Med Decision Making: Course & Med Decision Making Pertinent Labs and Imaging studies reviewed. (See chart for details) Patient presents to the Emergency Room due to intoxication. On exam, patient is intoxicated but has no complaints. Patient does not have any signs of acute trauma at this time and has stable vital signs. Patient has no complaints. Patient will be observed in the Emergency Room until clinically sober and will be re-evaluated at that time. On re-evaluation, patient has started to have withdrawal symptoms. He was given Ativan. Patient discussed with Dr Newman who will admit for withdrawal. Minnie Disclaimer: Minnie Disclaimer: This electronic medical record was generated, in whole or in part, using a voice recognition dictation system. Departure Departure Impression: Primary Impression: Alcohol intoxication Disposition: ADMITTED INPT THIS HOSP Condition: IMPROVED Referrals: NO PCP (PCP) OWEN MEJIA MD Mar 30, 2020 11:41
[2020-03-30] MEDS ORDERED: chlordiazePOXIDE HCL 25 MG CAPSULE PO ONE (18:00)
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
[2020-03-30 18:22] LABS: BASO # 0.2 x10^3/uL (0.0-0.2); BASO % 3 % (0-3); EOS % 1 % (0-3); HEMATOCRIT 45.7 % (39.0-53.0); HEMOGLOBIN 15.2 g/dL (13.0-17.5); LYMPH # 2.6 x10^3/uL (1.0-4.8); LYMPH % 44 % (24-48); MEAN CORPUSCULAR HEMOGLOBIN 30 pg (25-35); MEAN CORPUSCULAR HGB CONC 33 g/dL (31-37); MEAN CORPUSCULAR VOLUME 90 fL (79-100); MONO # 0.5 x10^3/uL (0.0-1.1); MONO % 9 % (0-9); NEUT # 2.6 x10^3/uL (1.8-7.7); NEUT % 44 % (31-73); PLATELET COUNT 173 x10^3/uL (140-400); RED BLOOD COUNT 5.05 x10^6/uL (4.30-5.70); RED CELL DISTRIBUTION WIDTH 16.5 % (11.5-14.5); WHITE BLOOD COUNT 5.9 x10^3/uL (4.0-11.0)
[2020-03-30 18:29] LABS: CALCIUM 8.7 mg/dL (8.5-10.1); CREATININE 0.8 mg/dL (0.7-1.3); GFR 97.6; POTASSIUM 3.6 mmol/L (3.5-5.1)
[2020-03-30] MEDS ORDERED: diphenhydrAMINE 50 MG/ML VIAL IVP PRN (18:30)
[2020-03-30] MEDS ORDERED: IV NORMAL SALINE 1000ML BAG 1,000 ML IV SCH (18:30)
[2020-03-30] MEDS ORDERED: MORPHINE SULFATE 2 MG/ML VIAL. IV PRN (18:30)
[2020-03-30] MEDS ORDERED: ONDANSETRON PF 4 MG/2 ML VIAL. IVP PRN (18:30)
[2020-03-30] MEDS ORDERED: cloNIDine HCL 0.1 MG TABLET PO PRN (18:30)
[2020-03-30] MEDS ORDERED: HALOPERIDOL LACTATE 5 MG/ML VIAL. IVP PRN (18:30)
[2020-03-30] MEDS: MULTIVITAMIN with MINERAL TABLET. PO SCH (19:23)
[2020-03-30] MEDS: THIAMINE 100 MG TABLET. PO SCH (19:23)
[2020-03-30] MEDS: ENOXAPARIN 40 MG/0.4 ML SYRINGE. SQ SCH (19:24)
[2020-03-30] MEDS: FOLIC ACID 1 MG TABLET. PO SCH (19:29)
[2020-03-30 20:55] VITALS: BP 160/83
--- NOTE | 2020-03-30 20:55 | NUR ---
The patient, THONY GRIGGS, 65 y/o, M admitted by PERRY DAVIS MD, was given written information regarding hospital policies, unit procedures and contact persons. Valuables were checked and left with him.
[2020-03-30] MEDS ORDERED: NITROGLYCERIN SUBLINGUAL 0.4 MG BOTTLE OF 25. SL PRN (21:00)
[2020-03-30] MEDS: KETOROLAC 30 MG/ML VIAL. IV PRN (21:38)
[2020-03-30] MEDS: ATORVASTATIN CALCIUM 40 MG TABLET. PO SCH (21:38)
[2020-03-30] MEDS: traZODone 50 MG TABLET. PO SCH (21:38)
[2020-03-30] MEDS: GABAPENTIN 300 MG CAPSULE. PO SCH (21:38)
[2020-03-30] MEDS: DOCUSATE SODIUM 100 MG CAPSULE. PO SCH (21:38)
[2020-03-30 23:03] VITALS: BP 140/82
[2020-03-31 02:34] VITALS: BP 130/71
[2020-03-31] MEDS: METOPROLOL IV PUSH 5 MG/5 ML VIAL. IVP PRN ×3 (02:54→20:04)
[2020-03-31] MEDS: KETOROLAC 30 MG/ML VIAL. IV PRN ×2 (05:33→19:58)
[2020-03-31] MEDS: PANTOPRAZOLE 40 MG TABLET.DR. PO SCH (06:29)
[2020-03-31 07:00] VITALS: BP 143/80
[2020-03-31] MEDS: MULTIVITAMIN with MINERAL TABLET. PO SCH (08:12)
[2020-03-31] MEDS: FOLIC ACID 1 MG TABLET. PO SCH (08:13)
[2020-03-31] MEDS: THIAMINE 100 MG TABLET. PO SCH (08:13)
[2020-03-31] MEDS: ISOSORBIDE MONONITRATE ER 30 MG TAB.ER.24H PO SCH (08:13)
[2020-03-31] MEDS: ASPIRIN ENTERIC COATED 81 MG TABLET.DR. PO SCH (08:13)
[2020-03-31] MEDS: METOPROLOL SUCC 24HR ER 25 MG TAB.ER.24H. PO SCH (08:14)
[2020-03-31] MEDS: GABAPENTIN 300 MG CAPSULE. PO SCH ×3 (08:17→19:58)
[2020-03-31] MEDS: DOCUSATE SODIUM 100 MG CAPSULE. PO SCH ×2 (08:25→19:58)
--- NOTE | 2020-03-31 09:24 | NUR ---
SW following. Discussed with RN, pt homeless, room air, regular diet. ALEX consulted for ETOH - pt apparently wanting ETOH treatment. [facility]AD[facility] will continue to follow. Addendum: 03/31/20 at 1516 by ANNE LEUNG Suze (ALEX) met with pt, pt is agreeable to go to [facility] when medically stable to discharge. RN notified. MADHU will continue to follow.
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
[2020-03-31 11:00] VITALS: BP 128/78
[2020-03-31 14:43] LABS: ALBUMIN 2.8 g/dL (3.4-5.0); ALBUMIN/GLOBULIN RATIO 0.8 (1.0-1.7); CALCIUM 8.4 mg/dL (8.5-10.1); CREATININE 1.3 mg/dL (0.7-1.3); GFR 55.8; MAGNESIUM 1.6 mg/dL (1.8-2.4); POTASSIUM 3.9 mmol/L (3.5-5.1); TOTAL BILIRUBIN 2.1 mg/dL (0.2-1.0); TOTAL PROTEIN 6.2 g/dL (6.4-8.2)
[2020-03-31 15:00] VITALS: BP 129/74
[2020-03-31 19:00] VITALS: BP 148/74
[2020-03-31] MEDS: ENOXAPARIN 40 MG/0.4 ML SYRINGE. SQ SCH (19:57)
[2020-03-31] MEDS: traZODone 50 MG TABLET. PO SCH (19:58)
[2020-03-31] MEDS: ATORVASTATIN CALCIUM 40 MG TABLET. PO SCH (19:58)
[2020-03-31 23:00] VITALS: BP 138/84
[2020-04-01 03:00] VITALS: BP 141/73
[2020-04-01] MEDS: PANTOPRAZOLE 40 MG TABLET.DR. PO SCH (04:52)
[2020-04-01 07:00] VITALS: BP 173/113
[2020-04-01] MEDS: FOLIC ACID 1 MG TABLET. PO SCH (08:31)
[2020-04-01] MEDS: ISOSORBIDE MONONITRATE ER 30 MG TAB.ER.24H PO SCH (08:32)
[2020-04-01] MEDS: DOCUSATE SODIUM 100 MG CAPSULE. PO SCH ×3 (08:32→20:11)
[2020-04-01] MEDS: THIAMINE 100 MG TABLET. PO SCH (08:32)
[2020-04-01] MEDS: GABAPENTIN 300 MG CAPSULE. PO SCH ×3 (08:32→20:11)
[2020-04-01] MEDS: ASPIRIN ENTERIC COATED 81 MG TABLET.DR. PO SCH (08:32)
[2020-04-01] MEDS: MULTIVITAMIN with MINERAL TABLET. PO SCH (08:32)
[2020-04-01] MEDS: METOPROLOL SUCC 24HR ER 25 MG TAB.ER.24H. PO SCH (08:33)
--- NOTE | 2020-04-01 09:50 | NUR ---
SW following. Discussed with RN, pt on room air, regular diet. Withdrawing still. Pt can go to [facility] when medically stable. SW awaiting verification of whether pt can go there over the weekend. SW will continue to follow.
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
[2020-04-01 11:00] VITALS: BP 154/90
[2020-04-01 15:00] VITALS: BP 137/88
[2020-04-01 19:00] VITALS: BP 142/86
[2020-04-01] MEDS: METOPROLOL IV PUSH 5 MG/5 ML VIAL. IVP PRN (20:10)
[2020-04-01] MEDS: ENOXAPARIN 40 MG/0.4 ML SYRINGE. SQ SCH (20:11)
[2020-04-01] MEDS: ATORVASTATIN CALCIUM 40 MG TABLET. PO SCH (20:11)
[2020-04-01] MEDS: KETOROLAC 30 MG/ML VIAL. IV PRN (20:12)
[2020-04-01] MEDS: traZODone 50 MG TABLET. PO SCH (20:12)
[2020-04-01 23:00] VITALS: BP 112/82
[2020-04-02 03:00] VITALS: BP 164/99
[2020-04-02] MEDS: PANTOPRAZOLE 40 MG TABLET.DR. PO SCH (05:31)
[2020-04-02 07:00] VITALS: BP 160/106
[2020-04-02] MEDS: GABAPENTIN 300 MG CAPSULE. PO SCH ×3 (08:03→21:29)
[2020-04-02] MEDS: METOPROLOL SUCC 24HR ER 25 MG TAB.ER.24H. PO SCH (08:03)
[2020-04-02] MEDS: MULTIVITAMIN with MINERAL TABLET. PO SCH (08:03)
[2020-04-02] MEDS: FOLIC ACID 1 MG TABLET. PO SCH (08:03)
[2020-04-02] MEDS: ASPIRIN ENTERIC COATED 81 MG TABLET.DR. PO SCH (08:03)
[2020-04-02] MEDS: ISOSORBIDE MONONITRATE ER 30 MG TAB.ER.24H PO SCH (08:03)
[2020-04-02] MEDS: THIAMINE 100 MG TABLET. PO SCH (08:03)
[2020-04-02] MEDS: DOCUSATE SODIUM 100 MG CAPSULE. PO SCH ×3 (08:04→21:30)
[2020-04-02] MEDS: KETOROLAC 30 MG/ML VIAL. IV PRN (08:21)
[2020-04-02 08:39] LABS: BASO # 0.1 x10^3/uL (0.0-0.2); BASO % 1 % (0-3); EOS # 0.2 x10^3/uL (0.0-0.7); EOS % 4 % (0-3); HEMATOCRIT 41.2 % (39.0-53.0); HEMOGLOBIN 13.9 g/dL (13.0-17.5); LYMPH # 1.9 x10^3/uL (1.0-4.8); LYMPH % 30 % (24-48); MEAN CORPUSCULAR HEMOGLOBIN 31 pg (25-35); MEAN CORPUSCULAR HGB CONC 34 g/dL (31-37); MEAN CORPUSCULAR VOLUME 91 fL (79-100); MONO # 0.6 x10^3/uL (0.0-1.1); MONO % 10 % (0-9); NEUT # 3.5 x10^3/uL (1.8-7.7); NEUT % 56 % (31-73); PLATELET COUNT 94 x10^3/uL (140-400); RED BLOOD COUNT 4.53 x10^6/uL (4.30-5.70); RED CELL DISTRIBUTION WIDTH 16.3 % (11.5-14.5); WHITE BLOOD COUNT 6.3 x10^3/uL (4.0-11.0)
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
[2020-04-02 09:15] LABS: ALBUMIN 3.1 g/dL (3.4-5.0); ALBUMIN/GLOBULIN RATIO 0.8 (1.0-1.7); CALCIUM 9.3 mg/dL (8.5-10.1); CREATININE 0.8 mg/dL (0.7-1.3); GFR 97.6; TOTAL BILIRUBIN 0.8 mg/dL (0.2-1.0)
[2020-04-02 11:00] VITALS: BP 138/95
[2020-04-02] MEDS: ACETAMINOPHEN 325 MG TABLET. PO PRN ×2 (13:40→23:57)
[2020-04-02 15:00] VITALS: BP 109/80
[2020-04-02 19:00] VITALS: BP 155/113
[2020-04-02] MEDS: traZODone 50 MG TABLET. PO SCH (21:29)
[2020-04-02] MEDS: ATORVASTATIN CALCIUM 40 MG TABLET. PO SCH (21:29)
[2020-04-02] MEDS: ENOXAPARIN 40 MG/0.4 ML SYRINGE. SQ SCH (21:30)
[2020-04-02 23:03] VITALS: BP 150/90
[2020-04-03] VITALS (8 sets, daily range): BP systolic 113–209; BP diastolic 72–128
[2020-04-03] MEDS: METOPROLOL IV PUSH 5 MG/5 ML VIAL. IVP PRN (04:31)
[2020-04-03] MEDS: PANTOPRAZOLE 40 MG TABLET.DR. PO SCH (07:28)
[2020-04-03] MEDS: FOLIC ACID 1 MG TABLET. PO SCH (09:00)
[2020-04-03] MEDS: DOCUSATE SODIUM 100 MG CAPSULE. PO SCH ×3 (09:00→20:19)
[2020-04-03] MEDS: THIAMINE 100 MG TABLET. PO SCH (09:15)
[2020-04-03] MEDS: MULTIVITAMIN with MINERAL TABLET. PO SCH (09:15)
[2020-04-03] MEDS: GABAPENTIN 300 MG CAPSULE. PO SCH ×3 (09:16→20:08)
[2020-04-03] MEDS: ASPIRIN ENTERIC COATED 81 MG TABLET.DR. PO SCH (09:16)
[2020-04-03] MEDS: METOPROLOL SUCC 24HR ER 25 MG TAB.ER.24H. PO SCH (09:17)
[2020-04-03] MEDS: ISOSORBIDE MONONITRATE ER 30 MG TAB.ER.24H PO SCH (09:17)
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
[2020-04-03] MEDS: KETOROLAC 30 MG/ML VIAL. IV PRN ×2 (14:08→20:11)
[2020-04-03] MEDS: ACETAMINOPHEN 325 MG TABLET. PO PRN (19:26)
[2020-04-03] MEDS: ATORVASTATIN CALCIUM 40 MG TABLET. PO SCH (20:08)
[2020-04-03] MEDS: traZODone 50 MG TABLET. PO SCH (20:08)
[2020-04-03] MEDS: ENOXAPARIN 40 MG/0.4 ML SYRINGE. SQ SCH (20:09)
[2020-04-04 03:24] VITALS: BP 155/86
[2020-04-04] MEDS: PANTOPRAZOLE 40 MG TABLET.DR. PO SCH (06:20)
[2020-04-04 07:00] VITALS: BP 159/83
[2020-04-04] MEDS: METOPROLOL IV PUSH 5 MG/5 ML VIAL. IVP PRN (07:41)
[2020-04-04] MEDS: KETOROLAC 30 MG/ML VIAL. IV PRN (07:50)
[2020-04-04] MEDS: DOCUSATE SODIUM 100 MG CAPSULE. PO SCH (09:00)
[2020-04-04] MEDS: FOLIC ACID 1 MG TABLET. PO SCH (10:02)
[2020-04-04] MEDS: THIAMINE 100 MG TABLET. PO SCH (10:03)
[2020-04-04] MEDS: ASPIRIN ENTERIC COATED 81 MG TABLET.DR. PO SCH (10:03)
[2020-04-04] MEDS: GABAPENTIN 300 MG CAPSULE. PO SCH ×2 (10:03→14:34)
[2020-04-04] MEDS: MULTIVITAMIN with MINERAL TABLET. PO SCH (10:03)
[2020-04-04] MEDS: METOPROLOL SUCC 24HR ER 25 MG TAB.ER.24H. PO SCH (10:03)
[2020-04-04] MEDS: ISOSORBIDE MONONITRATE ER 30 MG TAB.ER.24H PO SCH (10:04)
--- NOTE | 2020-04-04 10:22 | NUR ---
SW following. Discussed with RN, pt discharging to [facility] today. Jose Smith will collect pt between [phone]. RN notified. No further SW needs. SW will continue to follow.
[2020-04-04 11:00] VITALS: BP 159/87
[2020-04-04] MEDS ORDERED: ASPI-886 PO (12:37)
[2020-04-04] MEDS ORDERED: Folic Acid PO (12:37)
[2020-04-04] MEDS ORDERED: THIA100T22 PO (12:37)
[2020-04-04] MEDS ORDERED: GABA300C18 PO (12:37)
[2020-04-04] MEDS ORDERED: ATOR80TA72 PO (12:37)
[2020-04-04] MEDS ORDERED: ISOS30TA68 PO (12:37)
[2020-04-04] MEDS ORDERED: OMEP-346 PO (12:37)
[2020-04-04] MEDS ORDERED: MIRT-36 PO (12:37)
[2020-04-04] MEDS ORDERED: METO-239 PO (12:37)
--- NOTE | 2020-04-04 12:39 | SNU/HH DC ---
DISCHARGE ORDERS DISCHARGE INFORMATION: DISCHARGE DATE: Apr 04, 2020 FINAL DIAGNOSIS Problems Medical Problems: (1) Alcohol intoxication Status: Acute CONDITION ON DISCHARGE: Stable CODE STATUS: Code Status: Full POST DISCHARGE ORDERS: ACTIVITY ORDERS: Activity as tolerated WEIGHT BEARING STATUS: Full weight bearing, As tolerated CHECKS AFTER DISCHARGE: CHECKS AFTER DISCHARGE: Check blood press - daily, Check your Temp as needed FOLLOW-UP: PHYSICIAN FOLLOW-UP: PCP within 2 weeks of discharge ADDITIONAL FOLLOW-UP: CBC, CMP within 2 weeks of discharge DISCHARGE MEDICATIONS: Home Meds Active Scripts Hydrocortisone Acetate (ANTI-ITCH) 28 Gm Oint...g., 1 MEY TP TID for Rash for 10 Days, #20 G Prov:PERRY DAVIS MD 08/05/19 Metoprolol Succinate (Toprol XL) 50 Mg Tab.er.24h, 50 MG PO DAILY for Afib for 30 Days, #30 TAB.SR 5 Refills Prov:PERRY DAVIS MD 08/05/19 Reported Medications Trazodone Hcl (TRAZODONE HCL) 50 Mg Tablet, 1 TAB PO QHS for insomnia, #30 TAB 1 Refill 08/05/19 Omeprazole (Omeprazole) 20 Mg Tab.rap.dr, 20 MG PO BID for gerd, TAB 08/05/19 Nitroglycerin (NITROGLYCERIN SubLingual) 0.4 Mg Tab.subl, 0.4 MG SL PRN Q5MIN PRN for CHEST PAIN, BOTTLE 08/05/19 Multivitamin With Minerals (MULTIVITAMINS WITH MINERALS) 1 Each Tablet, 1 TAB PO DAILY for supplement for 30 Days, #30 TAB 0 Refills 08/05/19 Mirtazapine (REMERON) 15 Mg Tablet, 7.5 MG PO HS for unknown, TAB 08/05/19 Isosorbide Mononitrate (ISOSORBIDE MONONITRATE ER) 30 Mg Tab.er.24h, 1 TAB PO DAILY for htn, #30 TAB 5 Refills 08/05/19 Hydroxyzine Hcl (HYDROXYZINE HCL) 50 Mg Tablet, 50 MG PO BID for unknown, TAB 08/05/19 Docusate Sodium (COLACE) 100 Mg Capsule, 1 CAP PO BID for constipation for 30 Days, #60 CAP 0 Refills 08/05/19 Atorvastatin Calcium (Atorvastatin Calcium) 80 Mg Tablet, 80 MG PO QHS for FOR HIGH CHOLESTEROL, TAB 08/05/19 Acetaminophen (ACETAMINOPHEN) 500 Mg Tablet, 1 TAB PO PRN Q6HRS PRN for pain or fever for 15 Days, #60 TAB 0 Refills 08/05/19 Aspirin (ASPIRIN EC) 81 Mg Tablet., 1 TAB PO DAILY for heart prevention, #30 TAB 3 Refills 08/02/19 KENDALL MELARA MD Apr 04, 2020 12:39
[2020-04-04 15:00] VITALS: BP 152/81
--- NOTE | 2020-04-04 15:20 | NUR ---
CALL PLACED TO [facility] FOR TRANSPORT TO [facility], AWAITING TRANSPORT AT THIS TIME, PATIENT DRESSED AND READY TO GO, SALINE LOCK REMOVED.
[2020-04-04] MEDS: ACETAMINOPHEN 325 MG TABLET. PO PRN (16:20)
--- NOTE | 2020-04-04 16:45 | NUR ---
CALL NUMBER TWO PLACED TO [facility], PER THEIR ANSWERING SERVICE THEY ARE STILL TRYING TO GET A MAGISTRATE TO P/U UP THE PATIENT.
--- NOTE | 2020-04-04 18:15 | NUR ---
CALL NUMBER THREE PLACED TO [facility] AND NURSING COUNSELLORS INFORMED OF THE ATTEMPTS MADE TO RECEIVE TRANSPORT OUT OF THIS FACILITY, THEY INFORMED THIS [employer] TEXTILE SUPERVISOR THAT NO ONE FROM THIS FACILITY CALLED TO INFORM THEM THAT THEY STILL NEEDED TRANSPORTATION, THIS [employer] TEXTILE SUPERVISOR INFORMED THEM THAT WE STILL NEEDED TRANSPORTATION AND THAT WE HAD BEEN WAITING MOST OF THE DAY, STATED THAT THEY WOULD CONTINUE TO TRY AND FIND A YARN CONDITIONER.
[2020-04-04 19:00] VITALS: BP 156/97
--- NOTE | 2020-04-04 21:30 | NUR ---
DISCHARGE NOTE: Nursing cutting department supervisor called to notify this RN that there was a spare cab available for patient since [facility] had not shown up. Two belongings bags present, taken with patient. Patient left at approximately 2100.
[2020-04-05] MEDS ORDERED: CHLO25CA9 PO (20:44)
[2020-04-05] MEDS ORDERED: CEPH500T PO (20:44)
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
== END 2020-04-04 21:00 | DRG 92 ==
LOC: ER 10:35 → 5 NORTH 17:54
PROVIDERS: ADMIT Internal Medicine; ATTEND Internal Medicine
DX: G92 Toxic encephalopathy (principal); F10.231 Alcohol dependence with withdrawal delirium; F10.229 Alcohol dependence with intoxication, unspecified; Y90.8 Blood alcohol level of 240 mg/100 ml or more; Z59.0 Homelessness; Z86.73 Personal history of transient ischemic attack (TIA), and cerebral infarction without residual deficits; R56.9 Unspecified convulsions; F17.210 Nicotine dependence, cigarettes, uncomplicated; I11.0 Hypertensive heart disease with heart failure; I25.10 Atherosclerotic heart disease of native coronary artery without angina pectoris; I48.91 Unspecified atrial fibrillation; I50.9 Heart failure, unspecified; Z82.49 Family history of ischemic heart disease and other diseases of the circulatory system; F32.9 Major depressive disorder, single episode, unspecified; F41.9 Anxiety disorder, unspecified; M19.90 Unspecified osteoarthritis, unspecified site; R73.9 Hyperglycemia, unspecified; Z20.822 Contact with and (suspected) exposure to COVID-19
CPT/HCPCS: 36415; 80048; 80053; 83735; 85025; 87426; 96361; 96374; 96376; 99285; G0480; J1200; J1650; J1885; J2060; J2405; J3490; J7030; U0003; 97110-GO; 97116-GP; 97530-GP; G0378

== ENCOUNTER 2020-04-05 17:17 | Emergency (ER) | payer MEDICAID ==
[~2020-04-05] VITALS: Ht 177.8 cm; Wt 84.0 kg
[~2020-04-05 17:17] MED LIST changes: +Folic Acid PO; +GABA300C18 PO; +METO-239 PO; +THIA100T22 PO
[2020-04-05] MEDS ORDERED: chlordiazePOXIDE HCL 25 MG CAPSULE PO ONE ×2 (19:00→21:00)
[2020-04-05] MEDS ORDERED: CARVEDILOL 12.5 MG TABLET. PO ONE (19:00)
[2020-04-05] MEDS ORDERED: CEPH500T PO (20:44)
[2020-04-05] MEDS ORDERED: CHLO25CA9 PO (20:44)
--- NOTE | 2020-04-05 20:44 | ED.ADGEN ---
Past Medical History Past Medical History: A-Fib, Alcoholism, Arthritis, Hypertension, TIA Additional Past Medical Histor: DDD Past Surgical History: No Surgical History Smoking Status: Never Smoker Alcohol Use: Sober General Adult EDM: Chief Complaint: WITHDRAWL HPI: HPI: Patient 65-year-old male with a past medical history of alcoholism who presents to the emergency room from the [facility] for withdrawal symptoms. Patient states that he is supposed to be on a bunch of medications but does not have them. He also states that he started having shakes and his blood pressure went up today. The symptoms are consistent with prior withdrawal symptoms. He was discharged yesterday from the hospital after going through withdrawal protocol. He denies any other complaints. He has not had any seizures. He denies any vomiting, hallucinations, seizures, fever, chills, sweats, chest pain, shortness of breath, headache. Review of Systems: Review of Systems: Complete ROS is negative unless otherwise documented in HPI Current Medications: Current Medications Medications (Trade) Dose Ordered Sig/Zander Start Time Stop Time Status Last Admin Dose Admin Carvedilol (Coreg) 25 mg 1X ONCE 04/05/20 19:00 04/05/20 19:01 DC 04/05/20 19:21 25 MG Chlordiazepoxide (Librium) 25 mg 1X ONCE 04/05/20 21:00 04/05/20 21:01 DC Methocarbamol (Robaxin) 500 mg 1X ONCE 04/05/20 21:00 04/05/20 21:01 DC Naproxen (Naprosyn) 500 mg 1X ONCE 04/05/20 21:00 04/05/20 21:01 DC Allergies: Allergies: Allergies Coded Allergies Type Severity Reaction Last Updated Verified Penicillins Allergy Intermediate 03/24/20 Yes Physical Exam: PE: General: Awake, alert, NAD. Well Nourished, well hydrated. Cooperative HEENT: Atraumatic, EOMI, PERRL, airway patent, moist oral mucosa Neck: Supple, trachea midline Respiratory: CTA bilaterally, normal effort, no wheezing/crackles CV: RRR, no murmur, cap refill <2 GI: Soft, nondistended, nontender, no masses MSK: No obvious deformities Skin: Warm, dry, intact Neuro: A&O x3, speech NL, sensory and motor grossly intact, no focal deficits Psych: Normal affect, normal mood, not suicidal or homicidal, tremors Current Patient Data: Vital Signs: Vital Signs Date Time Temp Pulse Resp B/P (MAP) Pulse Ox O2 Delivery O2 Flow Rate FiO2 04/05/20 19:21 120 157/97 04/05/20 18:26 98.7 18 96 98.7 04/05/20 17:36 Room Air EKG: EKG: [] Heart Score: Risk Factors: Risk Factors: DM, Current or recent (<one month) smoker, HTN, HLP, family history of CAD, obesity. Risk Scores: Score 0 - 3: 2.5% MACE over next 6 weeks - Discharge Home Score 4 - 6: 20.3% MACE over next 6 weeks - Admit for Clinical Observation Score 7 - 10: 72.7% MACE over next 6 weeks - Early Invasive Strategies Radiology/Procedures: Radiology/Procedures: [] Course & Med Decision Making: Course & Med Decision Making Pertinent Labs and Imaging studies reviewed. (See chart for details) Patient 65-year-old male who presents to the emergency room complaining of withdrawal and not having his home medications. Upon my review his medications were sent to the pharmacy however they have not been picked up by [facility]. I have discussed the case with our PAT team, Dulce, who talked to the [facility] and they will fish bait picker his medications tomorrow. Patient was given Librium which resolved his tremors, tachycardia, hypertension. This is day 7 of withdrawal for the patient. At this time he does not need admission for withdrawal. We will send Librium as needed to the [facility]. He was given his blood pressure medication here in the emergency room. Patient's test results and vitals while in the ED were fully reviewed and discussed with the patient. Patient is stable and at this time does not need admission to the hospital. We have discussed strict return precautions and the importance of following up with their Primary Care Physician. Patient stated understanding and was given an opportunity to ask any questions. Patient is in agreement with plan. Minnie Disclaimer: Minnie Disclaimer: This electronic medical record was generated, in whole or in part, using a voice recognition dictation system. Departure Departure Impression: Primary Impression: Alcohol dependence with withdrawal delirium Disposition: 01 DC HOME SELF CARE/HOMELESS Condition: IMPROVED Referrals: UNKNOWN PCP NAME (PCP) Patient Instructions: Alcohol Withdrawal Scripts Cephalexin (CEPHALEXIN) 500 Mg Tablet 1 TAB PO TID for 5 Days, #15 TAB Prov: OWEN MEJIA MD 04/05/20 Chlordiazepoxide Hcl (CHLORDIAZEPOXIDE HCL) 25 Mg Capsule 25 MG PO Q6HRS PRN for withdrawal, #12 CAP Prov: OWEN MEJIA MD 04/05/20 OWEN MEJIA MD Apr 05, 2020 20:44
[2020-04-05] MEDS ORDERED: METHOCARBAMOL 500 MG TABLET PO ONE (21:00)
[2020-04-05] MEDS ORDERED: NAPROXEN 500 MG TABLET PO ONE (21:00)
[2020-04-05 22:04] VITALS: BP 140/90
== END 2020-04-05 22:26 | disposition home or self-care (01) ==
LOC: ER 17:17
DX: F10.231 Alcohol dependence with withdrawal delirium (principal); I48.20 Chronic atrial fibrillation, unspecified; M19.90 Unspecified osteoarthritis, unspecified site; I10 Essential (primary) hypertension; Z86.73 Personal history of transient ischemic attack (TIA), and cerebral infarction without residual deficits; Z88.0 Allergy status to penicillin; Y90.8 Blood alcohol level of 240 mg/100 ml or more
CPT/HCPCS: 99285